=== PATIENT | male | born 1945 | race Caucasian/White ===

== ENCOUNTER 2016-02-19 12:33 | Inpatient (IN) | payer MEDICARE, OTHER ==
[~2016-02-19] VITALS: Ht 180.3 cm; Wt 117.1 kg
--- OUTSIDE RECORDS SUMMARY | 2016-02-19 12:38 | XMS REPORT | Continuity of Care Document ---
Author Author [facility] Organization [facility] Address Unknown Phone Unavailable Care Team Providers Care Front Line Supervisor Name Role Phone Unknown, Unknown PCP Unavailable Source Comments Some departments are not documenting in the electronic medical record. If you do not see the information that you expected, contact Release of Information in the Health Information Management department at [phone] for further assistance in locating additional records.[facility] Active Allergies and Adverse Reactions Allergen Noted Date Severity Reactions Comments Sms Unclassified Drug 10/18/2004 Allergy recorded in SMS: ADVIL DECONGEST~Reactions: PASSED OUT Current Medications Prescription Sig. Disp. Refills Start End Date Status Date losartan-hydrochlorothiaz Take 1 Tab by mouth Active torri (HYZAAR) 100-25 mg PO daily. per tablet omeprazole (PRILOSEC OTC) Take 20 mg by mouth Active 20 mg PO tablet daily. simvastatin (ZOCOR) 20 mg Take 20 mg by mouth Active PO tablet daily. aspirin EC (ASPIR-81) 81 Take 81 mg by mouth Active mg PO tablet daily. will hold for sx fexofenadine(+) (FRITZ) Take 180 mg by mouth Active 180 mg PO tablet daily. montelukast (SINGULAIR) Take 10 mg by mouth Active 10 mg PO tablet daily. meclizine (ANTIVERT) 25 Take 25 mg by mouth Active mg PO tablet daily. DOCOSAHEXANOIC ACID/EPA Take 1,000 mg by mouth Active (FISH OIL PO) daily. fluticasone (FLONASE) 50 Insert 2 Sprays into nose 2 Inhaler 5 Active mcg/actuation nasal spray as directed twice daily. 12 Cholecalciferol (Vitamin Take 1 Cap by mouth Active D3) (VITAMIN D-3) 2,000 daily. unit cap GLUC SIMON DIPO CH/JAMI Take by mouth daily. Active SIMON/C/LATONYA (GLUCOSAM SIMON OXV-[id number]-K-MN PO) MULTIVITAMIN PO Take by mouth daily. Active acetaminophen (TYLENOL) Take 1,000 mg by mouth as Active 500 mg tablet Needed. guaiFENesin LA (MUCINEX) Take 600 mg by mouth as Active 600 mg tablet Needed. metFORMIN (GLUCOPHAGE) Take 500 mg by mouth Active 500 mg tablet twice daily with meals. naproxen (NAPROSYN) 500 Take 500 mg by mouth Active mg tablet twice daily with meals. diltiazem SA (+) (TIAZAC) Take 240 mg by mouth Active 240 mg capsule daily. cycloSPORINE (RESTASIS) Place 1 Drop into or Active 0.05 % ophthalmic around eye(s) twice emulsion daily. clindamycin (CLEOCIN T; Apply to affected area 60 mL 3 10/20/19 Active CLINDA-DERM) 1 % topical twice daily. to scalp 15 solution bumps twice daily fluoruracil (CARAC) 0.5 % Apply to affected area 30 g 3 10/20/19 Active topical cream daily. to face, ears, 15 forehead, cheeks x 30 days acetic acid 2 drops both ears twice a 1 Bottle 3 03/08/19 Active 2%/Hydrocortisone 1% day for itching times 7 16 (ACETASOL HC) 2-1 % otic days. solution dexamethasone (DECADRON) Place 2 drops in the 10 mL 3 09/13/19 Active 0.1 % ophthalmic solution right nostril 3 times a 16 day and take 1 week off every month Active Problems Problem Noted Date Epiphora 03/22/2011 Overview: Chronically watery eyes. No specific trigger or seasonal component. Has tried OTC antihistamines drops without control. Minimal change since last visit despite interval blepharoplasty. L ast Assessment & Plan: Allergic conjunctivitis vs dry eyes. Recommend follow up with ophthalmology for dry eye test. Continue allergy medical management. 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 Currently mostly asymptomatic. Overall still feels fairly well controlled from an allergy standpoint. Has frequent watery eyes, but otherwise minimal sinonasal allergy symptoms. Seeing Dr. Abreu later today. L ast Assessment & Plan: Continue current medical management. Again briefly reviewed immunotherapy as an option, but Mr. Valencia is not interested at this time. Unspecified essential hypertension Overview: OV-01/03/2010 Social History Tobacco Use Types Packs/Day Years Used Date Never Smoker Smokeless Tobacco: Never Used Alcohol Use Drinks/Week oz/Week Comments No Last Filed Vital Signs Vital Sign Reading Time Taken Blood Pressure 124/83 09/13/2015 11:40 AM CDT Pulse 76 09/13/2015 11:40 AM CDT Temperature - - Respiratory Rate - - Height 1.803 m (5' 11") 09/13/2015 11:40 AM CDT Weight 117.482 kg (259 lb) 09/13/2015 11:40 AM CDT Body Mass Index 36.14 09/13/2015 11:40 AM CDT Oxygen Saturation - - Plan of Care Date Type Specialty Providers Description 03/07/2016 Appointment Dermatology Srinivasa Sorto MD [id number] [facility] [address] [place] [address] [phone] (Fax) Health Maintenance Due Date Last Done Comments Hepatitis C Screening 1945 Physical (Comprehensive) 1952 Exam Pertussis Vaccine 1956 Tetanus Vaccine 1962 Colorectal Cancer 06/04/1995 Screening Shingles Vaccine 2005 Prevnar/Pneumovax (#1) 2010 Influenza Vaccine 10/13/2015 Results from Last 3 Months Not on file
[2016-02-19] MEDS ORDERED: METF500T4 PO (13:14)
[2016-02-19] MEDS ORDERED: OMEP20CA12 PO (13:14)
[2016-02-19] MEDS ORDERED: DILT240C87 PO (13:14)
[2016-02-19] MEDS ORDERED: NAPR500T PO (13:14)
[2016-02-19] MEDS ORDERED: MONT10TA24 PO (13:14)
[2016-02-19] MEDS ORDERED: LOSA1TAB70 PO (13:14)
[2016-02-19] MEDS ORDERED: MELO15TA39 PO (13:14)
[2016-02-19] MEDS ORDERED: TOLT2TAB5 PO (13:14)
[2016-02-19] MEDS ORDERED: SIMV20TA3 PO (13:14)
[2016-02-19] MEDS ORDERED: MECL-106 PO (13:14)
[2016-02-19] MEDS ORDERED: NS IV 1000 ML 1,000 ML IV SCH (14:15)
[2016-02-19] MEDS ORDERED: ONDANSETRON 4 MG/2 ML (SDV) Z0FRAN IVP ONE (14:15)
[2016-02-19 14:27] LABS: BILIRUBIN,URINE NEGATIVE (NEGATIVE); KETONES,URINE NEGATIVE (NEGATIVE); LEUKOCYTE ESTERASE ,URINE NEGATIVE (NEGATIVE); NITRITE,URINE NEGATIVE (NEGATIVE); PH,URINE 7 (5-9); PROTEIN,URINE NEGATIVE (NEGATIVE); UROBILINOGEN,URINE NORMAL (NORMAL)
[2016-02-19 14:33] LABS: SQUAMOUS EPITHELIAL CELL,UR RARE /HPF
[2016-02-19 14:41] LABS: BASOPHILS % (AUTO) 0 % (0-10); EOSINOPHILS % (AUTO) 0 % (0-10); LYMPHOCYTES # (AUTO) 2.1 X 10^3 (1.0-4.0); LYMPHOCYTES % (AUTO) 12 % (12-44); MEAN CORPUSCULAR HEMOGLOBIN 30 PG (25-34); MEAN CORPUSCULAR HGB CONC 34 G/DL (32-36); MEAN CORPUSCULAR VOLUME 88 FL (80-99); MEAN PLATELET VOLUME 10.2 FL (7.4-10.4); MONOCYTES # (AUTO) 0.8 X 10^3 (0.0-1.0); MONOCYTES % (AUTO) 5 % (0-12); NEUTROPHILS # (AUTO) 14.5 X 10^3 (1.8-7.8); NEUTROPHILS % (AUTO) 83 % (42-75); PLATELET COUNT 254 10^3/uL (130-400); RED BLOOD COUNT 5.44 10^6/uL (4.35-5.85); RED CELL DISTRIBUTION WIDTH 13.8 % (10.0-14.5); WHITE BLOOD COUNT 17.5 10^3/uL (4.3-11.0)
--- NOTE | 2016-02-19 14:58 | Diagnostic Imaging Report ---
PROCEDURE: CT abdomen and pelvis without contrast. TECHNIQUE: Multiple contiguous axial images were obtained through the abdomen and pelvis without the use of intravenous contrast. INDICATION: Abdominal pain, nausea, vomiting COMPARISON: March 16, 2011 FINDINGS: Calcified granuloma are identified within the right lung base. Mild bibasilar scarring and/or atelectasis. Calcified mediastinal and hilar lymph nodes are partially visualized. No significant pericardial effusion. No significant basilar pleural effusion. Small hiatal hernia. The unenhanced liver is unremarkable. Calcified splenic granuloma. Otherwise, the spleen is unremarkable. The adrenal glands are unremarkable. The gallbladder is unremarkable. A 4 mm calculus is identified within the proximal right ureter. This is resulting in mild right hydroureteronephrosis. Several additional renal calculi are identified within the right kidney, largest measuring up to 5 mm. Several nonobstructing left renal calculi are again identified. 1.6 cm hypodensity arising from the lateral aspect of the inferior pole of the left kidney has not significantly changed since 2011, suggesting a benign etiology. Significant fat stranding is identified within the right upper quadrant of the abdomen, particularly about the duodenum and head of the pancreas with inflammatory stranding extending towards the right renal hilum. Additional fat stranding and fluid is seen involving the anterior right pararenal fascia. The pancreatic parenchyma appears grossly unremarkable. Mild vascular calcifications within abdominal aorta and its branch vessels without aneurysmal dilatation of abdominal aorta. Small fat-containing umbilical hernia. The urinary bladder is unremarkable. Minimal colonic diverticulosis. No bowel obstruction or pneumatosis. Prasanth hepatic lymph node is borderline enlarged measuring 1.6 cm in short dimension, slightly more prominent than the prior examination. No free air. No acute osseous abnormality with scattered osseous degenerative changes. IMPRESSION: 1. 4 mm calculus within the proximal right ureter resulting in mild right hydroureteronephrosis. 2. Additional bilateral renal calculi, nonobstructing on the left. 3. Significant fat stranding within the right upper quadrant adjacent to the duodenum and pancreatic head extending to the right renal pelvis. These findings are nonspecific. Findings may simply relate to underlying pyelonephritis. However, duodenitis or pancreatitis could appear similar. Recommend clinical correlation with laboratory values for pancreatitis. No focal fluid collection is seen. 4. Borderline prominent prasanth hepatic lymph nodes, likely reactive. 5. Evidence of chronic granulomatous disease. 6. Small hiatal hernia. 7. Additional findings as above. Dictated by: Dictated on workstation # [id number]
[2016-02-19 15:00] LABS: ALANINE AMINOTRANSFERASE 44 U/L (0-55); ALBUMIN 4.4 G/DL (3.2-4.5); ANION GAP 11 MMOL/L (5-14); ASPARTATE AMINO TRANSFERASE 23 U/L (5-34); BILIRUBIN,TOTAL 0.6 MG/DL (0.1-1.0); BLOOD UREA NITROGEN 21 MG/DL (7-18); BUN/CREATININE RATIO 22; CALCIUM 9.5 MG/DL (8.5-10.1); CARBON DIOXIDE 25 MMOL/L (21-32); CHLORIDE 102 MMOL/L (98-107); CREATININE SERUM 0.97 MG/DL (0.60-1.30); GFR ESTIMATED > 60; GLUCOSE 126 MG/DL (70-105); LIPASE 15 U/L (8-78); POTASSIUM 3.8 MMOL/L (3.6-5.0); SODIUM 138 MMOL/L (135-145); TOTAL PROTEIN 7.3 G/DL (6.4-8.2)
[2016-02-19 15:22] LABS: BAND NEUTROPHILS 0 %; BASOPHILS % (MANUAL) 1 %; EOSINOPHILS % (MANUAL) 0 %; LYMPHOCYTES % (MANUAL) 4 %; NEUTROPHILS % (MANUAL) 82 %; REACTIVE LYMPHOCYTES 12 %
[2016-02-19] MEDS ORDERED: cefTRIAXone 1 GM (ROCEPHIN) VIAL ONE ×2 (15:34→15:43)
[2016-02-19] MEDS ORDERED: NORMAL SALINE (BAXTER MINI) 50 ML IV ONE (15:34)
--- NOTE | 2016-02-19 15:43 | ED Abdominal Pain ---
General Chief Complaint: Abdominal/GI Problems Stated Complaint: BACK PAIN/VOMITING Nursing Triage Note: Ambulatory to ED 10 with complaints of right flank pain and vomiting. Sepsis Screen: No Definite Risk Source of Information: Patient, Family Exam Limitations: No Limitations History of Present Illness Time Seen By Provider: 15:37 Initial Comments This 70-year-old male presents with a history of right flank and right upper abdominal pain that began last night and progressed today. The patient had associated nausea and vomiting. The patient stated the back and abdominal pain became severe. It was nonradiating. The patient had no associated cough, shortness of breath, palpitations, pressure type chest pain, headache or stiff neck, recent change in medication, or diarrhea. The patient has had had some constipation but has been able have 2 small bowel movements after employing a stool softener. Patient's past medical history includes hypertension. Allergies and Home Medications Allergies Coded Allergies: Fluticasone (Verified Allergy, Unknown, 06/17/08) Salmeterol (Verified Allergy, Unknown, 06/17/08) Home Medications Diltiazem HCl 240 Mg Capsule.er 240 MG PO DAILY (Reported) Losartan/Hydrochlorothiazide 1 Each Tablet 1 EACH PO DAILY (Reported) Meclizine HCl 25 Mg Tablet 25 MG PO TID (Reported) Meloxicam 15 Mg Tablet 15 MG PO DAILY (Reported) Metformin HCl 500 Mg Tablet 500 MG PO BID WITH MEALS (Reported) Montelukast Sodium 10 Mg Tablet 10 MG PO DAILY (Reported) Naproxen 500 Mg Tablet 500 MG PO DAILY (Reported) Omeprazole 20 Mg Capsule.dr 20 MG PO DAILY (Reported) Simvastatin 20 Mg Tablet 20 MG PO DAILY (Reported) Tolterodine Tartrate 2 Mg Tablet 2 MG PO BID (Reported) Review of Systems Constitutional: No chills, No fever EENTM: No Blurred Vision Respiratory: Denies Cough Cardiovascular: Denies Chest Pain Gastrointestinal: Abdominal Pain ConstipatedDenies Diarrhea, Denies Rectal Bleeding, Vomiting Genitourinary: Denies Burning, Denies Frequency, Flank Pain (right-sided) Musculoskeletal: back painNo joint pain Skin: No rash Psychiatric/Neurological: No Symptoms Reported Endocrine: No Symptoms Reported Hematologic/Lymphatic: No Symptoms Reported Past Boeghlw-Agtqwe-Bzibvi Hx Patient Social History Alcohol Use: Denies Use Recreational Drug Use: No Smoking Status: Never a Smoker Recent Foreign Travel: No Contact w/Someone Who Travel: No Recent Infectious Disease Expo: No Recent Hopitalizations: No Physical Abuse Screen: No Sexual Abuse: No Immunizations Up To Date Tetanus Booster (TDap): Less than 5yrs PED Vaccines UTD: Yes Seasonal Allergies Seasonal Allergies: No Respiratory Hx Respiratory Disorders: No Cardiovascular Hx Cardiac Disorders: Yes Cardiac Disorders: High Cholesterol, Hypertension Neurological Hx Neurological Disorders: No Reproductive System Hx Reproductive Disorders: No Sexually Transmitted Disease: No Genitourinary Hx Genitourinary Disorders: No Gastrointestinal Hx Gastrointestinal Disorders: Yes (hiatal hernia) Gastrointestinal Disorders: Gastroesophageal Reflux Musculoskeletal Hx Musculoskeletal Disorders: Yes (arthritis) Endocrine Hx Endocrine Disorders: No HEENT HX ENT Disorders: Yes (cochlear implant) Cancer Hx Cancer: No Psychosocial Hx Psychiatric Problems: No Blood Transfusions Hx Blood Disorders: No Reviewed Nursing Assessment Reviewed/Agree w Nursing PMH: Yes Physical Exam Vital Signs VS - Last 72 Hours, by Label 02/19/16 13:05 Temp 97.9 Pulse 66 Resp 18 B/P 139/90 Pulse Ox 94 O2 Delivery Room Air Capillary Refill : Less Than 3 Seconds General Appearance: WD/WN mild distress HEENT: normal ENT inspection Neck: normal inspection Respiratory: lungs clear normal breath sounds no respiratory distress no accessory muscle use Cardiovascular: normal peripheral pulses regular rate, rhythm no murmur Gastrointestinal: normal bowel sounds non tender soft no organomegaly Extremities: normal range of motion non-tender normal inspection no pedal edema Back: normal inspection Neurologic/Psychiatric: no motor/sensory deficits alert normal mood/affect Skin: normal color warm/dry Progress/Results/Core Measures Results/Orders Lab Results Laboratory Tests Test 02/19/16 14:20 02/19/16 14:30 Range/Units Urine Bacteria NEGATIVE /HPF Urine Bilirubin NEGATIVE NEGATIVE Urine Casts NONE /LPF Urine Clarity CLEAR Urine Color YELLOW Urine Crystals NONE /LPF Urine Culture Indicated NO Urine Glucose (UA) NEGATIVE NEGATIVE Urine Ketones NEGATIVE NEGATIVE Urine Leukocyte Esterase NEGATIVE NEGATIVE Urine Mucus NEGATIVE /LPF Urine Nitrite NEGATIVE NEGATIVE Urine Protein NEGATIVE NEGATIVE Urine RBC TNTC H /HPF Urine RBC (Auto) 5+ H NEGATIVE Urine Specific [place] 1.010 L 1.016-1.022 Urine Squamous Epithelial Cells RARE /HPF Urine Urobilinogen NORMAL NORMAL MG/DL Urine WBC NONE /HPF Urine pH 7 5-9 Alanine Aminotransferase (ALT/SGPT) 44 0-55 U/L Albumin 4.4 3.2-4.5 G/DL Alkaline Phosphatase 74 40-136 U/L Anion Gap 11 5-14 MMOL/L Aspartate Amino Transf (AST/SGOT) 23 5-34 U/L BUN/Creatinine Ratio 22 Band Neutrophils 0 % Basophils # (Auto) 0.0 0.0-0.1 10^3/uL Basophils % (Manual) 1 % Basophils (%) (Auto) 0 0-10 % Blood Morphology Comment NORMAL Blood Urea Nitrogen 21 H 7-18 MG/DL Calcium Level 9.5 8.5-10.1 MG/DL Carbon Dioxide Level 25 21-32 MMOL/L Chloride Level 102 98-107 MMOL/L Creatinine 0.97 0.60-1.30 MG/DL Eosinophils # (Auto) 0.0 0.0-0.3 10^3/uL Eosinophils % (Manual) 0 % Eosinophils (%) (Auto) 0 0-10 % Estimat Glomerular Filtration Rate > 60 Glucose Level 126 H 70-105 MG/DL Hematocrit 48 40-54 % Hemoglobin 16.3 13.3-17.7 G/DL Lipase 15 8-78 U/L Lymphocytes # (Auto) 2.1 1.0-4.0 X 10^3 Lymphocytes % (Manual) 4 % Lymphocytes (%) (Auto) 12 12-44 % Mean Corpuscular Hemoglobin 30 25-34 PG Mean Corpuscular Hemoglobin Concent 34 32-36 G/DL Mean Corpuscular Volume 88 80-99 FL Mean Platelet Volume 10.2 7.4-10.4 FL Monocytes # (Auto) 0.8 0.0-1.0 X 10^3 Monocytes % (Manual) 1 % Monocytes (%) (Auto) 5 0-12 % Neutrophils # (Auto) 14.5 H 1.8-7.8 X 10^3 Neutrophils % (Manual) 82 % Neutrophils (%) (Auto) 83 H 42-75 % Platelet Count 254 130-400 10^3/uL Potassium Level 3.8 3.6-5.0 MMOL/L Reactive Lymphocytes 12 % Red Blood Count 5.44 4.35-5.85 10^6/uL Red Cell Distribution Width 13.8 10.0-14.5 % Sodium Level 138 135-145 MMOL/L Total Bilirubin 0.6 0.1-1.0 MG/DL Total Protein 7.3 6.4-8.2 G/DL White Blood Count 17.5 H 4.3-11.0 10^3/uL My Orders Orders-KIKA RODRIGUEZ MD Cbc With Automated Diff (02/19/16 14:12) Comprehensive Metabolic Panel (02/19/16 14:12) Ua Culture If Indicated (02/19/16 14:12) Lipase (02/19/16 14:12) Ct Abdomen/Pelvis Wo (02/19/16 14:12) Ns Iv 1000 Ml (Sodium Chloride 0.9%) (02/19/16 14:15) Ondansetron Injection (Zofran Injectio (02/19/16 14:15) Manual Differential (02/19/16 14:30) Rocephin 2 Gm Iv (1x Dose) (02/19/16 15:45) Fentanyl Injection (Sublimaze Injection (02/19/16 15:45) Medications Given in ED Current Medications Medications Dose Ordered Sig/Chip Route Start Time Stop Time Status Last Admin Dose Admin Ondansetron HCl 4 mg ONCE ONCE IVP 02/19/16 14:15 02/19/16 14:16 DC 02/19/16 14:32 4 MG Vital Signs/I&O Vital Sign - Last 12Hours 02/19/16 13:05 Temp 97.9 Pulse 66 Resp 18 B/P 139/90 Pulse Ox 94 O2 Delivery Room Air Blood Pressure Mean: 106 Progress Note : Time: 15:42 Progress Note The patient's CT abdomen and pelvis demonstrated a 4 mm proximal right ureteral stone. There was some evidence of inflammation about the duodenum and pancreatic head. The patient's nausea was abated with IV ondansetron. The patient's pain was treated with 50 g of fentanyl and the patient's probable pyelonephritis from an obstructing ureteral calculi was treated with 2 g of Rocephin. Departure Communication Time/Spoke to Admitting Phy: 15:[address] Rubin Impression Impression: Primary Impression: Right ureteral calculus Additional Impressions: Right ureteral stone Pyelonephritis Disposition: ADMITTED INPATIENT Condition: Improved Decision to Admit Reason: Admit from ER (General) Decision to Admit/Date: Feb 19, 2016 Time/Decision to Admit Time: 15:45 Departure-Patient Inst. Referrals: EMILE DAVID DO (PCP/Family) Primary Care Physician KIKA RODRIGUEZ MD Feb 19, 2016 15:43
[2016-02-19] MEDS ORDERED: CEFTRIAXONE IV ONE (15:45)
[2016-02-19] MEDS ORDERED: NORMAL SALINE IV ONE (15:45)
[2016-02-19] MEDS ORDERED: fentaNYL INJECTION 100 MCG/2 ML AMP IVP PRN (15:45)
[2016-02-19 16:15] VITALS: BP 153/82
[2016-02-19] MEDS ORDERED: ONDANSETRON 4 MG/2 ML (SDV) Z0FRAN IV PRN (16:45)
[2016-02-19] MEDS ORDERED: fentaNYL INJECTION 100 MCG/2 ML AMP IV PRN (16:45)
[2016-02-19] MEDS: NS IV 1000 ML 1,000 ML IV SCH (16:45)
[2016-02-19 20:18] VITALS: BP 140/82
[2016-02-19] MEDS: ACETAMINOPHEN 500 MG TAB (TYLENOL) PO PRN (21:37)
[2016-02-20] VITALS: BP 127/78
[2016-02-20] MEDS: NS IV 1000 ML 1,000 ML IV SCH (03:13)
[2016-02-20 04:00] VITALS: BP 136/79
[2016-02-20 06:04] LABS: BASOPHILS % (AUTO) 0 % (0-10); EOSINOPHILS # (AUTO) 0.1 10^3/uL (0.0-0.3); EOSINOPHILS % (AUTO) 1 % (0-10); LYMPHOCYTES % (AUTO) 20 % (12-44); MEAN CORPUSCULAR HEMOGLOBIN 30 PG (25-34); MEAN CORPUSCULAR HGB CONC 34 G/DL (32-36); MEAN CORPUSCULAR VOLUME 89 FL (80-99); MEAN PLATELET VOLUME 10.7 FL (7.4-10.4); MONOCYTES # (AUTO) 1.2 X 10^3 (0.0-1.0); MONOCYTES % (AUTO) 8 % (0-12); NEUTROPHILS # (AUTO) 10.7 X 10^3 (1.8-7.8); NEUTROPHILS % (AUTO) 71 % (42-75); PLATELET COUNT 240 10^3/uL (130-400); RED BLOOD COUNT 5.03 10^6/uL (4.35-5.85); RED CELL DISTRIBUTION WIDTH 13.9 % (10.0-14.5)
[2016-02-20 06:29] LABS: ALANINE AMINOTRANSFERASE 34 U/L (0-55); ALBUMIN 3.8 G/DL (3.2-4.5); ANION GAP 11 MMOL/L (5-14); ASPARTATE AMINO TRANSFERASE 20 U/L (5-34); BILIRUBIN,TOTAL 0.7 MG/DL (0.1-1.0); BLOOD UREA NITROGEN 16 MG/DL (7-18); BUN/CREATININE RATIO 20; CALCIUM 8.6 MG/DL (8.5-10.1); CARBON DIOXIDE 22 MMOL/L (21-32); CHLORIDE 103 MMOL/L (98-107); CREATININE SERUM 0.79 MG/DL (0.60-1.30); GFR ESTIMATED > 60; GLUCOSE 118 MG/DL (70-105); POTASSIUM 3.4 MMOL/L (3.6-5.0); SODIUM 136 MMOL/L (135-145); TOTAL PROTEIN 6.4 G/DL (6.4-8.2)
[2016-02-20] MEDS ORDERED: FLU TRIvalent (5 YOA+) 2016-17 (AFLURIA) 0.5 ML IM ONE (07:15)
[2016-02-20 08:13] VITALS: BP 127/83
[2016-02-20] MEDS ORDERED: CATHETER FLUSH 10 ML SYR IV PRN (08:45)
[2016-02-20] MEDS ORDERED: FLUT16SP22 NS (08:55)
[2016-02-20] MEDS ORDERED: DILT240C47 PO (08:55)
--- NOTE | 2016-02-20 08:55 | Diagnostic Imaging Report ---
INDICATION: Right ureteral stone. COMPARISON STUDY: CT scan from February 18. FINDINGS: A supine view of the abdomen demonstrates tiny calcifications overlying the right kidney which were seen on the CT scan. The calcification overlying the right ureter near the L5-S1 level is not visualized. This overlies some osteophytes in this area and could be missed. IMPRESSION: Right renal calculi are present. The calculus in the right ureter is not identified. This could be obscured by overlying degenerative changes of the lumbar spine. Dictated by: Dictated on workstation # [id number]
[2016-02-20] MEDS ORDERED: SODI1PAC NS (09:08)
[2016-02-20] MEDS ORDERED: ASPI-983 PO (09:08)
[2016-02-20] MEDS ORDERED: OMG1KC PO (09:08)
[2016-02-20] MEDS ORDERED: SODI14.12 TP (09:08)
[2016-02-20] MEDS ORDERED: CYAN500T2 PO (09:08)
[2016-02-20] MEDS ORDERED: CHOL20003 PO (09:08)
[2016-02-20] MEDS ORDERED: DICL100G18 TOP (09:08)
[2016-02-20] MEDS ORDERED: PROP1DRO4 OU (09:08)
[2016-02-20] MEDS ORDERED: LACTULOSE SYRUP 10GM/15ML (ENULOSE) 30ML UDC PO SCH (10:00)
[2016-02-20] MEDS ORDERED: DICLOFENAC 1% GEL 100 GM (VOLTAREN) TUBE TOP PRN (10:15)
--- NOTE | 2016-02-20 10:25 | Short Stay Summary-Hospitalist ---
HPI History of Present Illness: HPI/Chief Complaint CC: Right flank pain and constipation HPI: This is a 70yoWM pt of Dr. Sawyer's with no hx of kidney stones presented with right flank pain and severe constipation. He was found to have kidney stone in renal colic. Pt now has no pain. Dr. Bella has arranged for appt. Pt still having constipation which I will manage. Patient Interview: Pt states that he uses [facility]. Pt states that he has a follow-up with Dr. Bella on , and will see Dr. Sawyer soon. Dr. Hernandez informs pt that he will have an x-ray. Pt states that he has pain, but suspects that some of it is due to sitting in bed. His worst pain has gone. Pt states that he has been ambulating. Pt's asks about possible bowel complications. Dr. Hernandez explains that this is likely a side-effect of kidney stones, but will be monitored closely. Pt denies smoking and drinking ETOH. Pt states that he had a reaction to Advil, and was told that he had multiple drug allergies due to asthma, but is confused because he does not have asthma. Dr. Hernandez informs pt that pharmacy will consult to clear this issue. Pt denies having BM, and took a stool softener Saturday morning. Scribed by Carmelo Gregory under the direct supervision of Dr. Hernandez. Source: patient Exam Limitations: no limitations Date Seen 02/20/16 Attending Physician Justin Rubin MD PCP Urbano Sawyer DO Referring Physician Date of Admission Feb 19, 2016 at 15:45 Home Medications & Allergies Home Medications Reviewed patient Home Medication Reconciliation Form Allergies Coded Allergies: ibuprofen (Verified Adverse Reaction, Mild, passed out, 02/20/16) Patient states the only thing he has had a reaction to is the advil cold and sinus he received at a conference once and it made him pass out, he wishes to not receive this medication pseudoephedrine (Verified Adverse Reaction, Mild, passed out, 02/20/16) Patient states the only thing he has had a reaction to is the advil cold and sinus he received at a conference once and it made him pass out, he wishes to not receive this medication Past Guqyhfz-Qttjwm-Jrvnlg Hx Patient Social History Marrital Status: Employed/Student: retired (soccer coach football) Alcohol Use: Denies Use Recreational Drug Use: No Smoking Status: Never a Smoker Physical Abuse Screen: No Sexual Abuse: No Recent Foreign Travel: No Contact w/other who traveled: No Recent Hopitalizations: No Recent Infectious Disease Expo: No Immunizations Up To Date Tetanus Booster (TDap): Less than 5yrs Date of Pneumonia Vaccine: Feb 10, 2016 Seasonal Allergies Seasonal Allergies: No Surgeries HX Surgeries: No Respiratory Hx Respiratory Disorders: No Cardiovascular Hx Cardiovascular Disorders: Yes Cardiac Disorders: High Cholesterol, Hypertension Neurological Hx Neurological Disorders: No Reproductive System Hx Reproductive Disorders: No Sexually Transmitted Disease: No HIV/AIDS: No Genitourinary Hx Genitourinary Disorders: No Genitourinary Disorders: Kidney Stones Gastrointestinal Hx Gastrointestinal Disorders: Yes (hiatal hernia) Gastrointestinal Disorders: Gastroesophageal Reflux, Hiatal Hernia Musculoskeletal Hx Musculoskeletal Disorders: Yes (arthritis) Musculoskeletal Disorders: Arthritis Endocrine Hx Endocrine Disorders: No HEENT HX ENT Disorders: Yes (cochlear implant) Hearing Impairment: Hard of Hearing Cancer Hx Cancer: No Psychosocial Hx Psychiatric Problems: No Blood Transfusions Hx Blood Disorders: No Reviewed Nursing Assessment Reviewed/Agree w Nursing PMH: Yes Family Medical History Family Hx: DENIES Review of Systems Constitutional: see HPI EENTM: no symptoms reported Respiratory: no symptoms reported Cardiovascular: no symptoms reported Gastrointestinal: abdominal pain (LUQ) loss of appetite nausea Genitourinary: hematuria hesitancy Musculoskeletal: back pain Skin: no symptoms reported Psychiatric/Neurological: No Symptoms Reported All Other Systems Reviewed Negative Unless Noted: Yes Physical Exam Physical Exam Vital Signs Vital Sign - Last 12Hours 02/19/16 13:05 Temp 97.9 Pulse 66 Resp 18 B/P 139/90 Pulse Ox 94 O2 Delivery Room Air Capillary Refill : Less Than 3 SecondsLess Than 3 Seconds General Appearance: No Apparent Distress WD/WN Obese Eyes: Bilateral Eye Normal Inspection, Bilateral Eye PERRL HEENT: PERRL/EOMI Normal ENT Inspection Pharynx Normal Neck: Full Range of Motion Normal Inspection Non Tender Supple Carotid Bruit Respiratory: Chest Non Tender Lungs Clear Normal Breath Sounds No Accessory Muscle Use No Respiratory Distress Cardiovascular: Regular Rate, Rhythm No Edema No Gallop No JVD No Murmur Normal Peripheral Pulses Gastrointestinal: Normal Bowel Sounds No Organomegaly No Pulsatile Mass Non Tender Soft Back: Normal Inspection No CVA Tenderness No Vertebral Tenderness Extremity: Normal Capillary Refill Normal Inspection Normal Range of Motion Non Tender No Calf Tenderness No Pedal Edema Neurologic/Psychiatric: Alert Oriented x3 No Motor/Sensory Deficits Normal Mood/Affect Skin: Normal Color Warm/Dry Lymphatic: No Adenopathy Results Results/Procedures Lab Laboratory Tests 02/19/16 14:30 02/20/16 05:25 Short Stay Diagnosis Discharge Diagnosis-Short Stay Admission Diagnosis Assessment: Renal colic due to kidney stone New onset severe constipation Hyperlipidemia GERD HTN Allergies OA DM Overactive bladder Final Discharge Diagnosis Assessment: Renal colic due to kidney stone New onset severe constipation Hyperlipidemia GERD HTN Allergies OA DM Overactive bladder Conclusion Plan Plan: Pharmacy consult regarding drug allergies listed that he is allergic to? Follow-up with Drs. Bella and Silverio. Lactulose DC home today KUB on am Clinical Quality Measures DVT/VTE Risk/Contraindication: Risk Factor Score Per Nursin RFS Level Per Nursing on Admit: 4+=Very High GEOVANNY HERNANDEZ DO Feb 20, 2016 10:25
[2016-02-20] MEDS: ACETAMINOPHEN 500 MG TAB (TYLENOL) PO PRN (11:21)
[2016-02-20] MEDS ORDERED: HYDR-3812 PO (11:49)
[2016-02-20] MEDS ORDERED: LACT20SO2 PO (11:49)
[2016-02-20] MEDS ORDERED: AMOX-355 PO (11:49)
[2016-02-20] MEDS ORDERED: TAMS0.4C98 PO (11:49)
--- NOTE | 2016-02-20 11:50 | Discharge Instructions ---
Discharge Instructions Discharge Medications New, Converted or Re-Newed RX: Transmitted to Pharmacy New Medications: Amoxicillin/Potassium Clav (Augmentin 500-125 Tablet) 1 Each Tablet 1 EACH PO BID PRN #8 TAB Hydrocodone/Acetaminophen (Hydrocodon -Acetaminophen 5-325) 1 Each Tablet 1 EACH PO Q4H PRN PAIN #30 TAB Tamsulosin HCl (Flomax) 0.4 Mg Cap 0.4 MG PO HS #30 CAP Lactulose (Lactulose) 20 Gm/30 Ml Solution 10 GM PO BID #8 OZ Continued Medications: Aspirin (Aspirin EC) 81 Mg Tablet.dr 81 MG PO DAILY TAB Cholecalciferol (Vitamin D3) (Vitamin D3) 2,000 Unit Capsule 2000 UNIT PO DAILY CAP Cyanocobalamin (Vitamin B-12) (Vitamin B-12) 500 Mcg Tablet 500 MCG PO DAILY TAB Diclofenac Sodium (Voltaren) 100 Gm Gel..gram. TOP BID PRN PAIN EA Diltiazem HCl (Dilt-Xr) 240 Mg Cap.er.deg 240 MG PO DAILY CAP Fluticasone Propionate (Fluticasone Propionate) 16 Gm [place].susp 2 SPRAY NS BID EA Losartan/Hydrochlorothiazide (Losartan-Hctz 100-25 mg Tab) 1 Each Tablet 1 TAB PO DAILY TAB Meclizine HCl (Meclizine HCl) 25 Mg Tablet 25 MG PO BID TAB Meloxicam (Meloxicam) 15 Mg Tablet 15 MG PO HS TAB Metformin HCl (Metformin HCl) 500 Mg Tablet 500 MG PO BID WITH MEALS TAB Montelukast Sodium (Montelukast Sodium) 10 Mg Tablet 10 MG PO DAILY TAB [place] 3 Polyunsat Fatty Acids (Fish Oil 1,000 mg Capsule) 1,000 Mg Cap 1000 MG PO DAILY CAP Omeprazole (Omeprazole) 20 Mg Capsule.dr 20 MG PO DAILY CAP Propylene Glycol/Peg 400/Pf (Systane Ultra 0.4-0.3% Eye Drp) 1 Each Droperette 1 DROP OU BID DROP Simvastatin (Simvastatin) 20 Mg Tablet 20 MG PO DAILY TAB Sodium Chloride/Aloe Vera ([place] Saline Nasal Gel) 14.1 Gm Gel..gram. TP BID TUBE Sodium Chloride/Sodium Bicarb (Sinus Rinse Refill Packets) 1 Each Packet 1 PACKET NS DAILY PACKET Tolterodine Tartrate (Tolterodine Tartrate) 2 Mg Tablet 2 MG PO DAILY TAB Patient Instructions Goal/Follow Up Appt: Dr Bella on as scheduled Dr Sawyer in 1 week Activity & Diet Discharge Diet: No Restrictions Activity as Tolerated: Yes GEOVANNY HERNANDEZ DO Feb 20, 2016 11:50
[2016-02-20] MEDS ORDERED: cefTRIAXone 1 GM/NS 50 ML IVPB IV SCH ×2 (15:00)
[2016-02-20] MEDS ORDERED: metFORMIN 500 MG (GLUCOPHAGE) TAB PO SCH (17:00)
[2016-02-20] MEDS ORDERED: ALFUZOSIN HCL 10 MG TAB (UROXATRAL) PO SCH (18:00)
[2016-02-20] MEDS ORDERED: SIMvastatin 20 MG (ZOCOR) TAB PO SCH (21:00)
[2016-02-20] MEDS ORDERED: SOD CHL GEL 0.5 OZ (AYR SALINE NASAL GEL) TUBE TOP SCH (21:00)
[2016-02-20] MEDS ORDERED: ATORVASTATIN 10 MG (LIPITOR) TABLET PO SCH (21:00)
[2016-02-20] MEDS ORDERED: ARTIFICAL TEARS 0.4 ML UNIT DOSE (REFRESH PLUS) OU SCH (21:00)
[2016-02-20] MEDS ORDERED: FLUTICASONE NASAL SPRAY (FLONASE) 16 GM BTL NS SCH (21:00)
[2016-02-20] MEDS ORDERED: MECLIZINE 25 MG (ANTIVERT) TAB PO SCH (21:00)
[2016-02-20] MEDS ORDERED: NON-FORMULARY MEDICATION 1 EA EA (Meloxicam 15 MG) PO SCH (21:00)
[2016-02-20] MEDS ORDERED: MELOXICAM 7.5 MG (MOBIC) TABLET PO SCH (21:00)
[2016-02-21] MEDS ORDERED: PANTOPRAZOLE 20 MG TABLET (PROTONIX) PO SCH (07:00)
--- NOTE | 2016-02-21 07:44 | CONSULTATION REPORT ---
DATE OF CONSULTATION: 02/20/2016 ATTENDING PHYSICIAN: Dr. Rubin. SUMMARY: After reviewing the patient's record in the hospital and in the office, interviewing him and examining him; this is a 70-year-old white man admitted through the emergency room with a right proximal 4 mm ureteral stone with pain and hematuria. He has been free of pain today. He has not the analgesics. I saw him in the past, last time in 2011 for combination of BPH and erectile dysfunction and 2 small stones in the right kidney that were asymptomatic. He never came back for follow-up after. ALLERGIES: The patient allergic to: 1. Fluconazole 2. (s/l wa-tcv-iy-ol) 3. Advil SURGERY DALY: 1. Cervical neck plate. 2. Surgery for umbilical hernia. 3. Sinus surgeries. 4. Tonsillectomy. 5. Adenoidectomy. 6. Hernia repair. PAST SURGICAL HISTORY: 1. History of skin cancer. 2. Hypertension. 3. Hyperlipidemia. 4. Gastroesophageal reflux disease. 5. Dizziness. 6. Sinusitis. 7. Allergies. 8. Mas-xvdawpl-sijuxhucr diabetes mellitus. 9. He takes medication for all of that, all per chart, reviewed and confirmed. 10. He denies any aspirin or blood thinner. IMPRESSION: Right proximal ureteral stone. MEDICAL ILLNESSES: Per history. PLAN: We will obtain a KUB today to see what the stone is. I gave him an option for him and his , either to proceed tomorrow unless he passes the stone with ureteroscopy, stone basket, lithotripsy, double-J stent or lithotomy; or observe as an outpatient to give him a chance for spontaneous passage and manage accordingly. He elected to go that route which is reasonable. I will see him back in my office on if he has not passed the stone and confirmed by KUB, we will proceed with surgical intervention. If he has any problems before then he will contact us or come to the emergency room. Job ID: [id number] Dictated Date: 02/20/2016 15:03:11 Bedspread Folder Date: 02/21/2016 07:29:54/page
[2016-02-21] MEDS ORDERED: OMEGA 3 (FISH OIL) 1000 MG CAP PO SCH (09:00)
[2016-02-21] MEDS ORDERED: NON-FORMULARY MEDICATION 1 EA EA (Tolterodine Tartrate 2 MG) PO SCH (09:00)
[2016-02-21] MEDS ORDERED: TOLTERODINE LA 2 MG (DETROL LA) CAP PO SCH (09:00)
[2016-02-21] MEDS ORDERED: ASPIRIN E.C. 81 MG (ECOTRIN) TAB PO SCH (09:00)
[2016-02-21] MEDS ORDERED: [UNRECOGNIZED DRUG - OTHER] NS SCH (09:00)
[2016-02-21] MEDS ORDERED: MONTELUKAST 10 MG (SINGULAIR) TAB PO SCH (09:00)
[2016-02-21] MEDS ORDERED: SALINE NASAL SPRAY (OCEAN) 45 ML BTL SCH (09:00)
[2016-02-21] MEDS ORDERED: NON-FORMULARY MEDICATION 1 EA EA (Diltiazem HCl (Dilt-Xr) 240 MG) PO SCH (09:00)
[2016-02-21] MEDS ORDERED: DILTIAZEM 240 MG (CARDIZEM CD) CAP PO SCH (09:00)
[2016-02-21] MEDS ORDERED: SODIUM CHLORIDE NS SCH (09:00)
[2016-02-21] MEDS ORDERED: NON-FORMULARY MEDICATION 1 EA EA (Cholecalciferol (Vitamin D3) (Vitamin D3) 2,000 UNIT) PO SCH (09:00)
[2016-02-21] MEDS ORDERED: CYANOCOBALAMIN 500 MCG TAB (VITAMIN B-12) PO SCH (09:00)
[2016-02-21] MEDS ORDERED: HYDROCHLOROTHIAZIDE 25 MG (HCTZ) TAB PO SCH (09:00)
[2016-02-21] MEDS ORDERED: VITAMIN D3 1,000 UNITS (CHOLECALCIFEROL) TABLET PO SCH (09:00)
[2016-02-21] MEDS ORDERED: SODIUM BICARB NS SCH (09:00)
[2016-02-21] MEDS ORDERED: LOSARTAN 50 MG (COZAAR) TAB PO SCH (09:00)
[2016-02-21] MEDS ORDERED: OMEPRAZOLE 20 MG (PriLOSEC) CAP NON-FORMULARY PO SCH (09:00)
--- NOTE | 2016-02-21 13:29 | Physician Query-General Query ---
Physician Query-General Query to Physician: ED RECORD STATES PYELONEPHRITIS. DO YOU AGREE OR DISAGREE WITH THIS DIAGNOSIS? PHYSICIAN RESPONSE: Based on the clinical findings in the record, please respond to the query above on this document as an addendum. Possible, probable, or questionable diagnosis can be coded for INPATIENTS ONLY. Physician Response: Physician Response Pyelonephritis If you have questions please contact: Blood Donor Recruiter Supervisor: Ext: Thank you for your time and cooperation. Clinical Reprographics Associate/Blood Donor Recruiter Supervisor This is a permanent part of the medical record JOAN CALVERT Feb 21, 2016 13:29 GEOVANNY HERNANDEZ DO Feb 22, 2016 13:11
[2016-02-28] MEDS ORDERED: fentaNYL INJECTION 100 MCG/2 ML AMP IVP ONE (08:00)
== END 2016-02-20 12:27 | disposition home or self-care (01) | DRG 694 ==
LOC: EDUNIT# 12:33 → ER 12:35 → 4TH 15:45
PROVIDERS: ADMIT Internal Medicine; ATTEND Internal Medicine
DX: N20.0 Calculus of kidney (principal); N20.1 Calculus of ureter; N12 Tubulo-interstitial nephritis, not specified as acute or chronic; N23 Unspecified renal colic; K59.00 Constipation, unspecified; E78.5 Hyperlipidemia, unspecified; K21.9 Gastro-esophageal reflux disease without esophagitis; I10 Essential (primary) hypertension; M19.90 Unspecified osteoarthritis, unspecified site; E11.9 Type 2 diabetes mellitus without complications; Z88.8 Allergy status to other drugs, medicaments and biological substances
CPT/HCPCS: 36415; 74000; 74176; 80053; 81000; 83690; 85007; 85025; 85027; 96361; 96365; 96375

== ENCOUNTER → 2016-02-23 | Outpatient (CLI) | payer MEDICARE, OTHER ==
[~2016-02-23] MED LIST: AMOX-355 PO; ASPI-983 PO; CHOL20003 PO; CIPR-225 PO; CYAN500T2 PO; DICL100G18 TOP; DILT240C47 PO; DILT240C87 PO; FLUT16SP22 NS; HYDR-3812 PO; HYDR-3876 PO; LACT20SO2 PO; LOSA1TAB70 PO; MECL-106 PO; MELO15TA39 PO; METF500T4 PO; MONT10TA24 PO; NAPR500T PO; NITR-68 PO; OMEP20CA12 PO; OMG1KC PO; PHEN-640 PO; PROP1DRO4 OU; SIMV20TA3 PO; SODI14.12 TP; SODI1PAC NS; TAMS0.4C98 PO; TOLT2TAB5 PO
--- OUTSIDE RECORDS SUMMARY | 2016-02-23 09:56 | XMS REPORT | Continuity of Care Document ---
Author Author [facility] Organization [facility] Address Unknown Phone Unavailable Care Team Providers Care Plastic Die Maker Apprentice Name Role Phone Unknown, Unknown PCP Unavailable Source Comments Some departments are not documenting in the electronic medical record. If you do not see the information that you expected, contact Release of Information in the Health Information Management department at [phone] for further assistance in locating additional records.[facility] Active Allergies and Adverse Reactions Allergen [...] by mouth daily. Active SIMON/C/LATONYA (GLUCOSAM SIMON QJO-[id number]-Z-MN PO) MULTIVITAMIN PO Take by mouth daily. 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
--- NOTE | 2016-02-23 13:09 | Diagnostic Imaging Report ---
KUB. INDICATION: Follow-up right kidney stone. COMPARISON: 02/20/2016. FINDINGS: There is a 4 mm right flank calcification and calcification in the left flank measuring also 4 mm suggestive of bilateral kidney stones which appear to correlate with CT findings from 02/20/2016. Pelvic calcifications are likely related to phleboliths. IMPRESSION: Bilateral 4 mm flank calcifications suggestive of kidney stones. Dictated by: Dictated on workstation # [id number]
== END ==
LOC: RAD 09:52
PROVIDERS: ATTEND Internal Medicine
DX: N20.1 Calculus of ureter (principal)
CPT/HCPCS: 74000

== ENCOUNTER 2016-02-24 05:39 | Outpatient (CLI) | payer MEDICARE, OTHER ==
[~2016-02-24] VITALS: Ht 180.3 cm; Wt 117.1 kg
[~2016-02-24 05:39] MED LIST changes: -CIPR-225 PO; -HYDR-3876 PO; -NITR-68 PO; -PHEN-640 PO
--- OUTSIDE RECORDS SUMMARY | 2016-02-24 05:43 | XMS REPORT | Continuity of Care Document ---
Author Author [facility] Organization [facility] Address Unknown Phone Unavailable Care Team Providers Care Decorating Machine Operator Name Role Phone Unknown, Unknown PCP Unavailable Source Comments Some departments are not documenting in the electronic medical record. If you do not see the information that you expected, contact Release of Information in the Health Information Management department at [phone] for further assistance in locating additional records.[facility] Active Allergies and Adverse Reactions Allergen [...] by mouth daily. Active SIMON/C/LATONYA (GLUCOSAM SIMON JOG-[id number]-B-MN PO) MULTIVITAMIN PO Take by mouth daily. 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
== END 2016-02-24 12:02 ==
LOC: PREOP 05:39
PROVIDERS: ATTEND Urology
DX: Z01.818 Encounter for other preprocedural examination (principal); N20.1 Calculus of ureter; N20.0 Calculus of kidney; Z79.82 Long term (current) use of aspirin

== ENCOUNTER 2016-02-28 06:58 | Day surgery (SDC) | payer MEDICARE, OTHER ==
[~2016-02-28] VITALS: Ht 180.3 cm; Wt 117.1 kg
--- OUTSIDE RECORDS SUMMARY | 2016-02-28 07:01 | XMS REPORT | Continuity of Care Document ---
Author Author [facility] Organization [facility] Address Unknown Phone Unavailable Care Team Providers Care Carpet Cutter Name Role Phone Unknown, Unknown PCP Unavailable Source Comments Some departments are not documenting in the electronic medical record. If you do not see the information that you expected, contact Release of Information in the Health Information Management department at [phone] for further assistance in locating additional records.[facility] Active Allergies and Adverse Reactions Allergen [...] by mouth daily. Active SIMON/C/LATONYA (GLUCOSAM SIMON QIJ-MHBJWYHWF-Q-MN PO) MULTIVITAMIN PO Take by mouth daily. 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
--- OUTSIDE RECORDS SUMMARY | 2016-02-28 07:02 | XMS REPORT | Continuity of Care Document ---
Author Author [facility] Organization [facility] Address Unknown Phone Unavailable Care Team Providers Care Brown Sourer Name Role Phone Unknown, Unknown PCP Unavailable Source Comments Some departments are not documenting in the electronic medical record. If you do not see the information that you expected, contact Release of Information in the Health Information Management department at [phone] for further assistance in locating additional records.[facility] Active Allergies and Adverse Reactions Allergen Noted [...] by mouth daily. Active SIMON/C/LATONYA (GLUCOSAM SIMON JTV-QCAPAQBOI-A-MN PO) MULTIVITAMIN PO Take by mouth daily. 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
[2016-02-28 07:03] VITALS: BP 147/98
--- NOTE | 2016-02-28 07:20 | Progress Note-Pre Operative ---
Pre-Operative Progress Note H&P Reviewed The H&P was reviewed, patient examined and no changes noted. Date H&P Reviewed: Feb 28, 2016 Time H&P Reviewed: 07:19 Pre-Operative Diagnosis: Rt ureteral and bilateral renal stones CESAR ROSENBAUM MD Feb 28, 2016 7:20 am
[2016-02-28] MEDS ORDERED: cefTRIAXone 1 GM/NS 50 ML IVPB IV ONE ×2 (07:45)
[2016-02-28] MEDS ORDERED: CATHETER FLUSH 10 ML SYR IV PRN (07:45)
[2016-02-28] MEDS ORDERED: ONDANSETRON 4 MG/2 ML (SDV) Z0FRAN IV ONE (08:00)
[2016-02-28] MEDS ORDERED: FAMOTIDINE 20MG/2ML IV (PEPCID) IV ONE (08:00)
[2016-02-28] MEDS: LACTATED RINGERS 1,000 ML IV PRN ×2 (08:12→09:41)
[2016-02-28] MEDS ORDERED: fentaNYL INJECTION 100 MCG/2 ML AMP IV ONE (08:15)
--- NOTE | 2016-02-28 08:36 | Progress Note-Post Operative ---
Post-Operative Progess Note Pre-Operative Diagnosis Rt ureteral and bilateral renal stones Post-Operative Diagnosis same urethral stricture Post-Op Procedure Note Date of Procedure: Feb 28, 2016 Name of Procedure: cysto, Rt ureteroscopy, with stone lithotripsy, and Rt ESWL Anesthesia Type general CESAR ROSENBAUM MD Feb 28, 2016 8:36 am
[2016-02-28] MEDS ORDERED: proPOfol 200 MG/20 ML (DIPRIVAN) VIAL IV ONE (08:42)
[2016-02-28] MEDS ORDERED: MIDAZOLAM 2 MG/2 ML (VERSED) VIAL ONE (08:42)
[2016-02-28] MEDS ORDERED: fentaNYL INJECTION 100 MCG/2 ML AMP ONE (08:42)
[2016-02-28] MEDS ORDERED: SEVOFLURANE (ULTANE) 15 ML INHAL SOLN ONE (08:51)
[2016-02-28] MEDS ORDERED: LACTATED RINGERS 1,000 ML IV ONE (08:51)
[2016-02-28] MEDS ORDERED: ROCURONIUM 50 MG/5 ML (ZEMURON) VIAL IV ONE (08:51)
[2016-02-28] MEDS ORDERED: KETOROLAC 30 MG/ML VIAL ONE (08:53)
[2016-02-28] MEDS ORDERED: FUROSEMIDE 40 MG/4 ML INJ (LASIX) ONE (08:53)
[2016-02-28] MEDS ORDERED: LIDOCAINE PF 2% 10 ML (XYLOCAINE) AMP ONE (08:53)
[2016-02-28] MEDS ORDERED: ONDANSETRON 4 MG/2 ML (SDV) Z0FRAN ONE (08:53)
[2016-02-28] MEDS ORDERED: DEXAMETHASONE PF 10 MG/ML (DECADRON) VIAL ONE (08:53)
--- NOTE | 2016-02-28 08:57 | Diagnostic Imaging Report ---
KUB. INDICATION: Bilateral stones. COMPARISON: 02/23/2016. FINDINGS: Again seen bilateral flank calcifications measuring 5 mm on the right and 4 mm on the left, probably related to kidney stones. There is a few-millimeter calcification, left side of the pelvis, probably phlebolith. Unremarkable bowel gas pattern is seen with small amounts of fecal material in the colon noted. IMPRESSION: Bilateral flank calcifications may relate to kidney stones. Dictated by: Dictated on workstation # [id number]
--- NOTE | 2016-02-28 09:34 | Discharge Inst-Urology ---
Discharge Inst-Urology Discharge Medications New, Converted, or Re-newed RX: RX on Chart Patient Instructions/Follow Up Plan Please make appointment to been seen in office Thursday 03/02, KUB prior to it KUB on way home Post ESWL instructions Increase oral fluids for 48 hours and then as needed. Diet and Activity as tolerated. If questions or concerns contact your physician Or seek help at emergency department. Other Inst to Patient stay off ASA CESAR ROSENBAUM MD Feb 28, 2016 9:34 am
[2016-02-28] MEDS ORDERED: morphine INJ 10 MG/ML 1ML (SYR OR VIAL) ONE (10:07)
[2016-02-28] MEDS ORDERED: PROMETHAZINE INJ 25 MG/ML (PHENERGAN) AMP IV PRN (10:15)
[2016-02-28] MEDS ORDERED: morphine INJ 10 MG/ML 1ML (SYR OR VIAL) IV PRN (10:15)
[2016-02-28] MEDS ORDERED: ONDANSETRON 4 MG/2 ML (SDV) Z0FRAN IV PRN (10:15)
[2016-02-28] MEDS ORDERED: LABETALOL HCL 20 MG/4 ML VIAL ONE (10:20)
[2016-02-28] MEDS ORDERED: LABETALOL HCL 20 MG/4 ML VIAL IV ONE (10:30)
--- NOTE | 2016-02-28 10:41 | OPERATIVE REPORT ---
PROCEDURE PHYSICIAN: CESAR ROSENBAUM DATE OF PROCEDURE: 02/28/2016 PREOPERATIVE DIAGNOSIS: 1. Left ureteral stone. 2. Bilateral renal stones. POSTOPERATIVE DIAGNOSIS: 1. Left ureteral stone. 2. Bilateral renal stones. 3. Urethral stricture. OPERATION: 1. Cystoscopy. 2. Right ureteroscopy with stone lithotripsy. 3. Right ESWL. SURGEON: Jena. ANESTHESIA: General. COMPLICATIONS: None. PROCEDURE: Under satisfactory general anesthesia, the patient in lithotomy position, the genitalia were prepped and draped in the usual sterile fashion. A 23-Mauritanian cystoscope was introduced under vision. There was a mild sub meatal stricture responding to the scope. Anterior urethra was normal. There was urethral stricture just distal to the sphincter. I was able to dilated it with the scope and bypass it. The prostate showed some enlargement of the lateral lobe meeting in the midline, causing bladder neck obstruction. Bladder revealed some trabeculations. Ureteric orifice is normal in shape, site and configuration with clear efflux, sluggish on the right side. Using the Foroblique lens, I dilated the right ureteral orifice, intramural portion to accommodate a 6.9-Mauritanian semirigid ureteroscope. I visualized the stone, broke it up with lithoclast. The fragments fell into the bladder. I went beyond that to the proximal ureteral stone up and down to make sure there were no more fragments or stones. I removed the ureteroscope, reinserted the cystoscope to empty the bladder, moved the patient to the ESWL table lying supine. The right renal stone was localized. Shocks were delivered KV of 5. A total of 2000 shocks completely fragmented the stone. The patient received 40 mg of Lasix. We did not give him any Toradol because of his allergy to ibuprofen. He tolerated the procedure and anesthesia well and was sent to recovery room in stable condition. PLAN: Left ESWL in 2 weeks. Job ID: [id number] Dictated Date: 02/28/2016 09:46:14 Demurrage Clerk Date: 02/28/2016 10:34:45 / asuncion
[2016-02-28 10:55] VITALS: BP 164/106
[2016-02-28] MEDS ORDERED: PHENAZOPYRIDINE 100 MG (PYRIDIUM) TABLET ONE (11:11)
[2016-02-28] MEDS ORDERED: PHENAZOPYRIDINE 100 MG (PYRIDIUM) TABLET PO ONE (11:15)
[2016-02-28 11:30] VITALS: BP 169/101
[2016-02-28 12:00] VITALS: BP 131/100
[2016-02-28] MEDS ORDERED: CIPR-225 PO (12:03)
[2016-02-28] MEDS ORDERED: PHEN-640 PO (12:03)
[2016-02-28] MEDS ORDERED: TAMS0.4C98 PO (12:45)
[2016-02-28] MEDS ORDERED: HYDR-3876 PO (12:46)
--- NOTE | 2016-02-28 13:08 | Diagnostic Imaging Report ---
KUB. INDICATION: Post lithotripsy. FINDINGS: The previously seen bilateral flank calcifications are not well visualized on this exam. IMPRESSION: No definitive stone identified. Dictated by: Dictated on workstation # [id number]
[2016-02-28 13:25] VITALS: BP 131/100
== END 2016-02-28 13:25 | disposition home or self-care (01) ==
LOC: SDC 06:58
PROVIDERS: ATTEND Urology
DX: N20.1 Calculus of ureter (principal); N20.0 Calculus of kidney; N35.9 Urethral stricture, unspecified; Z11.2 Encounter for screening for other bacterial diseases
CPT/HCPCS: 74000; 85002; 87081

== ENCOUNTER → 2016-03-12 | Outpatient (CLI) | payer MEDICARE, OTHER ==
[~2016-03-12] MED LIST changes: +CIPR-225 PO; +HYDR-3876 PO; +NITR-68 PO; +PHEN-640 PO
--- OUTSIDE RECORDS SUMMARY | 2016-03-12 13:24 | XMS REPORT | Continuity of Care Document ---
Author Author [facility] Organization [facility] Address Unknown Phone Unavailable Care Team Providers Care Aircraft Part Assembler Name Role Phone Unknown, Unknown PCP Unavailable Source Comments Some departments are not documenting in the electronic medical record. If you do not see the information that you expected, contact Release of Information in the Health Information Management department at [phone] for further assistance in locating additional records.[facility] Active Allergies and Adverse Reactions [...] by mouth daily. Active SIMON/C/LATONYA (GLUCOSAM SIMON TWQ-[id number]-K-MN PO) MULTIVITAMIN PO Take by mouth daily. Active acetaminophen (TYLENOL) Take 1,000 mg by mouth as Active 500 mg tablet Needed. guaiFENesin LA (MUCINEX) Take 600 mg by mouth as Active 600 mg tablet Needed. metFORMIN (GLUCOPHAGE) Take 500 mg by mouth Active 500 mg tablet twice daily with meals. diltiazem SA (+) (TIAZAC) Take 240 mg by mouth Active 240 mg capsule daily. cycloSPORINE (RESTASIS) Place 1 Drop into or Active 0.05 % ophthalmic around eye(s) twice emulsion daily. fluoruracil (CARAC) 0.5 % Apply to affected [...] and take 1 week off every month clindamycin (CLEOCIN T; Apply topically to 60 mL 3 03/07/19 Active CLINDA-DERM) 1 % topical affected area twice 17 solution daily. to scalp bumps twice daily ketoconazole (NIZORAL) 2 Apply topically to 120 mL 3 03/07/19 Active % topical shampoo affected area three times 17 weekly. naproxen (NAPROSYN) 500 Take 500 mg by mouth 03/07/19 Discontin mg tablet twice daily with meals. 17 ued clindamycin (CLEOCIN T; Apply to affected area 60 mL 3 10/20/19 Discontin CLINDA-DERM) 1 % topical twice daily. to scalp 15 17 ued solution bumps twice daily Active Problems Problem Noted Date Epiphora 03/22/2011 Overview: Chronically watery eyes. No specific trigger or seasonal component. Has tried OTC antihistamines drops without control. Minimal change since last visit despite interval blepharoplasty. L ast Assessment & Plan: Allergic conjunctivitis vs dry eyes. Recommend follow up with ophthalmology for dry eye test. Continue allergy medical management. 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 Unspecified essential hypertension Overview: 01/03/2010 Most Recent Encounters Date Type Specialty Providers Description 03/09/2016 Documentation Dermatology Mariely Pérez MD 03/07/2016 [facility] Mariely Pérez Neoplasm of uncertain Encounter behavior of skin 03/07/2016 Office Visit Dermatology Moreno Mcgowan MD History of basal cell carcinoma (Primary Dx); AK (actinic keratosis); Benign neoplasm of skin, unspecified location; Folliculitis; Seborrheic keratosis; Neoplasm of uncertain behavior of skin Social History Tobacco Use Types Packs/Day Years Used Date Never Smoker Smokeless Tobacco: Never Used Alcohol Use Drinks/Week oz/Week Comments No Last Filed Vital Signs Vital Sign Reading Time Taken Blood Pressure 124/83 09/13/2015 11:40 AM CDT Pulse 76 09/13/2015 11:40 AM CDT Temperature - - Respiratory Rate - - Height 1.803 m (5' 11") 03/07/2016 10:53 AM FACILITY PRACTICE SPECIALIST Weight 117.482 kg (259 lb) 03/07/2016 10:53 AM FACILITY PRACTICE SPECIALIST Body Mass Index 36.14 03/07/2016 10:53 AM FACILITY PRACTICE SPECIALIST Oxygen Saturation - - Plan of Care Date Type Specialty Providers Description 08/29/2016 Appointment Dermatology Mariely Pérez MD [address] [place] [address] [phone] (Fax) 08/29/2016 Appointment Otolaryngology Thad Abreu MD [address] [facility] [address] [place] [address] [phone] (Fax) Health Maintenance Due Date Last Done Comments Hepatitis C Screening 1945 Physical (Comprehensive) 1952 Exam Pertussis Vaccine 1956 Tetanus Vaccine 1962 Colorectal Cancer 06/04/1995 Screening Shingles Vaccine 2005 Prevnar/Pneumovax (#1) 2010 Influenza Vaccine 10/13/2015 Results from Last 3 Months SURGICAL PATHOLOGY (03/07/2016 11:48 AM) Component Value Range PATHOLOGY REPORT [facility] [email or web address] Kathrin Jean MD, PhD, Director of Anatomic Pathology Department of Pathology and Laboratory Medicine [address] [place] [address] Surgical Pathology Office: [phone] SURGICAL PATHOLOGY REPORT NAME: TATO VALENCIA SURG PATH #: [id number] MR #: [id number] SPECIMEN CLASS: SR BILLING #: [id number] ALT ID #: LOCATION: DERM DATE OF PROCEDURE: 03/07/2016 AGE: 70 SEX: M DATE RECEIVED: 03/07/2016 : 1945 TIME RECEIVED: 11:48 PHYSICIAN: MARIELY PÉREZ MD DATE OF REPORT: 03/08/2016 COPY TO: MORENO MCGOWAN DATE OF PRINTIN03/08/2016 ################################################## ###################### Final Diagnosis: A. Right upper back: -- Nodular basal cell carcinoma, transected Attestation: By this signature, I attest that I have personally formulated the final interpretation expressed in this report and that the above diagnosis is based upon my examination of the slides and/or other material indicated in this report. +++Electronically Signed Out By+++ gf/03/08/2016 Interpreted by: rBaxton Jean Baptiste MD, Attending Physician 03/08/2016 ################################################## ###################### Material Received: A: right upper back History: A. BCC >ISK Gross Description: A. Labeled "right upper back" is a 1.1 x 0.9 x 0.1 cm shave, trisected, all in A1. (jdn) jdn2/03/07/2016 SKIN LESION DESTRUCTION (03/07/2016 11:09 AM)SKIN BIOPSY/EXCISION OF SKIN LESION (03/07/2016 11:08 AM)
--- NOTE | 2016-03-12 14:20 | Diagnostic Imaging Report ---
INDICATION: Nephrolithiasis. EXAMINATION: KUB at 1:46 PM. FINDINGS: There is a punctate calcification projecting over the left renal pelvis. This measures about 2 mm in diameter. There is a medication tablet in the right side of the abdomen. IMPRESSION: Suspected tiny calculus in the left kidney. Dictated by: Dictated on workstation # [id number]
== END ==
LOC: RAD 13:19
PROVIDERS: ATTEND Urology
DX: N20.0 Calculus of kidney (principal); Z98.890 Other specified postprocedural states
CPT/HCPCS: 74000

== ENCOUNTER 2016-03-13 12:04 | Outpatient (CLI) | payer MEDICARE, OTHER ==
[~2016-03-13] VITALS: Ht 180.3 cm; Wt 117.1 kg
[~2016-03-13 12:04] MED LIST changes: -NITR-68 PO
--- OUTSIDE RECORDS SUMMARY | 2016-03-13 12:09 | XMS REPORT | Continuity of Care Document ---
Author Author [facility] Organization [facility] Address Unknown Phone Unavailable Care Team Providers Care Taxi Driver Name Role Phone Unknown, Unknown PCP Unavailable Source Comments Some departments are not documenting in the electronic medical record. If you do not see the information that you expected, contact Release of Information in the Health Information Management department at [phone] for further assistance in locating additional records.[facility] Active Allergies and Adverse Reactions [...] by mouth daily. Active SIMON/C/LATONYA (GLUCOSAM SIMON TOW-[id number]-J-MN PO) MULTIVITAMIN PO Take by mouth daily. 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 Currently mostly asymptomatic. Overall still feels fairly well controlled from an allergy standpoint. Has frequent watery eyes, but otherwise minimal sinonasal allergy symptoms. Seeing Dr. Abreu later today. L ast Assessment & Plan: Continue current medical management. Again briefly reviewed immunotherapy as an option, but Mr. aVlencia is not interested at this time. Unspecified essential hypertension Overview: 01/03/2010 Most Recent Encounters Date Type Specialty Providers Description 03/09/2016 Documentation Dermatology Mariely Pérez MD 03/07/2016 [facility] Mariely Pérez Neoplasm of uncertain [...] 1.803 m (5' 11") 03/07/2016 10:53 AM SAFETY SPECIALIST Weight 117.482 kg (259 lb) 03/07/2016 10:53 AM SAFETY SPECIALIST Body Mass Index 36.14 03/07/2016 10:53 AM SAFETY SPECIALIST Oxygen Saturation - - Plan of Care Date Type Specialty Providers Description 08/29/2016 Appointment Dermatology Mariely Pérez MD [address] [employer] [address] [place] [address] [phone] (Fax) 08/29/2016 Appointment Otolaryngology Thad Abreu MD [address] [facility] [address] [place] [address] [phone] (Fax) Health Maintenance Due Date Last Done Comments Hepatitis C Screening 1945 Physical (Comprehensive) 1952 Exam Pertussis Vaccine 1956 Tetanus Vaccine 1962 Colorectal Cancer 06/04/1995 Screening Shingles Vaccine 2005 Prevnar/Pneumovax (#1) 2010 Influenza Vaccine 10/13/2015 Results from Last 3 Months SURGICAL PATHOLOGY (03/07/2016 11:48 AM) Component Value Range PATHOLOGY REPORT [facility] [email or web address] Kathrin Jean MD, PhD, Director of Anatomic Pathology Department of Pathology and Laboratory Medicine [address] [place] [address] Surgical Pathology Office: [phone] SURGICAL PATHOLOGY REPORT NAME: TATO VALENCIA SURG PATH #: [id number] MR #: [id number] SPECIMEN CLASS: SR BILLING #: [id number] ALT ID #: LOCATION: DERM DATE OF [...] +++Electronically Signed Out By+++ gf/03/08/2016 Interpreted by: Braxton Jean Baptiste MD, Attending Physician 03/08/2016 ################################################## ###################### Material Received: A: right upper back History: A. BCC >ISK Gross Description: A. Labeled "right upper back" is a 1.1 x 0.9 x 0.1 cm shave, trisected, all in A1. (jdn) jdn2/03/07/2016 SKIN LESION DESTRUCTION (03/07/2016 11:09 AM)SKIN BIOPSY/EXCISION OF SKIN LESION (03/07/2016 11:08 AM)
[2016-03-14] MEDS ORDERED: NITR-68 PO (09:31)
== END 2016-03-13 12:24 ==
LOC: PREOP 12:04
PROVIDERS: ATTEND Urology
DX: Z01.818 Encounter for other preprocedural examination (principal); N20.0 Calculus of kidney

== ENCOUNTER 2016-03-14 05:52 | Day surgery (SDC) | payer MEDICARE, OTHER ==
[~2016-03-14] VITALS: Ht 180.3 cm; Wt 117.1 kg
--- OUTSIDE RECORDS SUMMARY | 2016-03-14 05:55 | XMS REPORT | Continuity of Care Document ---
Author Author [facility] Organization [facility] Address Unknown Phone Unavailable Care Team Providers Care Coal Mill Operator Name Role Phone Unknown, Unknown PCP Unavailable Source Comments Some departments are not documenting in the electronic medical record. If you do not see the information that you expected, contact Release of Information in the Health Information Management department at [phone] for further assistance in locating additional records.[facility] Active Allergies and Adverse Reactions Allergen Noted [...] by mouth daily. Active SIMON/C/LATONYA (GLUCOSAM SIMON BGJ-[id number]-O-MN PO) MULTIVITAMIN PO Take by mouth daily. 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 Other chronic sinusitis Overview: 01/03/2010 Allergic [...] 03/09/2016 Documentation Dermatology Mariely Pérez MD 03/07/2016 [facility] Mariely Pérez Neoplasm of uncertain Encounter behavior [...] 1.803 m (5' 11") 03/07/2016 10:53 AM PLACEMENT DIRECTOR Weight 117.482 kg (259 lb) 03/07/2016 10:53 AM PLACEMENT DIRECTOR Body Mass Index 36.14 03/07/2016 10:53 AM PLACEMENT DIRECTOR Oxygen Saturation - - Plan of Care Date Type Specialty Providers Description 08/29/2016 Appointment Dermatology Mariely Pérez MD [address] [employer] [address] [place] [address] [phone] (Fax) 08/29/2016 Appointment Otolaryngology Thad Abreu MD [address] [facility] [address] [place] [address] [phone] (Fax) Health Maintenance Due Date Last Done Comments Hepatitis C Screening 1945 Physical (Comprehensive) 1952 Exam Pertussis Vaccine 1956 Tetanus Vaccine 1962 Colorectal Cancer 06/04/1995 Screening Shingles Vaccine 2005 Prevnar/Pneumovax (#1) 2010 Influenza Vaccine 10/13/2015 Results from Last 3 Months SURGICAL PATHOLOGY (03/07/2016 11:48 AM) Component Value Range PATHOLOGY REPORT [facility] [email or web address] Kathrin Jean MD, PhD, Director of Anatomic Pathology Department of Pathology and Laboratory Medicine [address] [place] [address] Surgical Pathology Office: [phone] SURGICAL PATHOLOGY REPORT NAME: TATO VALENCIA SURG PATH #: [id number] MR #: [id number] SPECIMEN CLASS: SR BILLING #: [id number] ALT ID #: LOCATION: DERM DATE OF [...]
--- OUTSIDE RECORDS SUMMARY | 2016-03-14 05:55 | XMS REPORT | Continuity of Care Document ---
Author Author [facility] Organization [facility] Address Unknown Phone Unavailable Care Team Providers Care Habilitative Interventionist Name Role Phone Unknown, Unknown PCP Unavailable Source Comments Some departments are not documenting in the electronic medical record. If you do not see the information that you expected, contact Release of Information in the Health Information Management department at [phone] for further assistance in locating additional records.[facility] Active Allergies and Adverse Reactions Allergen [...] by mouth daily. Active SIMON/C/LATONYA (GLUCOSAM SIMON QWL-[id number]-S-MN PO) MULTIVITAMIN PO Take by mouth daily. 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 Other chronic sinusitis Overview: 01/03/2010 Allergic [...] 03/09/2016 Documentation Dermatology Mariely Pérez MD 03/07/2016 [facility] Mariely Pérez Neoplasm of uncertain Encounter behavior [...] 1.803 m (5' 11") 03/07/2016 10:53 AM ACCREDITATION COORDINATOR Weight 117.482 kg (259 lb) 03/07/2016 10:53 AM ACCREDITATION COORDINATOR Body Mass Index 36.14 03/07/2016 10:53 AM ACCREDITATION COORDINATOR Oxygen Saturation - - Plan of Care Date Type Specialty Providers Description 08/29/2016 Appointment Dermatology Mariely Pérez MD [address] [employer] [address] [place] [address] [phone] (Fax) 08/29/2016 Appointment Otolaryngology Thad Abreu MD [address] [facility] [address] [place] [address] [phone] (Fax) Health Maintenance Due Date Last Done Comments Hepatitis C Screening 1945 Physical (Comprehensive) 1952 Exam Pertussis Vaccine 1956 Tetanus Vaccine 1962 Colorectal Cancer 06/04/1995 Screening Shingles Vaccine 2005 Prevnar/Pneumovax (#1) 2010 Influenza Vaccine 10/13/2015 Results from Last 3 Months SURGICAL PATHOLOGY (03/07/2016 11:48 AM) Component Value Range PATHOLOGY REPORT [facility] [email or web address] Kathrin Jean MD, PhD, Director of Anatomic Pathology Department of Pathology and Laboratory Medicine [address] [place] [address] Surgical Pathology Office: [phone] SURGICAL PATHOLOGY REPORT NAME: TATO VALENCIA SURG PATH #: [id number] MR #: [id number] SPECIMEN CLASS: SR BILLING #: [id number] ALT ID #: LOCATION: DERM DATE OF [...]
[2016-03-14 06:25] VITALS: BP 144/95
[2016-03-14] MEDS ORDERED: cefTRIAXone 1 GM (ROCEPHIN) VIAL ONE (06:55)
[2016-03-14] MEDS ORDERED: MIDAZOLAM 2 MG/2 ML (VERSED) VIAL ONE (06:55)
[2016-03-14] MEDS ORDERED: proPOfol 200 MG/20 ML (DIPRIVAN) VIAL IV ONE (06:55)
[2016-03-14] MEDS ORDERED: LIDOCAINE PF 2% 10 ML (XYLOCAINE) AMP ONE (06:55)
[2016-03-14] MEDS ORDERED: NORMAL SALINE (BAXTER MINI) 50 ML IV ONE (06:55)
[2016-03-14] MEDS ORDERED: KETOROLAC 30 MG/ML VIAL ONE (06:58)
[2016-03-14] MEDS ORDERED: FUROSEMIDE 40 MG/4 ML INJ (LASIX) ONE (06:58)
[2016-03-14] MEDS ORDERED: fentaNYL INJECTION 100 MCG/2 ML AMP IV ONE (07:00)
[2016-03-14] MEDS ORDERED: ONDANSETRON 4 MG/2 ML (SDV) Z0FRAN IV ONE (07:00)
[2016-03-14] MEDS: LACTATED RINGERS 1,000 ML IV PRN ×2 (07:00→08:38)
[2016-03-14] MEDS ORDERED: FAMOTIDINE 20MG/2ML IV (PEPCID) IV ONE (07:00)
--- NOTE | 2016-03-14 07:03 | Progress Note-Pre Operative ---
Pre-Operative Progress Note H&P Reviewed The H&P was reviewed, patient examined and no changes noted. Date H&P Reviewed: Mar 14, 2016 Time H&P Reviewed: 07:03 Pre-Operative Diagnosis: Lt renal stone CESAR ROSENBAUM MD Mar 14, 2016 7:03 am
[2016-03-14] MEDS ORDERED: cefTRIAXone 1 GM/NS 50 ML IVPB IV ONE ×2 (07:30)
[2016-03-14] MEDS ORDERED: CATHETER FLUSH 10 ML SYR IV PRN (07:30)
--- NOTE | 2016-03-14 07:42 | Discharge Inst-Urology ---
Discharge Inst-Urology Discharge Medications New, Converted, or Re-newed RX: RX on Chart Patient Instructions/Follow Up Plan Please make appointment to been seen in office in 2 weeks. KUB prior to it KUB on way home Post ESWL instructions Increase oral fluids for 48 hours and then as needed. Diet and Activity as tolerated. If questions or concerns contact your physician Or seek help at emergency department. CESAR ROSENBAUM MD Mar 14, 2016 7:42 am
--- NOTE | 2016-03-14 07:42 | Progress Note-Post Operative ---
Post-Operative Progess Note Pre-Operative Diagnosis Lt renal stone Post-Operative Diagnosis same Post-Op Procedure Note Date of Procedure: Mar 14, 2016 Name of Procedure: LT ESWL Anesthesia Type general CESAR ROSENBAUM MD Mar 14, 2016 7:42 am
--- NOTE | 2016-03-14 08:12 | Diagnostic Imaging Report ---
EXAMINATION: KUB. INDICATION: Lithotripsy for left-sided stones. COMPARISON: 03/12/16. FINDINGS: No definitive stone is identified. There is a small amount of fecal material in the colon seen. IMPRESSION: No definitive stone seen. Dictated by: Dictated on workstation # [id number]
[2016-03-14] MEDS ORDERED: SEVOFLURANE (ULTANE) 15 ML INHAL SOLN ONE (08:18)
[2016-03-14] MEDS ORDERED: LACTATED RINGERS 1,000 ML IV ONE (08:18)
[2016-03-14] MEDS ORDERED: MEPERIDINE (DEMEROL) INJ 50 MG/ML IVP PRN (08:30)
[2016-03-14] MEDS ORDERED: morphine INJ 10 MG/ML 1ML (SYR OR VIAL) IVP PRN (08:30)
[2016-03-14 09:15] VITALS: BP 127/89
[2016-03-14] MEDS ORDERED: NITR-68 PO (09:31)
[2016-03-14 09:45] VITALS: BP 143/93
[2016-03-14 10:15] VITALS: BP 143/91
--- NOTE | 2016-03-14 11:22 | Diagnostic Imaging Report ---
INDICATION: Nephrolithiasis EXAMINATION: KUB at 10:43 AM Bowel gas pattern is normal. There are no pathologic masses or calcifications seen. IMPRESSION: Negative abdomen. Dictated by: Dictated on workstation # [id number]
--- NOTE | 2016-03-14 14:33 | OPERATIVE REPORT ---
PROCEDURE PHYSICIAN: CESAR ROSENBAUM DATE OF PROCEDURE: 03/14/2016 PREOPERATIVE DIAGNOSIS: Left renal stone. POSTOPERATIVE DIAGNOSIS: Left renal stone. OPERATION PERFORMED: Left ESWL. SURGEON: Jena. ANESTHESIA: General. COMPLICATIONS: None. PROCEDURE: Under satisfactory general anesthesia, the patient supine position, on the ESWL table, the left renal stone was localized with some difficulty because of the size of the stone and the size of the patient, however, it was obvious and we delivered total of 2500 shocks and could not see the stone anymore. The patient received 40 mg of Lasix and 15 mg of Toradol IV at the end of the procedure. He tolerated the procedure and anesthesia well and was sent to recovery room in stable condition. Job ID: [id number] Dictated Date: 03/14/2016 07:57:40 Electrical Tests Supervisor Date: 03/14/2016 14:30:25 / asuncion
== END 2016-03-14 10:37 | disposition home or self-care (01) ==
LOC: SDC 05:52
PROVIDERS: ATTEND Urology
DX: N20.0 Calculus of kidney (principal); Z11.2 Encounter for screening for other bacterial diseases; R73.03 Prediabetes
CPT/HCPCS: 74000; 82962; 87081

== ENCOUNTER → 2016-03-28 | Outpatient (CLI) | payer MEDICARE, OTHER ==
[~2016-03-28] MED LIST changes: +NITR-68 PO
--- OUTSIDE RECORDS SUMMARY | 2016-03-28 12:54 | XMS REPORT | Continuity of Care Document ---
Author Author [facility] Organization [facility] Address Unknown Phone Unavailable Care Team Providers Care Hand Crocheter Name Role Phone Unknown, Unknown PCP Unavailable Source Comments Some departments are not documenting in the electronic medical record. If you do not see the information that you expected, contact Release of Information in the Health Information Management department at [phone] for further assistance in locating additional records.[facility] Active Allergies and Adverse Reactions Allergen [...] by mouth daily. Active SIMON/C/LATONYA (GLUCOSAM SIMON [id number]-[id number]-T-MN PO) MULTIVITAMIN PO Take by mouth daily. 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 Other chronic sinusitis Overview: 01/03/2010 Allergic [...] Type Specialty Providers Description 03/09/2016 Documentation Dermatology aMriely Pérez MD 03/07/2016 [facility] Mariely Pérez Neoplasm of uncertain Encounter [...] 1.803 m (5' 11") 03/07/2016 10:53 AM INSTRUMENT CALIBRATOR Weight 117.482 kg (259 lb) 03/07/2016 10:53 AM INSTRUMENT CALIBRATOR Body Mass Index 36.14 03/07/2016 10:53 AM INSTRUMENT CALIBRATOR Oxygen Saturation - - Plan of Care Date Type Specialty Providers Description 08/29/2016 Appointment Dermatology Mariely Pérez MD [address] [employer] [address] [place] [address] [phone] (Fax) 08/29/2016 Appointment Otolaryngology Tahd Abreu MD [address] [facility] [address] [place] [address] [phone] (Fax) Health Maintenance Due Date Last Done Comments Hepatitis C Screening 1945 Physical (Comprehensive) 1952 Exam Pertussis Vaccine 1956 Tetanus Vaccine 1962 Colorectal Cancer 06/04/1995 Screening Shingles Vaccine 2005 Prevnar/Pneumovax (#1) 2010 Influenza Vaccine 10/13/2015 Results from Last 3 Months SURGICAL PATHOLOGY (03/07/2016 11:48 AM) Component Value Range PATHOLOGY REPORT [facility] [email or web address] Kathrin Jena MD, PhD, Director of Anatomic Pathology Department of Pathology and Laboratory Medicine [address] [place] [address] Surgical Pathology Office: [phone] SURGICAL PATHOLOGY REPORT NAME: TATO VALENCIA SURG PATH #: [id number] MR #: [id number] SPECIMEN CLASS: SR BILLING #: [id number] ALT ID #: LOCATION: DERM DATE OF [...]
--- NOTE | 2016-03-28 13:22 | Diagnostic Imaging Report ---
INDICATION: Nephrolithiasis. EXAMINATION: KUB at 1:30 PM. FINDINGS: The bowel gas pattern is normal. There are two small punctate calcifications projecting over the left kidney. These could be calculus fragments in the kidney versus material in the colon. IMPRESSION: Questionable left nephrolithiasis. Dictated by: Dictated on workstation # [id number]
== END ==
LOC: RAD 12:51
PROVIDERS: ATTEND Urology
DX: N20.0 Calculus of kidney (principal); Z98.890 Other specified postprocedural states
CPT/HCPCS: 74000

== ENCOUNTER 2016-04-18 09:29 | Outpatient (RCR) | payer MEDICARE, OTHER ==
--- OUTSIDE RECORDS SUMMARY | 2016-03-29 08:34 | XMS REPORT | Continuity of Care Document ---
Author Author [facility] Organization [facility] Address Unknown Phone Unavailable Care Team Providers Care Seasonal Greenery Bundler Name Role Phone Unknown, Unknown PCP Unavailable Source Comments Some departments are not documenting in the electronic medical record. If you do not see the information that you expected, contact Release of Information in the Health Information Management department at [phone] for further assistance in locating additional records.[facility] [...] by mouth daily. Active SIMON/C/LATONYA (GLUCOSAM SIMON VRN-[id number]-D-MN PO) MULTIVITAMIN PO Take by mouth daily. 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 Other chronic sinusitis Overview: 01/03/2010 Allergic [...] 03/09/2016 Documentation Dermatology Mariely Pérez MD 03/07/2016 [facility] Mariely Pérez Neoplasm of uncertain Encounter [...] 1.803 m (5' 11") 03/07/2016 10:53 AM MANAGER PEOPLE Weight 117.482 kg (259 lb) 03/07/2016 10:53 AM MANAGER PEOPLE Body Mass Index 36.14 03/07/2016 10:53 AM MANAGER PEOPLE Oxygen Saturation - - Plan of Care Date Type Specialty Providers Description 08/29/2016 Appointment Dermatology Mariely Pérez MD [address] [employer] [address] [place] [address] [phone] (Fax) 08/29/2016 Appointment Otolaryngology Thad Abreu MD [address] [facility] [address] [place] [address] [phone] (Fax) Health Maintenance Due Date Last Done Comments Hepatitis C Screening 1945 Physical (Comprehensive) 1952 Exam Pertussis Vaccine 1956 Tetanus Vaccine 1962 Colorectal Cancer 06/04/1995 Screening Shingles Vaccine 2005 Prevnar/Pneumovax (#1) 2010 Influenza Vaccine 10/13/2015 Results from Last 3 Months SURGICAL PATHOLOGY (03/07/2016 11:48 AM) Component Value Range PATHOLOGY REPORT [facility] [email or web address] Kathrin Jean MD, PhD, Director of Anatomic Pathology Department of Pathology and Laboratory Medicine [address] [place] [address] Surgical Pathology Office: [phone] SURGICAL PATHOLOGY REPORT NAME: TATO VALENCIA SURG PATH #: [id number] MR #: [id number] SPECIMEN CLASS: SR BILLING #: [id number] ALT ID #: LOCATION: DERM DATE OF [...]
[2016-03-29 09:15] LABS: ANION GAP 13 MMOL/L (5-14); BLOOD UREA NITROGEN 20 MG/DL (7-18); BUN/CREATININE RATIO 26; CALCIUM 8.3 MG/DL (8.5-10.1); CARBON DIOXIDE 22 MMOL/L (21-32); CHLORIDE 102 MMOL/L (98-107); CREATININE SERUM 0.78 MG/DL (0.60-1.30); GFR ESTIMATED > 60; GLUCOSE 108 MG/DL (70-105); PHOSPHORUS 2.7 MG/DL (2.3-4.7); POTASSIUM 3.4 MMOL/L (3.6-5.0); SODIUM 137 MMOL/L (135-145); URIC ACID 5.2 MG/DL (2.6-7.2)
--- OUTSIDE RECORDS SUMMARY | 2016-03-29 09:15 | XMS REPORT | Continuity of Care Document ---
Author Author [facility] Organization [facility] Address Unknown Phone Unavailable Care Team Providers Care Executive Director Name Role Phone Unknown, Unknown PCP Unavailable Source Comments Some departments are not documenting in the electronic medical record. If you do not see the information that you expected, contact Release of Information in the Health Information Management department at [phone] for further assistance in locating additional records.[facility] Active Allergies and Adverse Reactions Allergen [...] by mouth daily. Active SIMON/C/LATONYA (GLUCOSAM SIMON CRB-[id number]-M-MN PO) MULTIVITAMIN PO Take by mouth daily. 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 Other chronic sinusitis Overview: 01/03/2010 Allergic [...] 03/09/2016 Documentation Dermatology Mariely Pérez MD 03/07/2016 [facility] Mariely Pérez Neoplasm of uncertain Encounter [...] 1.803 m (5' 11") 03/07/2016 10:53 AM CLINCHING MACHINE OPERATOR Weight 117.482 kg (259 lb) 03/07/2016 10:53 AM CLINCHING MACHINE OPERATOR Body Mass Index 36.14 03/07/2016 10:53 AM CLINCHING MACHINE OPERATOR Oxygen Saturation - - Plan of Care Date Type Specialty Providers Description 08/29/2016 Appointment Dermatology Mariely Pérez MD [address] [employer] [address] [place] [address] [phone] (Fax) 08/29/2016 Appointment Otolaryngology Thad Abreu MD [address] [facility] [address] [place] [address] [phone] (Fax) Health Maintenance Due Date Last Done Comments Hepatitis C Screening 1945 Physical (Comprehensive) 1952 Exam Pertussis Vaccine 1956 Tetanus Vaccine 1962 Colorectal Cancer 06/04/1995 Screening Shingles Vaccine 2005 Prevnar/Pneumovax (#1) 2010 Influenza Vaccine 10/13/2015 Results from Last 3 Months SURGICAL PATHOLOGY (03/07/2016 11:48 AM) Component Value Range PATHOLOGY REPORT [facility] [email or web address] Kathrin Jean MD, PhD, Director of Anatomic Pathology Department of Pathology and Laboratory Medicine [address] [place] [address] Surgical Pathology Office: [phone] SURGICAL PATHOLOGY REPORT NAME: TATO VALENCIA SURG PATH #: [id number] MR #: [id number] SPECIMEN CLASS: SR BILLING #: [id number] ALT ID #: LOCATION: DERM DATE OF [...]
[2016-03-30 07:06] LABS: CALCIUM PARA THYROID HORMONE 8.6 mg/dL (8.5-10.5)
[2016-04-23 20:37] LABS: STONE RISK AMMONIUM 34 mEq/24hr (14-62); STONE RISK BRUSHITE 4.54 (< 2.00); STONE RISK CA OXALATE 4.62 (< 2.00); STONE RISK CALCIUM 284 mg/day (< 250); STONE RISK CITRATE 873 mg/day (> 320); STONE RISK CREATININE 1723 mg/day (800-2000); STONE RISK MAGNESIUM 134 mg/day (> 60); STONE RISK OXALATE 49 mg/day (< 45); STONE RISK PH 6.2 (5.5-7.0); STONE RISK PHOSPHOROUS 999 mg/day (< 1100); STONE RISK POTASSIUM 68 mEq/24hr (19-135); STONE RISK SODIUM 134 mEq/24hr (< 200); STONE RISK SODIUM URATES 5.44 (< 2.00); STONE RISK STRUVITE 3.56 (< 75.00); STONE RISK SULFITE 15 mmol/day (< 30); STONE RISK TOTAL VOLUME 1.14 L/day (> 2.00); STONE RISK URIC ACID 739 mg/day (< 700); STONE RISK URIC ACID SAT 1.78 (< 2.00)
== END 2016-06-27 | disposition home or self-care (01) ==
LOC: LAB 09:29
PROVIDERS: ATTEND Urology
DX: N20.9 Urinary calculus, unspecified (principal); E29.1 Testicular hypofunction
CPT/HCPCS: 36415; 80048; 82140; 82340; 82507; 82570; 83735; 83945; 83970; 83986; 84100; 84105; 84133; 84300; 84392; 84403; 84550; 84560

== ENCOUNTER 2018-10-19 06:19 | Inpatient (IN) | payer MEDICARE, OTHER ==
[~2018-10-19] VITALS: Ht 180.3 cm; Wt 110.2 kg
[2018-10-19] VITALS (7 sets, daily range): BP systolic 123–154; BP diastolic 76–118
[~2018-10-19 06:19] MED LIST changes: +ACHD5005 PO; -CYAN500T2 PO; +CYAN500T62 PO; -HYDR-3812 PO; +LOSA1TAB23 PO; -LOSA1TAB70 PO; +METF-397 PO; -METF500T4 PO; +NAPR-1071 PO; -NAPR500T PO; -OMEP20CA12 PO; +OMEP20CA13 PO
[2018-10-19] MEDS ORDERED: ASPIRIN 81 MG CHEW (CHILDREN'S ASA) ONE (06:37)
[2018-10-19] MEDS ORDERED: NITROGLYCERIN 0.4 MG SL TABS BTL 25'S SL ONE (06:40)
[2018-10-19] MEDS ORDERED: ASPIRIN 81 MG CHEW (CHILDREN'S ASA) PO ONE (07:00)
[2018-10-19] MEDS ORDERED: NITROGLYCERIN 0.4 MG SL TABS BTL 25'S SL PRN ×2 (07:00→09:30)
[2018-10-19] MEDS ORDERED: NS IV 1000 ML 1,000 ML IV SCH ×3 (07:00→12:56)
[2018-10-19 07:02] LABS: BASOPHILS % (AUTO) 0 % (0-10); EOSINOPHILS # (AUTO) 0.2 10^3/uL (0.0-0.3); EOSINOPHILS % (AUTO) 1 % (0-10); HEMATOCRIT 49 % (40-54); HEMOGLOBIN 16.2 G/DL (13.3-17.7); LYMPHOCYTES # (AUTO) 4.5 X 10^3 (1.0-4.0); LYMPHOCYTES % (AUTO) 32 % (12-44); MEAN CORPUSCULAR HEMOGLOBIN 30 PG (25-34); MEAN CORPUSCULAR HGB CONC 33 G/DL (32-36); MEAN CORPUSCULAR VOLUME 91 FL (80-99); MEAN PLATELET VOLUME 10.9 FL (7.4-10.4); MONOCYTES # (AUTO) 1.1 X 10^3 (0.0-1.0); MONOCYTES % (AUTO) 8 % (0-12); NEUTROPHILS # (AUTO) 8.1 X 10^3 (1.8-7.8); NEUTROPHILS % (AUTO) 58 % (42-75); PLATELET COUNT 265 10^3/uL (130-400); RED CELL DISTRIBUTION WIDTH 14.8 % (10.0-14.5); WHITE BLOOD COUNT 13.9 10^3/uL (4.3-11.0)
--- NOTE | 2018-10-19 07:02 | ED Chest Pain ---
General Chief Complaint: Chest Pain Stated Complaint: CHEST PAIN Source: patient, family Exam Limitations: no limitations History of Present Illness Date Seen by Provider: Oct 19, 2018 Time Seen by Provider: 06:56 Initial Comments This 73-year-old white male presents with chest pain that began at approximately 4:30 this morning and was acute enough precipitate his presentation to the emergency department. The patient actually had had left-sided chest pain that started yesterday but he did not tell his for feel that it was significant enough to warrant evaluation. Although the patient has a history of severe reflux for which she is on omeprazole he has not had left anterior chest pain until today. His reflux normally causes him to have epigastric pain. He's had no associated nausea or vomiting. There is been no diaphoresis. The patient has had a negative stress test with his primary care physician Dr. Sawyer in the past. Patient denies shortness of breath. He's had no associated fever or chills or productive cough. Patient's chest pain is judged to be medium in intensity and sharp in nature. Past medical history of significance includes hypertension and diabetes. Patient has severe hearing problems and employees rather complex hearing aids from [employer]. He is on meclizine for chronic dizziness as well. Allergies and Home Medications Allergies Coded Allergies: pseudoephedrine (Verified Adverse Reaction, Mild, passed out, 10/19/18) Patient states the only thing he has had a reaction to is the advil cold and sinus he received at a conference once and it made him pass out, he wishes to not receive this medication Home Medications Cholecalciferol (Vitamin D3) 2,000 Unit Capsule, 2,000 UNIT PO DAILY, (Reported) Cyanocobalamin (Vitamin B-12) 500 Mcg Tablet, 500 MCG PO DAILY, (Reported) Diclofenac Sodium 100 Gm Gel..gram., TOP BID PRN for PAIN, (Reported) Diltiazem HCl 240 Mg Cap.er.deg, 240 MG PO DAILY, (Reported) Fluticasone Propionate 16 Gm [place].susp, 2 SPRAY NS BID, (Reported) Hydrocodone/Acetaminophen 1 Each Tablet, 1-2 EACH PO Q4H MAY TAKE ONE OR TWO TABLETS BY MOUTH EVERY 4 HOURS NEEDED FOR PAIN. Prescribed by: KINGSTON BURCIAGA on 02/28/16 1246 Losartan/Hydrochlorothiazide 1 Each Tablet, 1 TAB PO DAILY, (Reported) Meclizine HCl 25 Mg Tablet, 25 MG PO BID, (Reported) Meloxicam 15 Mg Tablet, 15 MG PO HS, (Reported) Metformin HCl 500 Mg Tablet, 500 MG PO BID WITH MEALS, (Reported) Montelukast Sodium 10 Mg Tablet, 10 MG PO DAILY, (Reported) Nitrofurantoin Macrocrystal 100 Mg Capsule, 100 MG PO BID Prescribed by: REJI SMITH on 03/14/16 0931 [place] 3 Polyunsat Fatty Acids 1,000 Mg Cap, 1,000 MG PO DAILY, (Reported) Omeprazole 20 Mg Capsule.dr, 20 MG PO DAILY, (Reported) Phenazopyridine HCl 200 Mg Tablet, 1 TAB PO TID MAY TAKE ONE TABLET BY MOUTH UP TO THREE TIMES A DAY NEEDED FOR BLADDER SPASM/PAIN. LAST DOSE GIVEN AT 11:22 AM 02/28/16. Prescribed by: KINGSTON BURCIAGA on 02/28/16 1203 Propylene Glycol/Peg 400/Pf 1 Each Droperette, 1 DROP OU BID, (Reported) Simvastatin 20 Mg Tablet, 20 MG PO DAILY, (Reported) Sodium Chloride/Aloe Vera 14.1 Gm Gel..gram., TP BID, (Reported) Sodium Chloride/Sodium Bicarb 1 Each Packet, 1 PACKET NS DAILY, (Reported) Tamsulosin HCl 0.4 Mg Cap, 0.4 MG PO DAILY TAKE ONE CAPSULE BY MOUTH DAILY FOR 14 DAYS. Prescribed by: KINGSTON BURCIAGA on 02/28/16 1245 Tolterodine Tartrate 2 Mg Tablet, 2 MG PO DAILY, (Reported) Patient Home Medication List Home Medication List Reviewed: Yes Review of Systems Review of Systems Constitutional: No chills, No fever; malaise EENTM: No Blurred Vision Respiratory: Denies Cough, Denies Shortness of Air Cardiovascular: See HPI, Chest Pain (left anterior chest); Denies Palpitations Gastrointestinal: Denies See HPI; Abdominal Pain (epigastric) Genitourinary: No Symptoms Reported Musculoskeletal: joint pain (left shoulder posteriorly associated with the patient's left anterior chest pain.) Skin: no symptoms reported; No rash Psychiatric/Neurological: No Symptoms Reported Endocrine: No Symptoms Reported Hematologic/Lymphatic: No Symptoms Reported Past [id number] Hx Past Med/Social Hx: Reviewed Nursing Past Med/Soc Hx Patient Social History Recent Foreign Travel: No Contact w/Someone Who Travel: No Recent Hopitalizations: No Immunizations Up To Date Tetanus Booster (TDap): Less than 5yrs PED Vaccines UTD: Yes Date of Pneumonia Vaccine: Feb 10, 2016 Date of Influenza Vaccine: Nov 14, 2015 Seasonal Allergies Seasonal Allergies: No Past Medical History Respiratory: No Sleep Apnea Currently Using CPAP: Yes Cardiac: Yes High Cholesterol, Hypertension Neurological: No Reproductive Disorders: No Sexually Transmitted Disease: No HIV/AIDS: No Genitourinary: Yes Kidney Stones Gastrointestinal: Yes (hiatal hernia) Gastroesophageal Reflux, Hiatal Hernia Musculoskeletal: Yes Arthritis Endocrine: Yes Diabetes, Non-Insulin dep HEENT: Yes (COCHLEAR IMPLANT) Loss of Vision: Bilateral Hearing Impairment: Hard of Hearing Cancer: No Psychosocial: No Integumentary: No Blood Disorders: No Adverse Reaction/Blood Tranf: No Family Medical History DENIES Physical Exam Vital Signs Vital Signs - First Documented 10/19/18 10/19/18 06:19 06:45 Temp 97.5 Pulse 85 Resp 17 B/P (MAP) 148/97 (114) Pulse Ox 95 O2 Delivery Nasal Cannula O2 Flow Rate 2.00 Capillary Refill : Height, Weight, BMI Height: 5'11.00" Weight: 258lbs. 2.0oz. [id number]; 36.0 BMI Method:Stated General Appearance: No Apparent Distress, WD/WN HEENT: Normal ENT Inspection Neck: Normal Inspection Respiratory: Lungs Clear, Normal Breath Sounds, No Respiratory Distress, Other (some tenderness palpation over left anterior chest and shoulder.) Cardiovascular: Irregularly Irregular Gastrointestinal: Normal Bowel Sounds, Non Tender, Tenderness (in the epigastric area) Extremity: Normal Capillary Refill, Normal Inspection, Normal Range of Motion, Non Tender Skin: Normal Color, Warm/Dry Progress/Results/Core Measures Results/Orders Lab Results Laboratory Tests Test 10/19/18 06:25 10/19/18 06:32 Range/Units Prothrombin Time 13.1 12.2-14.7 SEC INR Comment 1.0 0.8-1.4 Activated Partial Thromboplast Time 33 24-35 SEC Sodium Level 138 135-145 MMOL/L Potassium Level 3.6 3.6-5.0 MMOL/L Chloride Level 99 98-107 MMOL/L Carbon Dioxide Level 28 21-32 MMOL/L Anion Gap 11 5-14 MMOL/L Blood Urea Nitrogen 15 7-18 MG/DL Creatinine 0.88 0.60-1.30 MG/DL Estimat Glomerular Filtration Rate > 60 BUN/Creatinine Ratio 17 Glucose Level 122 H 70-105 MG/DL Calcium Level 10.0 8.5-10.1 MG/DL Corrected Calcium 9.8 8.5-10.1 MG/DL Magnesium Level 1.7 1.6-2.4 MG/DL Total Bilirubin 0.7 0.1-1.0 MG/DL Aspartate Amino Transf (AST/SGOT) 25 5-34 U/L Alanine Aminotransferase (ALT/SGPT) 23 0-55 U/L Alkaline Phosphatase 92 40-136 U/L Myoglobin 62.2 10.0-92.0 NG/ML Troponin I 0.508 *H <0.028 NG/ML Total Protein 7.2 6.4-8.2 GM/DL Albumin 4.2 3.2-4.5 GM/DL White Blood Count 13.9 H 4.3-11.0 10^3/uL Red Blood Count 5.43 4.35-5.85 10^6/uL Hemoglobin 16.2 13.3-17.7 G/DL Hematocrit 49 40-54 % Mean Corpuscular Volume 91 80-99 FL Mean Corpuscular Hemoglobin 30 25-34 PG Mean Corpuscular Hemoglobin Concent 33 32-36 G/DL Red Cell Distribution Width 14.8 H 10.0-14.5 % Platelet Count 265 130-400 10^3/uL Mean Platelet Volume 10.9 H 7.4-10.4 FL Neutrophils (%) (Auto) 58 42-75 % Lymphocytes (%) (Auto) 32 12-44 % Monocytes (%) (Auto) 8 0-12 % Eosinophils (%) (Auto) 1 0-10 % Basophils (%) (Auto) 0 0-10 % Neutrophils # (Auto) 8.1 H 1.8-7.8 X 10^3 Lymphocytes # (Auto) 4.5 H 1.0-4.0 X 10^3 Monocytes # (Auto) 1.1 H 0.0-1.0 X 10^3 Eosinophils # (Auto) 0.2 0.0-0.3 10^3/uL Basophils # (Auto) 0.0 0.0-0.1 10^3/uL My Orders Orders - JENNIFER, KIKA Gaston MD Cbc With Automated Diff (10/19/18 06:53) Magnesium (10/19/18 06:53) Chest 1 View, Ap/Pa Only (10/19/18 06:53) Ekg Tracing (10/19/18 06:53) Cardiac Profile 1 (10/19/18 06:53) Comprehensive Metabolic Panel (10/19/18 06:53) Myoglobin Serum (10/19/18 06:53) Protime With Inr (10/19/18 06:53) Partial Thromboplastin Time (10/19/18 06:53) O2 (10/19/18 06:53) Monitor-Rhythm Ecg Trace Only (10/19/18 06:53) Lipid Panel (10/20/18 06:00) Ed Iv/Invasive Line Start (10/19/18 06:53) Nitroglycerin 0.4 Mg Btl 25's (Nitrostat (10/19/18 07:00) Aspirin Chewable Tablet (Baby Aspirin Ch (10/19/18 07:00) Ns Iv 1000 Ml (Sodium Chloride 0.9%) (10/19/18 07:00) Oxygen-Administer (10/19/18 06:54) Ticagrelor Tablet (Brilinta Tablet) (10/19/18 07:45) Lorazepam Injection (Ativan Injection) (10/19/18 07:43) Medications Given in ED Current Medications Medications Dose Ordered Sig/Chip Route Start Time Stop Time Status Last Admin Dose Admin Aspirin 81 mg STK-MED ONCE .ROUTE 10/19/18 06:37 10/19/18 06:46 DC 10/19/18 06:45 81 MG Nitroglycerin 0.4 mg STK-MED ONCE SL 10/19/18 06:40 10/19/18 06:48 DC 10/19/18 06:48 0.4 MG Nitroglycerin 0.4 mg UD PRN SL 10/19/18 07:00 10/19/18 06:57 0.4 MG Vital Signs/I&O 10/19/18 10/19/18 10/19/18 10/19/18 06:19 06:45 06:48 06:50 Temp 97.5 Pulse 85 131 Resp 17 B/P (MAP) 148/97 (114) 146/105 (119) 134/89 (104) Pulse Ox 95 95 O2 Delivery Nasal Cannula O2 Flow Rate 2.00 10/19/18 06:55 B/P (MAP) 154/118 (130) Blood Pressure Mean: 119 Progress Progress Note : Time: 07:03 Progress Note The patient's EKG demonstrated an apparent new onset atrial fibrillation with a ventricular response rate of approximately 100. There was no acute current of injury noted. The patient received 4 baby aspirin and 2 sublingual nitroglycerin. The patient's perception was that his chest pain was improved with the nitroglycerin. After 2 nitroglycerin the patient related that his chest pain was 0. The patient's troponin was elevated at 0.508. and Dr. Oneal were consulted and were kind enough to care for the patient. Brilinta 180 mg was ordered. Pt transferred to [facility] in stable condition. Departure Communication (Admissions) Time/Spoke to Admitting Phy: 07:46 Dr. Oneal Time/Spoke to Consulting Phy: 07:47 Dr. Sanders Impression Primary Impression: Acute myocardial infarction Qualified Codes: I21.4 - Non-ST elevation (NSTEMI) myocardial infarction Disposition: ADMITTED INPATIENT Condition: Improved Admissions Decision to Admit Reason: Admit from ER (General) Decision to Admit/Date: Oct 19, 2018 Time/Decision to Admit Time: 07:47 Departure-Patient Inst. Referrals: EMILE SAWYER DO (PCP/Family) Primary Care Physician KIKA RODRIGUEZ MD Oct 19, 2018 07:01
--- NOTE | 2018-10-19 07:05 | NUR ---
SEE LIST FOR CURRENT MEDS
--- NOTE | 2018-10-19 07:05 | NUR ---
REPORT FROM ANGEL
[2018-10-19 07:06] LABS: PROTHROMBIN TIME PATIENT 13.1 SEC (12.2-14.7)
[2018-10-19 07:13] LABS: ALANINE AMINOTRANSFERASE 23 U/L (0-55); ALKALINE PHOSPHATASE 92 U/L (40-136); BILIRUBIN,TOTAL 0.7 MG/DL (0.1-1.0); BUN/CREATININE RATIO 17; CARBON DIOXIDE 28 MMOL/L (21-32); CHLORIDE 99 MMOL/L (98-107); CREATININE SERUM 0.88 MG/DL (0.60-1.30); GFR ESTIMATED > 60; GLUCOSE 122 MG/DL (70-105); MAGNESIUM 1.7 MG/DL (1.6-2.4); POTASSIUM 3.6 MMOL/L (3.6-5.0); SODIUM 138 MMOL/L (135-145); TOTAL PROTEIN 7.2 GM/DL (6.4-8.2)
[2018-10-19 07:14] LABS: ALBUMIN 4.2 GM/DL (3.2-4.5)
--- NOTE | 2018-10-19 07:15 | NUR ---
PT DENIES PAIN STATES @THIS X
--- NOTE | 2018-10-19 07:31 | Diagnostic Imaging Report ---
Patient History: Chest pain. Technique: Single frontal view of the chest Comparison: None FINDINGS: The lung volumes are normal. Patchy alveolar opacities are seen in the left lung base. No large pleural effusion or pneumothorax is seen. The cardiomediastinal silhouette is normal in size and contour. There is calcified aortic atherosclerotic plaque. No acute osseous abnormality is seen. IMPRESSION: 1. Patchy opacities in the left lung base, which may represent atelectasis and/or infection. Dictated by: Dictated on workstation # [id number]
[2018-10-19] MEDS ORDERED: LORazepam INJ 2 MG/ML (ATIVAN) VIAL ONE (07:39)
[2018-10-19] MEDS ORDERED: LORazepam INJ 2 MG/ML (ATIVAN) VIAL IVP STA (07:43)
[2018-10-19] MEDS ORDERED: TICAGRELOR 90 MG TABLET (BRILINTA) PO ONE (07:45)
--- NOTE | 2018-10-19 08:25 | NUR ---
PT TAKEN TO ICU BY TELECOMMUNICATIONS NETWORK ENGINEER JOÃO Manzo MONITOR
--- NOTE | 2018-10-19 10:13 | Consultation-Cardiology ---
HPI-Cardiology Cardiology Consultation: Date of Consultation 10/19/18 Date of Admission Attending Physician Susie Oneal MD Admitting Physician Urbano Sawyer DO Consulting Physician Chris SANDERS MD HPI: Time Seen by a Provider: 10:12 Chief Complaint: Chest pain This is a 73-year-old gentleman who has history of diabetes, hypertension and hyperlipidemia. He presents to the ER at 4:30 in the morning with complaints of chest pain. He is been having left sided chest pain since yesterday. Moderate intensity. Radiation to the left arm. Improvement with 2 nitroglycerin. No as sociated other cardiac symptoms including shortness of breath, palpitation, syncope or near syncope. Remote history of a negative stress test. No past cardiac history. He has a history of hiatal hernia and reflux. He was also found to have atrial fibrillation with rapid ventricular rate in the ER. 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 He follows with Dr. Sawyer for internal medicine. Review of Systems-Cardiology Review of Systems Constitutional: As described under HPI; No As described under HPI, No no symptoms reported, No chills, No fever, No lightheadedness Eyes: No As described under HPI, No no symptoms reported, No blindness, No blurred vision, No contact lenses, No drainage, No decreased acuity, No foreign body sensation, No pain, No vision change Ears/Nose/Throat: No As described under HPI, No no symptoms reported, No chronic hearing loss, No ear discharge, No ear pain, No nasal drainage, No ulcerations Respiratory: No no symptoms reported; As described under HPI; No As described under HPI, No cough, No orthopnea, No shortness of breath, No SOB with excertion Cardiovascular: No no symptoms reported; As described under HPI; No As described under HPI; chest pain; No edema, No irregular heart rate, No lightheadedness, No palpitations Gastrointestinal: No no symptoms reported, No As described under HPI, No abdomen distended, No abdominal pain, No blood streaked bowels, No constipation, No diarrhea, No nausea, No vomiting, No stool coloration changes Genitourinary: No As described under HPI, No burning, No dysuria, No discharge, No frequency, No flank pain, No hematuria, No urgency Skin: No rash, No skin related problems, No ulcerations Psychiatric/Neurological: No anxiety, No depression, No seizure, No focal weakness, No syncope Hematologic: No bleeding abnormalities [id number] Hx Patient Social History Alcohol Use: Denies Use Recreational Drug Use: No Recent Foreign Travel: No Recent Infectious Disease Expo: No Hospitalization with Isolation: Denies Immunizations Up To Date Tetanus Booster (TDap): Less than 5yrs Date of Pneumonia Vaccine: Feb 10, 2016 Date of Influenza Vaccine: Nov 14, 2015 Past Medical History PMH As described under Assessment. Family Medical History Family History: DENIES Allergies and Home Medications Allergies Coded Allergies: pseudoephedrine (Verified Adverse Reaction, Mild, passed out, 10/19/18) Patient states the only thing he has had a reaction to is the advil cold and sinus he received at a conference once and it made him pass out, he wishes to not receive this medication Home Medications Cholecalciferol (Vitamin D3) 2,000 Unit Capsule, 2,000 UNIT PO DAILY, (Reported) Cyanocobalamin (Vitamin B-12) 500 Mcg Tablet, 500 MCG PO DAILY, (Reported) Diclofenac Sodium 100 Gm Gel..gram., TOP BID PRN for PAIN, (Reported) Diltiazem HCl 240 Mg Cap.er.deg, 240 MG PO DAILY, (Reported) Fluticasone Propionate 16 Gm [place].susp, 2 SPRAY NS BID, (Reported) Hydrocodone/Acetaminophen 1 Each Tablet, 1-2 EACH PO Q4H MAY TAKE ONE OR TWO TABLETS BY MOUTH EVERY 4 HOURS NEEDED FOR PAIN. Prescribed by: KINGSTON BURCIAGA on 02/28/16 1246 Losartan/Hydrochlorothiazide 1 Each Tablet, 1 TAB PO DAILY, (Reported) Meclizine HCl 25 Mg Tablet, 25 MG PO BID, (Reported) Meloxicam 15 Mg Tablet, 15 MG PO HS, (Reported) Metformin HCl 500 Mg Tablet, 500 MG PO BID WITH MEALS, (Reported) Montelukast Sodium 10 Mg Tablet, 10 MG PO DAILY, (Reported) Nitrofurantoin Macrocrystal 100 Mg Capsule, 100 MG PO BID Prescribed by: REJI SMITH on 03/14/16 0931 [place] 3 Polyunsat Fatty Acids 1,000 Mg Cap, 1,000 MG PO DAILY, (Reported) Omeprazole 20 Mg Capsule.dr, 20 MG PO DAILY, (Reported) Phenazopyridine HCl 200 Mg Tablet, 1 TAB PO TID MAY TAKE ONE TABLET BY MOUTH UP TO THREE TIMES A DAY NEEDED FOR BLADDER SPASM/PAIN. LAST DOSE GIVEN AT 11:22 AM 02/28/16. Prescribed by: KINGSTON BURCIAGA on 02/28/16 1203 Propylene Glycol/Peg 400/Pf 1 Each [place], 1 DROP OU BID, (Reported) Simvastatin 20 Mg Tablet, 20 MG PO DAILY, (Reported) Sodium Chloride/Aloe Vera 14.1 Gm Gel..gram., TP BID, (Reported) Sodium Chloride/Sodium Bicarb 1 Each Packet, 1 PACKET NS DAILY, (Reported) Tamsulosin HCl 0.4 Mg Cap, 0.4 MG PO DAILY TAKE ONE CAPSULE BY MOUTH DAILY FOR 14 DAYS. Prescribed by: KINGSTON BURCIAGA on 02/28/16 1245 Tolterodine Tartrate 2 Mg Tablet, 2 MG PO DAILY, (Reported) Patient Home Medication List Home Medication List Reviewed: Yes Physical Exam-Cardiology Physical Exam Vital Signs/I&O 10/19/18 10/19/18 10/19/18 10/19/18 06:19 06:45 06:48 06:50 Temp 97.5 Pulse 85 131 Resp 17 B/P (MAP) 148/97 (114) 146/105 (119) 134/89 (104) Pulse Ox 95 95 O2 Delivery Nasal Cannula O2 Flow Rate 2.00 10/19/18 10/19/18 10/19/18 10/19/18 06:55 08:02 08:54 09:04 Temp 99.1 Pulse 97 Resp 18 B/P (MAP) 154/118 (130) 109/90 (96) Pulse Ox 98 94 O2 Delivery Room Air Room Air Room Air 10/19/18 09:24 Pulse 107 Capillary Refill : Less Than 3 Seconds Constitutional: AAO x 3, well-developed, well-nourished HEENT: PERRL, hard of hearing Neck: non-tender, full range of motion; No supple; normal inspection; No carotid bruit, No limited range of motion, No lymphadenopathy (R), No lymphadenopathy (L), No tender lateral, No tender midline, No thyromegaly, No other; carotid pulses are 2 + bilaterally, with good upstrokes Respiratory: chest is bilaterally symmetric, lungs clear to auscultation Cardiovascular: irregularly irregular, tachycardia, S1 and S2, systolic murmur Gastrointestinal: soft, round, audible bowel sounds Rectal: deferred Extremities: normal range of motion, non-tender, normal inspection, no lower extremity edema bilateral Neurologic/Psychiatric: no motor/sensory deficits, alert, normal mood/affect, o riented x 3 Skin: normal color; No warm/dry, No cyanosis, No cool, No diaphoresis, No damp, No ecchymosis, No jaundice, No mottled, No pallor, No rash, No tattoos/piercings, No ulcerations, No rash on exposed areas, No ulcerations on exposed areas, No other Data Review Labs Laboratory Tests 10/19/18 06:25: Prothrombin Time 13.1, INR Comment 1.0, Activated Partial Thromboplast Time 33, Sodium Level 138, Potassium Level 3.6, Chloride Level 99, Carbon Dioxide Level 28, Anion Gap 11, Blood Urea Nitrogen 15, Creatinine 0.88, Estimat Glomerular Filtration Rate > 60, BUN/Creatinine Ratio 17, Glucose Level 122H, Calcium Level 10.0, Corrected Calcium 9.8, Magnesium Level 1.7, Total Bilirubin 0.7, Aspartate Amino Transf (AST/SGOT) 25, Alanine Aminotransferase (ALT/SGPT) 23, Alkaline Phosphatase 92, Myoglobin 62.2, Troponin I 0.508*H, Total Protein 7.2, Albumin 4.2 10/19/18 06:32: White Blood Count 13.9H, Red Blood Count 5.43, Hemoglobin 16.2, Hematocrit 49, Mean Corpuscular Volume 91, Mean Corpuscular Hemoglobin 30, Mean Corpuscular Hemoglobin Concent 33, Red Cell Distribution Width 14.8H, Platelet Count 265, Mean Platelet Volume 10.9H, Neutrophils (%) (Auto) 58, Lymphocytes (%) (Auto) 32, Monocytes (%) (Auto) 8, Eosinophils (%) (Auto) 1, Basophils (%) (Auto) 0, Neutrophils # (Auto) 8.1H, Lymphocytes # (Auto) 4.5H, Monocytes # (Auto) 1.1H, Eosinophils # (Auto) 0.2, Basophils # (Auto) 0.0 ECG Impression ECG Initial ECG Rhythm: A Fib/Flutter Comment Half a millimeter ST elevation in the inferior leads. ST depressions in the anterior precordial leads as well as 1 and aVL. A/P-Cardiology Assessment/Admission Diagnosis Non-STEMI, Atrial fibrillation with rapid ventricular rate, Systolic murmur, Diabetes, Hypertension, Hyperlipidemia. Plan Non-STEMI, still mild chest discomfort. Abnormal EKG and first set of cardiac enzymes. Coronary angiography is recommended. Informed consent was taken. All complications were explained in detail. Patient received aspirin and Brilinta in the ER. Recommended echocardiogram. Atrial fibrillation with rapid ventricular rate, will start oral anticoagulation after coronary angiography. Will likely require amiodarone and beta blockers overnight. If the patient does not convert by tomorrow, we will schedule transesophageal echocardiogram assisted cardioversion. Informed consent was taken. Systolic murmur, echocardiogram. Diabetes, hold metformin for now. Hypertension, stable blood pressure. Hyperlipidemia. Will require high-dose statin therapy. Thank you for your consultation. Please call me if you have any questions. Jesu Sanders MD, FACP, FACC, FSCAI, FHRS, CCDS Interventional Cardiology Cardiac Electrophysiology Vascular Medicine and Endovascular Interventions Clinical Quality Measures AMI/AHF: ASA po Prior to arrival: No DVT/VTE Risk/Contraindication: Risk Factor Score Per Nursin RFS Level Per Nursing on Admit: 4+=Very High Chris SANDERS MD Oct 19, 2018 10:13
[2018-10-19] MEDS ORDERED: LIDOCAINE 1% INJ 20 ML 20 ML VIAL ONE (10:28)
[2018-10-19] MEDS ORDERED: HEParin (CATH LAB) 2,000 ML IV ONE (10:28)
[2018-10-19] MEDS ORDERED: MIDAZOLAM 5 MG/5 ML (VERSED) VIAL ONE (10:47)
[2018-10-19] MEDS ORDERED: fentaNYL INJECTION 100 MCG/2 ML AMP ONE (10:47)
--- NOTE | 2018-10-19 11:00 | NUR ---
PATIENT OFF FLOOR AT THIS TIME WITH MORTGAGE LOAN COORDINATOR TEAM.
[2018-10-19] MEDS ORDERED: NITRO DRIP 25000 MCG/D5W 0 ML IV ONE (11:29)
[2018-10-19] MEDS ORDERED: HEParin 1000 UNIT/ML (10ML VIAL) FOR BOLUS ONE (11:29)
[2018-10-19] MEDS ORDERED: NS IV 1000 ML 1,000 ML ONE (11:29)
--- NOTE | 2018-10-19 11:33 | History & Physical-Hospitalist ---
History of Present Illness HPI/Chief Complaint Flo Valencia is a 73-year-old male with past medical history of hypertension, hyperlipidemia, BPH, who presented with chest pain. He says that the pain started this morning and radiated to his arm, neck, and jaw. He reports no nausea, vomiting, or diaphoresis. He denies any shortness of breath. He did feel chills. His family is present and they state that he had been feeling weak for the past couple of weeks. He denies any prior coronary artery disease history. He denies ever feeling like this before. Source: patient, family Exam Limitations: no limitations Date Seen 10/19/18 Time Seen by a Provider: 11:00 Attending Physician Jonny Cardenas MD PCP Urbano Sawyer DO Referring Physician Date of Admission Oct 19, 2018 at 07:30 Home Medications & Allergies Home Medications Reviewed patient Home Medication Reconciliation performed by pharmacy medication reconciliations collection systems technician and/or nursing. Patients Allergies have been reviewed. Allergies Allergies Coded Allergies pseudoephedrine (Verified Adverse Reaction, Mild, passed out, 10/19/18) Patient states the only thing he has had a reaction to is the advil cold and sinus he received at a conference once and it made him pass out, he wishes to not receive this medication Past Kdakfoj-Cyvkpi-Nibklr Hx Past Med/Social Hx: Reviewed Nursing Past Med/Soc Hx Patient Social History Alcohol Use: Denies Use Recreational Drug Use: No Recent Foreign Travel: No Contact w/other who traveled: No Recent Hopitalizations: No Recent Infectious Disease Expo: No Immunizations Up To Date Tetanus Booster (TDap): Less than 5yrs Pediatric: Yes Date of Pneumonia Vaccine: Feb 10, 2016 Date of Influenza Vaccine: Nov 14, 2015 Seasonal Allergies Seasonal Allergies: No Past Medical History Currently Using CPAP: Yes Cardiac: High Cholesterol, Hypertension Reproductive: No Sexually Transmitted Disease: No HIV/AIDS: No Genitourinary: Kidney Stones Gastrointestinal: Gastroesophageal Reflux, Hiatal Hernia Musculoskeletal: Arthritis Endocrine: Diabetes, Non-Insulin dep Loss of Vision: Bilateral Hearing Impairment: Hard of Hearing History of Blood Disorders: No Adverse Reaction to Blood Johnston: No Family History DENIES Review of Systems Constitutional: chills, weakness EENTM: no symptoms reported Respiratory: no symptoms reported Cardiovascular: chest pain Gastrointestinal: no symptoms reported Genitourinary: no symptoms reported Musculoskeletal: no symptoms reported Skin: no symptoms reported Psychiatric/Neurological: No Symptoms Reported Physical Exam Physical Exam Vital Signs Vital Signs - First Documented 10/19/18 10/19/18 06:19 06:45 Temp 97.5 Pulse 85 Resp 17 B/P (MAP) 148/97 (114) Pulse Ox 95 O2 Delivery Nasal Cannula O2 Flow Rate 2.00 Capillary Refill : Less Than 3 Seconds Height, Weight, BMI Height: 5'11.00" Weight: 243lbs. 0oz. 110.552130si; 36.0 BMI Method:Stated General Appearance: No Apparent Distress, WD/WN, Obese HEENT: PERRL/EOMI, Pharynx Normal Neck: Normal Inspection, Supple Respiratory: Lungs Clear, Normal Breath Sounds, No Respiratory Distress Cardiovascular: Irregularly Irregular, Tachycardia Gastrointestinal: Normal Bowel Sounds, Non Tender, Soft Extremity: Normal Inspection, Non Tender, Pedal Edema Neurologic/Psychiatric: Alert, Oriented x3 Skin: Normal Color, Warm/Dry Lymphatic: No Adenopathy Results Results/Procedures Labs Laboratory Tests 10/19/18 06:25 10/19/18 06:32 Patient resulted labs reviewed. Imaging: Reviewed Imaging Report Assessment/Plan Admission Diagnosis NSTEMI Admission Status: Inpatient Order (span 2 midnights) Reason for Inpatient Admission: Hypertension Hyperlipidemia Obesity Atrial fibrillation Assessment and Plan NSTEMI Paroxysmal atrial fibrillation Troponin elevated at 0.5 on admission EKG with ST depressions in anterolateral leads and slight elevations in the inferior leads Given aspirin Cardiology consulted Planning for left heart catheterization today If remains in atrial fibrillation, may need cardioversion tomorrow Hypertension BPH GERD Continue home meds Obesity Clinically significant, no acute management needs Diagnosis/Problems Diagnosis/Problems (1) NSTEMI (non-ST elevated myocardial infarction) Status: Acute (2) Paroxysmal atrial fibrillation Status: Acute (3) Hypertension Status: Chronic (4) Hyperlipidemia Status: Chronic (5) BPH (benign prostatic hyperplasia) Status: Chronic (6) GERD (gastroesophageal reflux disease) Status: Chronic (7) Obesity Status: Chronic Clinical Quality Measures AMI/AHF: ASA po Prior to arrival: No DVT/VTE Risk/Contraindication: Risk Factor Score Per Nursin RFS Level Per Nursing on Admit: 4+=Very High JONNY CARDENAS MD Oct 19, 2018 11:33
--- NOTE | 2018-10-19 12:56 | Cardiac Procedure Note-CS/ASA ---
Pre-Procedure Note Pre-Op Procedure Note H&P Reviewed The H&P was reviewed, patient examined and no changes noted. Date H&P Reviewed: Oct 19, 2018 Time H&P Reviewed: 10:00 Conscious Sedation Pre-Proced Time 10:00 ASA Score 3 For ASA 3 and 4: Consider anesthesia and medical clearance. Also, for patients with a history of failed moderate sedation consider anesthesia. Airway Lungs Heart ASA score ASA 1: a normal healthy patient ASA 2: a patient with a mild systemic disease (mid diabetes, controlled hypertension, obesity ASA 3: a patient with a severe systemic disease that limits activity (angina, COPD, prior Myocardial infarction) ASA 4: a patient with an incapacitating disease that is a constant threat to life (CHF, renal failure) ASA 5: a moribund patient not expected to survive 24 hrs. (ruptured aneurysm) ASA 6: a declared brain- patient whose organs are being harvested. For emergent operations, add the letter E after the classification Mallampati Classification Grade 1 Sedation Plan Analgesia, Amnesia, Plan communicated to team members, Discussed options with patient/fam, Discussed risks with patient/fam The patient is an appropriate candidate to undergo the planned procedure, sedation, and anesthesia. The patient immediately re-assessed prior to indication. Chris HUTCHINS MD Oct 19, 2018 12:56
[2018-10-19] MEDS ORDERED: PATIENT MAY USE OWN MEDS, ALL PO SCH (13:00)
--- NOTE | 2018-10-19 13:03 | Coronary Angiography & PCI ---
Coronary Angiography & PCI DATE OF PROCEDURE: 10/19/18 INDICATION: non-STEMI. PREOPERATIVE DIAGNOSIS: non-STEMI. POSTOPERATIVE DIAGNOSIS: unsuccessful PCI of the distal RCA and OM1. HISTORY: this is a 73-year-old gentleman with history of diabetes, hypertension and hyperlipidemia. He presents with a sore or chest pain radiating to the left arm. Positive cardiac enzymes. Working diagnosis is non-STEMI. He also had atrial fibrillation with rapid ventricular rate.Therefore, the patient was scheduled for coronary angiography. PROCEDURES PERFORMED: 1.Coronary angiography. 2.Left heart catheterization. 3. Aortic arch angiogram. Medical necessity: Dilated aortic root, and need to rule out aortic aneurysm. 4. Unsuccessful PCI to the ostial OM1. 5. Unsuccessful PCI to the distal RCA. COMPLICATIONS: None. SPECIMENS: None. ESTIMATED BLOOD LOSS: 10 mL ANESTHESIA: Conscious sedation ANTICOAGULATION: IV heparin CONTRAST: 180 mL. FLUOROSCOPY: 34.3 minutes. FLOUROSCOPY DOSE: [id number] [id number]. PROCEDURE DETAILS: The patient is a 73 male and was brought to the woodworking shop laborer after informed consent was taken. All the risks and complications were explained in detail; this included the risk of bleeding, vascular damage, stroke, NE and even . The patient was draped and prepped in the usual sterile fashion. Fareed's test was abnormal therefore access was gained in the right femoral artery with a 6 Yoruba sheath. Coronary angiography and left heart catheterization was performed with a JR4 and JL4 catheter. Aortic arch angiogram was performed with a pigtail catheter. FINDINGS: 1.Left main: mild ostial disease. 2.LAD: severe calcified artery with significant ectasia but no focal stenosis. 3.Left circumflex artery: short left circumflex artery and ostial BREASTER of OM1 with left to left collaterals. 4.RCA: severe athero-ectasia with calcification of the entire vessel with slow flow. Severe subtotal occlusion with significant calcification in the distal RCA just before the bifurcation. Large PL branch with severe 70 to 80 percent stenosis of the proximal segment. slow flow with dye hang-up in the entire length of the RCA. 5.Left heart catheterization: LV 119/11 mmHg. LVEDP 25 mmHg. Aortic pressure 117/81 mmHg. Normal LV function with no significant wall motion abnormalities. No gradient across the aortic valve. 6. Aortic arch angiogram showed mildly dilated aortic root, tortuous ascending aorta however there was no significant aneurysmal dilatation or dissection. Patent proximal segments of the great arteries. RECOMMENDATIONS: PCI to the OM1 and RCA is recommended. INTERVENTION DETAILS: EBU 4.0 guide catheter, whisper extra-support guidewire, IV heparin for anticoagulation. Patient was already given aspirin and Brilinta bolus. We tried to cross the lesion in the ostium of the OM 1 but was not able to cross with the wire. We then took a emerge 2.0 x 12 balloon for support but due to short left circumflex artery the balloon tip will keep pushing the wire into the LAD. We then took the balloon out and took a guide liner for support. The same thing happened that the guide liner will not take the turn into the left circumflex artery and will continue to push into the LAD. We therefore stopped and took another angiogram at the end which showed no vascular complication. The next step was to intervene on the RCA. We took a JR4 catheter and the guide liner. We used a new whisper wire but were not able to cross the lesion in the distal RCA with the without balloon help. We attempted numerous times but were unsuccessful to cross the lesion in the distal RCA. Fluoroscopy time was already 34 minutes and we had already used 180 mL of contrast, therefore we decided to stop. ACT was done once which was 196 seconds. Further heparin was given. Post-angiogram revealed no vascular complication. patient converted to sinus rhythm during the procedure. He tolerated the procedure well and did not have any complications. CONCLUSIONS: 1. severe athero-ectasia and calcified lesions in the RCA as described above. No focal stenosis in the LAD. 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 2. Unsuccessful PCI of the OM1 and distal RCA since we were not able to cross the lesions with a wire. 3. I discussed with Dr. Amandeep Cosme at [facility] and he will accept the patient for high risk PCI with surgical backup. I discussed with the patient and family and they are agreeable to transfer to [facility]. Jesu Sanders MD, FACP, FACC, [facility] Interventional Cardiology Chris SANDERS MD Oct 19, 2018 13:03
--- NOTE | 2018-10-19 13:19 | Cardiology Discharge Summary ---
Diagnosis/Chief Complaint Date of Admission Oct 19, 2018 at 07:30 Date of Discharge 10/19/2018 Admission Diagnosis non-STEMI, atrial fibrillation with rapid ventricular rate Final/Discharge Diagnosis non-STEMI, atrial fibrillation with rapid ventricular rate, unsuccessful PCI to OM1 and RCA. Chief Complaint/HPI Chief Complaint/HPI This is a 73-year-old gentleman who has history of diabetes, hypertension and hyperlipidemia. He presents to the ER at 4:30 in the morning with complaints of chest pain. He is been having left sided chest pain since yesterday. Moderate intensity. Radiation to the left arm. Improvement with 2 nitroglycerin. No associated other cardiac symptoms including shortness of breath, palpitation, syncope or near syncope. Remote history of a negative stress test. No past cardiac history. He has a history of hiatal hernia and reflux. He was also found to have atrial fibrillation with rapid ventricular rate in the ER. 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 He follows with Dr. Sawyer for internal medicine. Discharge Summary Procedures coronary angiography showed chronic total occlusion of OM1. Severe subtotal calcified occlusion of the distal RCA. However the RCA has significant athero- ectasia with calcification. Unsuccessful PCI since we were not able to cross with the wire the OM1 and the distal RCA. Discharge Physical Examination normal. Hospital Course Was the Problem List Reviewed?: Yes patient converted to sinus rhythm during the left heart catheterization. No further issues. Pending Labs Laboratory Tests 10/19/18 06:25: Prothrombin Time 13.1, INR Comment 1.0, Activated Partial Thromboplast Time 33, Sodium Level 138, Potassium Level 3.6, Chloride Level 99, Carbon Dioxide Level 28, Anion Gap 11, Blood Urea Nitrogen 15, Creatinine 0.88, Estimat Glomerular Filtration Rate > 60, BUN/Creatinine Ratio 17, Glucose Level 122, Calcium Level 10.0, Corrected Calcium 9.8, Magnesium Level 1.7, Total Bilirubin 0.7, Aspartate Amino Transf (AST/SGOT) 25, Alanine Aminotransferase (ALT/SGPT) 23, Alkaline Phosphatase 92, Myoglobin 62.2, Troponin I 0.508, Total Protein 7.2, Albumin 4.2 10/19/18 06:32: White Blood Count 13.9, Red Blood Count 5.43, Hemoglobin 16.2, Hematocrit 49, Mean Corpuscular Volume 91, Mean Corpuscular Hemoglobin 30, Mean Corpuscular Hemoglobin Concent 33, Red Cell Distribution Width 14.8, Platelet Count 265, Mean Platelet Volume 10.9, Neutrophils (%) (Auto) 58, Lymphocytes (%) (Auto) 32, Monocytes (%) (Auto) 8, Eosinophils (%) (Auto) 1, Basophils (%) (Auto) 0, Neutrophils # (Auto) 8.1, Lymphocytes # (Auto) 4.5, Monocytes # (Auto) 1.1, Eosinophils # (Auto) 0.2, Basophils # (Auto) 0.0 Discussion & Recommendations Discussion I discussed at length with Dr. Amandeep Cosme at [facility] who has very kindly accepted the patient for high risk PCI attempt. I discussed at length with the patient and family and they agree for the transfer as well. Follow up appt.: follow-up after hospitalization at [facility]. Dicharge Diet: Cardiac Diet Activity as Tolerated: Yes Home Medications Reviewed patient Home Medication Reconciliation performed by pharmacy medication reconciliations event crew technician and/or nursing. Patients Allergies have been reviewed. Discharge Home Medications: Reviewed and agree with Discharge Medication list on patient's Discharge Instruction sheet Condition at discharge stable. Instructions to patient/family discussed at length with the patient and family. Clinical Quality Measures AMI/AHF: ASA po Prior to arrival: No DVT/VTE Risk/Contraindication: Risk Factor Score Per Nursin RFS Level Per Nursing on Admit: 4+=Very High Chris HUTCHINS MD Oct 19, 2018 13:19
--- NOTE | 2018-10-19 13:45 | NUR ---
ASSUMING CARE OF PATIENT AT THIS TIME. REPORT RECEIVED FROM JOÃO COOPER. RT GROIN ASSESS AND IS BENIGN. 10 LB SAND BAG APPLIED PRECAUTION. PT DENIES PAIN OR COMPLAINTS AT THIS TIME. VSS.
--- NOTE | 2018-10-19 16:13 | NUR ---
Report called to Kristen MOYER at [facility] @ [phone]. Pt will go to room 227-1. [facility] notified for transport.
--- NOTE | 2018-10-19 17:18 | NUR ---
EMS ARRIVES TO TRANSPORT PATIENT TO [facility]. PT TRANSFERRED TO EMS [facility] WITHOUT DIFFICULTIES. VITALS REMAIN STABLE AND PATIENT HAS NO COMPLAINTS. ALL PATIENTS PERSONAL BELONGINGS GIVEN TO PT .
[2018-10-19] MEDS ORDERED: TICAGRELOR 90 MG TABLET (BRILINTA) PO SCH (21:00)
[2018-10-20] MEDS ORDERED: ASPIRIN E.C. 81 MG (ECOTRIN) TAB PO SCH (09:00)
== END 2018-10-19 17:21 | disposition short-term general hospital (02) | DRG 282 ==
LOC: EDUNIT# 06:19 → ER 06:21 → ICU 07:30
PROVIDERS: ADMIT Internal Medicine; ATTEND Internal Medicine
PROC: 02JY3ZZ Inspection of Great Vessel, Percutaneous Approach (ICD-10-PCS; principal; 2018-10-19)
PROC: 4A023N7 Measurement of Cardiac Sampling and Pressure, Left Heart, Percutaneous Approach (ICD-10-PCS; 2018-10-19)
PROC: B2111ZZ Fluoroscopy of Multiple Coronary Arteries using Low Osmolar Contrast (ICD-10-PCS; 2018-10-19)
PROC: B2151ZZ Fluoroscopy of Left Heart using Low Osmolar Contrast (ICD-10-PCS; 2018-10-19)
PROC: B3101ZZ Fluoroscopy of Thoracic Aorta using Low Osmolar Contrast (ICD-10-PCS; 2018-10-19)
DX: I21.4 Non-ST elevation (NSTEMI) myocardial infarction (principal); I25.10 Atherosclerotic heart disease of native coronary artery without angina pectoris; I25.82 Chronic total occlusion of coronary artery; I77.89 Other specified disorders of arteries and arterioles; I48.0 Paroxysmal atrial fibrillation; I10 Essential (primary) hypertension; E11.9 Type 2 diabetes mellitus without complications; G47.30 Sleep apnea, unspecified; E78.5 Hyperlipidemia, unspecified; K21.9 Gastro-esophageal reflux disease without esophagitis; K44.9 Diaphragmatic hernia without obstruction or gangrene; N40.0 Benign prostatic hyperplasia without lower urinary tract symptoms; E66.9 Obesity, unspecified; Z68.33 Body mass index [BMI] 33.0-33.9, adult
CPT/HCPCS: 36415; 71045; 80053; 83735; 83874; 84484; 85025; 85347; 85610; 85730; 87081; 93005; 93041; 93306; 93458; 93567; 96361; 96374

== ENCOUNTER 2018-11-21 10:06 | Outpatient (RCR) | payer MEDICARE, OTHER | END 2019-02-01 | disposition home or self-care (01) | LOC: CR 10:06 | PROVIDERS: ATTEND Internal Medicine | DX: Z48.812 Encounter for surgical aftercare following surgery on the circulatory system (principal); I25.2 Old myocardial infarction; Z95.5 Presence of coronary angioplasty implant and graft | CPT/HCPCS: 93798 ==

== ENCOUNTER → 2019-01-16 | Outpatient (CLI) | payer MEDICARE, OTHER ==
[~2019-01-16] MED LIST changes: +OMEP-280 PO; -OMEP20CA13 PO; +SIMV20TA26 PO; -SIMV20TA3 PO; -TAMS0.4C98 PO; +TMSL.4C PO
--- NOTE | 2019-01-16 17:08 | Diagnostic Imaging Report ---
PROCEDURE: US carotid duplex, bilateral. TECHNIQUE: Multiple real-time grayscale images were obtained over the carotid arteries in various projections, bilaterally. Additional spectral analysis and color Doppler duplex images were also obtained. INDICATION: Near syncope. COMPARISON: There are no prior studies available for comparison. FINDINGS: There is a moderate amount of hard and soft plaque formation in both carotid bifurcations. The flow velocities fail to show any sign of a hemodynamically significant stenosis of the common or internal carotid arteries. Both vertebral arteries are noted and there was antegrade flow bilaterally. IMPRESSION: There is atherosclerosis disease involving both carotid systems, but there is no evidence for a hemodynamically significant stenosis of the common or internal carotid arteries. Parameters based on the consensus panel Chavez-Scale and Doppler ultrasound criteria published December 2002, Radiology, Volume 229. DOPPLER (peak systolic velocity M/S Right Left CCA ICA Proximal ICA Mid ICA Distal RATIO ECA VERT Dictated by: Dictated on workstation # [id number]
== END ==
LOC: RAD 10:11
PROVIDERS: ATTEND Internal Medicine
DX: I65.23 Occlusion and stenosis of bilateral carotid arteries (principal); K13.0 Diseases of lips; L57.0 Actinic keratosis; M46.06 Spinal enthesopathy, lumbar region
CPT/HCPCS: 93880

== ENCOUNTER → 2021-03-02 | Outpatient (CLI) | payer MEDICARE, OTHER ==
[~2021-03-02] MED LIST changes: +ASPI-1238 PO; -ASPI-983 PO; -CYAN500T62 PO; +CYAN500T8 PO; -HYDR-3876 PO; +HYDR-3920 PO; -MECL-106 PO; +MECL-149 PO; +MONT-40 PO; -MONT10TA24 PO; -OMEP-280 PO; +OMEP20CA18 PO; +SODI0.5GEL TP; -SODI14.12 TP; +TOLT2TAB19 PO; -TOLT2TAB5 PO
--- NOTE | 2021-03-02 16:42 | Diagnostic Imaging Report ---
Clinical indication: Patient with dizziness. Comparison: Ultrasound of the carotid arteries dated 01/16/2019. Exam: Real-time ultrasound carotid Doppler duplex imaging is performed bilaterally with multiple real-time grayscale images obtained in various projections. Additional spectral analysis and color Doppler duple images were also obtained. Peak systolic velocity, ICA/CCA peak systolic ratio, spectral analysis and vascular morphology are studied. Findings: ARTERY VELOCITY Right Left CCA 0.69 m/s 0.98 m/s ICA 0.61 m/s 0.57 m/s ECA 0.81 m/s 0.71 m/s ICA/CCA 0.88 0.58 VERT. ART Antegrade Antegrade There is slight progression of mild bilateral carotid artery atherosclerotic disease. No grayscale evidence of significant stenosis. Impression: There is no grayscale or Doppler evidence of significant vascular stenosis. Dictated by: Dictated on workstation # [id number]
== END ==
LOC: RAD 14:20
PROVIDERS: ATTEND Internal Medicine
DX: R42 Dizziness and giddiness (principal); M99.03 Segmental and somatic dysfunction of lumbar region; M99.04 Segmental and somatic dysfunction of sacral region; M70.71 Other bursitis of hip, right hip; M46.06 Spinal enthesopathy, lumbar region; E11.9 Type 2 diabetes mellitus without complications; I10 Essential (primary) hypertension
CPT/HCPCS: 93880

== ENCOUNTER → 2021-12-11 | Outpatient (CLI) | payer MEDICARE, OTHER ==
--- NOTE | 2021-12-11 16:28 | Diagnostic Imaging Report ---
INDICATION: Bilateral leg pain, peripheral vascular disease. TECHNIQUE: The bilateral lower extremity arterial Doppler study was performed in the routine fashion with color flow Doppler and waveform analysis. COMPARISON: There is no prior study for comparison. FINDINGS: Flow is multiphasic throughout the lower extremities except for monophasic in the right dorsalis pedis. There is no focal high velocity jet or occluded segment. IMPRESSION: No evidence of significant arterial stenosis or major vessel occlusion. There is conversion of flow to monophasic in the right dorsalis pedis suggesting some small vessel disease. Dictated by: Dictated on workstation # [id number]
== END ==
LOC: RAD 13:36
PROVIDERS: ATTEND Internal Medicine
DX: I73.9 Peripheral vascular disease, unspecified (principal)
CPT/HCPCS: 93925

== ENCOUNTER 2021-12-14 19:40 | Emergency (ER) | payer MEDICARE, OTHER ==
[~2021-12-14] VITALS: Ht 180 cm; Wt 112.0 kg
[2021-12-14] MEDS ORDERED: LACTATED RINGERS 1,000 ML IV ONE (20:00)
[2021-12-14] MEDS ORDERED: IBUPROFEN 800 MG (MOTRIN) TAB PO ONE (20:00)
[2021-12-14 20:05] LABS: BASOPHILS % (AUTO) 0 % (0-10); EOSINOPHILS % (AUTO) 0 % (0-10); HEMATOCRIT 43 % (40-54); HEMOGLOBIN 14.3 g/dL (13.3-17.7); LYMPHOCYTES # (AUTO) 0.8 10^3/uL (1.0-4.0); LYMPHOCYTES % (AUTO) 7 % (12-44); MEAN CORPUSCULAR HEMOGLOBIN 31 pg (25-34); MEAN CORPUSCULAR HGB CONC 34 g/dL (32-36); MEAN CORPUSCULAR VOLUME 91 fL (80-99); MEAN PLATELET VOLUME 10.2 fL (9.0-12.2); MONOCYTES # (AUTO) 1.2 10^3/uL (0.0-1.0); MONOCYTES % (AUTO) 11 % (0-12); NEUTROPHILS # (AUTO) 8.6 10^3/uL (1.8-7.8); NEUTROPHILS % (AUTO) 81 % (42-75); PLATELET COUNT 242 10^3/uL (130-400); WHITE BLOOD COUNT 10.7 10^3/uL (4.3-11.0)
--- NOTE | 2021-12-14 20:11 | Diagnostic Imaging Report ---
INDICATION: COVID+ COMPARISON: 10/19/2018. FINDINGS: Single frontal view of the chest demonstrates normal heart size and pulmonary vascularity. The lungs show patchy left basilar airspace opacities, but are otherwise clear. No large pleural effusion or pneumothorax is seen. The visualized osseous structures show no acute abnormalities. IMPRESSION: Probable patchy left basilar atelectasis. Dictated by: Dictated on workstation # [id number]
[2021-12-14] MEDS ORDERED: ACETAMINOPHEN 500 MG TAB (TYLENOL) PO ONE (20:15)
[2021-12-14 20:16] LABS: ALBUMIN 3.9 GM/DL (3.2-4.5); POTASSIUM 3.7 MMOL/L (3.6-5.0)
[2021-12-14 20:17] LABS: CALCIUM 9.6 MG/DL (8.5-10.1)
[2021-12-14 20:18] LABS: TOTAL PROTEIN 6.7 GM/DL (6.4-8.2)
--- NOTE | 2021-12-14 20:19 | ED Cough/URI ---
General Chief Complaint: COVID19 Suspect/Confirmed Stated Complaint: COVID POSITIVE, FEVER Nursing Triage Note: FEVER, WEAKNESS, COUGH, COVID + 12/13/21 Source: patient History of Present Illness Date Seen by Provider: Dec 14, 2021 Time Seen by Provider: 19:48 Initial Comments PT ARRIVES VIA POV FROM HOME WITH -- IN WAITING ROOM BEGAN GETTING SICK A FEW DAYS AGO, AND TESTED + FOR COVID ON Saturday12/11/21 PT BEGAN GETTING SICK TODAY WITH: -NON-PRODUCTIVE COUGH -FEVER--TEMP 101.5 JUST PRIOR TO ARRIVAL--HAS TAKEN A TOTAL OF 3 TYLENOL PILLS TODAY, NOTHING ELSE FOR FEVER -GENERALIZED WEAKNESS WENT TO DR. DAVID'S OFFICE TODAY AND TESTED + FOR COVID, AND WAS PRESCRIBED MOLNUIPIRAVIR AND CEFDINIR. PT HAS HAD 1 DOSE OF EACH PT HAS NOT HAD ANYTHING ELSE FOR SYMPTOMS NO SHORTNESS OF BREATH NO CHEST PAIN NO SWELLING IN LEGS/ FEET OR PAIN IN CALVES NO GI SYMPTOMS NO HEADACHE NO BODY ACHES NO PAIN ANYWHERE PT HAS NOT HAD COVID OR FLU VACCINES PT HAD COVID IN FEBRUARY OF THIS YEAR ALSO. WAS TREATED WITH PAXLOVID, NO HOSPITALIZATION PT HAS MULTIPLE MEDICAL PROBLEMS INCLUDING CAD WITH STENTS X 4, HTN, AND DIABETES PCP: DR. DAVID Allergies and Home Medications Allergies Coded Allergies: pseudoephedrine (Verified Adverse Reaction, Mild, passed out, 10/19/18) Patient states the only thing he has had a reaction to is the advil cold and sinus he received at a conference once and it made him pass out, he wishes to not receive this medication Patient Home Medication List Home Medication List Reviewed: Yes Cholecalciferol (Vitamin D3) (Vitamin D3) 2,000 Unit Capsule, 2,000 UNIT PO DAILY, (Reported) Entered as Reported by: JESSICA JUAN on 02/20/16 09 Cyanocobalamin (Vitamin B-12) (Vitamin B-12) 500 Mcg Tablet, 500 MCG PO DAILY, (Reported) Entered as Reported by: JESSICA JUAN on 02/20/16 09 Dexamethasone (Decadron) 6 Mg Tablet, 6 MG PO DAILY Prescribed by: CLAUDIO KEARNEY on 12/14/211 Diclofenac Sodium (Voltaren) 100 Gm Gel..gram., TOP BID PRN for PAIN, (Reported) Entered as Reported by: JESSICA JUAN on 02/20/16 0908 Diltiazem HCl (Dilt-Xr) 240 Mg Cap.er.deg, 240 MG PO DAILY, (Reported) Entered as Reported by: JESSICA JUAN on 02/20/16 0855 Fluticasone Propionate (Fluticasone Propionate) 16 Gm [place].susp, 2 SPRAY NS BID, (Reported) Entered as Reported by: JESSICA JUAN on 02/20/16 0855 Hydrocodone/Acetaminophen (Lorcet Hd 10-325 mg Tablet) 1 Each Tablet, 1-2 EACH PO Q4H Prescribed by: KINGSTON BURCIAGA on 02/28/16 1246 Losartan/Hydrochlorothiazide (Losartan-Hctz 100-25 mg Tab) 1 Each Tablet, 1 TAB PO DAILY, (Reported) Entered as Reported by: SUZANNE SHAHID on 02/19/16 1314 Meclizine HCl (Meclizine HCl) 25 Mg Tablet, 25 MG PO BID, (Reported) Entered as Reported by: SUZANNE SHAHID on 02/19/16 131 Meloxicam (Meloxicam) 15 Mg Tablet, 15 MG PO HS, (Reported) Entered as Reported by: SUZANNE SHAHID on 02/19/16 1314 Metformin HCl (Metformin HCl) 500 Mg Tablet, 500 MG PO BID WITH MEALS, (Reported) Entered as Reported by: SUZANNE SHAHID on 02/19/16 131 Montelukast Sodium (Montelukast Sodium) 10 Mg Tablet, 10 MG PO DAILY, (Reported) Entered as Reported by: SUZANNE SHAHID on 02/19/16 1314 Nitrofurantoin Macrocrystal (Macrodantin) 100 Mg Capsule, 100 MG PO BID Prescribed by: REJI SMITH on 03/14/16 0931 [place] 3 Polyunsat Fatty Acids (Fish Oil 1,000 mg Capsule) 1,000 Mg Cap, 1,000 MG PO DAILY, (Reported) Entered as Reported by: JESSICA JUAN on 02/20/16 09 Omeprazole (Omeprazole) 20 Mg Capsule.dr, 20 MG PO DAILY, (Reported) Entered as Reported by: SUZANNE SHAHID on 02/19/16 1314 Phenazopyridine HCl (Pyridium) 200 Mg Tablet, 1 TAB PO TID Prescribed by: KINGSTON BURCIAGA on 02/28/16 1203 Propylene Glycol/Peg 400/Pf (Systane Ultra 0.4-0.3% Eye Drp) 1 Each [place], 1 DROP OU BID, (Reported) Entered as Reported by: JESSICA JUAN on 02/20/16 0908 Simvastatin (Simvastatin) 20 Mg Tablet, 20 MG PO DAILY, (Reported) Entered as Reported by: SUZANNE SHAHID on 02/19/16 1314 Sodium Chloride/Aloe Vera ([place] Saline Nasal Gel) 14.1 Gm Gel..gram., TP BID, (Reported) Entered as Reported by: JESSICA JUAN on 02/20/16 0908 Sodium Chloride/Sodium Bicarb (Sinus Rinse Refill Packets) 1 Each Packet, 1 PACKET NS DAILY, (Reported) Entered as Reported by: JESSICA JUAN on 02/20/16 0908 Tamsulosin HCl (Flomax) 0.4 Mg Cap, 0.4 MG PO DAILY Prescribed by: KINGSTON BURCIAGA on 02/28/16 1245 Tolterodine Tartrate (Tolterodine Tartrate) 2 Mg Tablet, 2 MG PO DAILY, (Reported) Entered as Reported by: SUZANNE SHAHID on 02/19/16 1314 Review of Systems Review of Systems Constitutional: see HPI, fever, malaise, weakness EENTM: no symptoms reported Respiratory: cough; No short of breath Cardiovascular: no symptoms reported; No chest pain Gastrointestinal: no symptoms reported Genitourinary: no symptoms reported Musculoskeletal: no symptoms reported Skin: no symptoms reported Psychiatric/Neurological: No Symptoms Reported Hematologic/Lymphatic: No Symptoms Reported Immunological/Allergic: no symptoms reported Past Uiddilb-Yfsten-Mznivh Hx Patient Social History Tobacco Use?: No Substance use?: No Alcohol Use?: No Pt feels they are or have been: No Immunizations Up To Date Tetanus Booster (TDap): Less than 5yrs PED Vaccines UTD: Yes Influenza Vaccine Up-to-Date: Yes; Up-to-Date First/Initial COVID19 Vaccinat: NA Seasonal Allergies Seasonal Allergies: No Past Medical History Surgery/Hospitalization HX: [place], STENT X4, COCHLEAR IMPLANT, H HERNIA, PERLA, HTN, GERD, NIDDM, ARTHRITIS, HIGH CHOLESTEROL Surgeries: Yes (NECK SURGERY, HERNIA, NASAL X3, kidney stone sx) Abdominal, Cardiac, Coronary Stent, Ear Surgery, Nose, Orthopedic, Renal Respiratory: Yes Sleep Apnea Currently Using CPAP: Yes Cardiac: Yes (STENTS X 4) Coronary Artery Disease, High Cholesterol, Hypertension Neurological: No Reproductive Disorders: No Sexually Transmitted Disease: No HIV/AIDS: No Genitourinary: Yes Kidney Stones Gastrointestinal: Yes (hiatal hernia) Gastroesophageal Reflux, Hiatal Hernia Musculoskeletal: Yes (arthritis; C-SPINE SURGERY) Degenerate Disk Disease, Arthritis, Chronic Back Pain Endocrine: Yes Diabetes, Non-Insulin dep HEENT: Yes (COCHLEAR IMPLANT) Loss of Vision: Bilateral Hearing Impairment: Hard of Hearing Cancer: No Psychosocial: No Integumentary: No Blood Disorders: No Adverse Reaction/Blood Tranf: No Family Medical History DENIES PT HAD COVID IN FEBRUARY 2021--[place] WITH PAXLOVID HAD COVID AGAIN 12/14/2021--[place] WITH MOLNUPIRAVIR. Physical Exam Vital Signs - First Documented 12/14/21 19:44 Temp 38.8 Pulse 90 Resp 18 B/P (MAP) 125/70 (88) Pulse Ox 94 O2 Delivery Nasal Cannula O2 Flow Rate 2.00 Capillary Refill : Less Than 3 Seconds Height: 5'11.00" Weight: 243lbs. 0oz. [id number]; 34.00 BMI Method:Stated General Appearance: WD/WN, no apparent distress, other (SOME MILD GENERALIZED WEAKNESS. 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, no motor/sensory deficits, alert, oriented x 3 Skin: warm/dry (VERY WARM AND FLUSHED); No rash Focused Exam Sepsis Stage: Sepsis Possible Source: Pulmonary Lactate Level 12/14/21 19:58: Lactic Acid Level 1.19 Time of Focused Exam: 21:15 Respiratory: Normal Breath Sounds, No Accessory Muscle Use, No Respiratory Distress Cardiovascular: Regular Rate, Rhythm, No Edema, No Murmur Capillary Refill: Less Than 3 Seconds Skin: normal color, warm/dry Lactic Acid Level Laboratory Tests Test 12/14/21 19:58 Lactic Acid Level 1.19 MMOL/L (0.50-2.00) Within 3hrs of presentation: Admin fluids, Admin ABX, Blood cultures prior to ABX's, Focus exam, Lactate level, Other Progress/Results/Core Measures Suspected Sepsis SIRS Temperature: Pulse: 90 Respiratory Rate: 18 Laboratory Tests 12/14/21 19:58: White Blood Count 10.7 Blood Pressure 125 /70 Mean: 88 12/14/21 19:58: Lactic Acid Level 1.19 Laboratory Tests 12/14/21 19:58: Creatinine 1.06, Platelet Count 242, Total Bilirubin 0.7 Results/Orders Lab Results Laboratory Tests Test 12/14/21 19:58 Range/Units White Blood Count 10.7 4.3-11.0 10^3/uL Red Blood Count 4.65 4.30-5.52 10^6/uL Hemoglobin 14.3 13.3-17.7 g/dL Hematocrit 43 40-54 % Mean Corpuscular Volume 91 80-99 fL Mean Corpuscular Hemoglobin 31 25-34 pg Mean Corpuscular Hemoglobin Concent 34 32-36 g/dL Red Cell Distribution Width 13.8 10.0-14.5 % Platelet Count 242 130-400 10^3/uL Mean Platelet Volume 10.2 9.0-12.2 fL Immature Granulocyte % (Auto) 1 % Neutrophils (%) (Auto) 81 H 42-75 % Lymphocytes (%) (Auto) 7 L 12-44 % Monocytes (%) (Auto) 11 0-12 % Eosinophils (%) (Auto) 0 0-10 % Basophils (%) (Auto) 0 0-10 % Neutrophils # (Auto) 8.6 H 1.8-7.8 10^3/uL Lymphocytes # (Auto) 0.8 L 1.0-4.0 10^3/uL Monocytes # (Auto) 1.2 H 0.0-1.0 10^3/uL Eosinophils # (Auto) 0.0 0.0-0.3 10^3/uL Basophils # (Auto) 0.0 0.0-0.1 10^3/uL Immature Granulocyte # (Auto) 0.1 0.0-0.1 10^3/uL Neutrophils % (Manual) 83 % Lymphocytes % (Manual) 10 % Monocytes % (Manual) 7 % Blood Morphology Comment NORMAL Erythrocyte Sedimentation Rate 16 0-30 MM/HR D-Dimer 0.62 H 0.00-0.49 UG/ML Sodium Level 135 135-145 MMOL/L Potassium Level 3.7 3.6-5.0 MMOL/L Chloride Level 101 98-107 MMOL/L Carbon Dioxide Level 24 21-32 MMOL/L Anion Gap 10 5-14 MMOL/L Blood Urea Nitrogen 23 H 7-18 MG/DL Creatinine 1.06 0.60-1.30 MG/DL Estimat Glomerular Filtration Rate 73 BUN/Creatinine Ratio 22 Glucose Level 123 H 70-105 MG/DL Lactic Acid Level 1.19 0.50-2.00 MMOL/L Calcium Level 9.6 8.5-10.1 MG/DL Corrected Calcium 9.7 8.5-10.1 MG/DL Total Bilirubin 0.7 0.1-1.0 MG/DL Aspartate Amino Transf (AST/SGOT) 15 5-34 U/L Alanine Aminotransferase (ALT/SGPT) 16 0-55 U/L Alkaline Phosphatase 71 40-136 U/L C-Reactive Protein High Sensitivity 6.61 H 0.00-0.50 MG/DL Total Protein 6.7 6.4-8.2 GM/DL Albumin 3.9 3.2-4.5 GM/DL Procalcitonin 0.06 <0.10 NG/ML My Orders Orders - CLAUDIO KEARNEY DO Ed Iv/Invasive Line Start (12/14/21 19:48) O2 (12/14/21 19:48) Monitor-Rhythm Ecg Trace Only (12/14/21 19:48) Chest 1 View, Ap/Pa Only (12/14/21 19:48) Ed Iv/Invasive Line Start (12/14/21 19:48) Lactated Ringers (Lr 1000 Ml Iv Solution (12/14/21 20:00) Lactic Acid Analyzer (12/14/21 19:48) Procalcitonin (Pct) (12/14/21 19:48) Cbc With Automated Diff (12/14/21 19:48) Comprehensive Metabolic Panel (12/14/21 19:48) Fibrin Degradation Products (12/14/21 19:48) Hs C Reactive Protein (12/14/21 19:48) Erythrocyte Sedimentation Rate (12/14/21 19:48) Blood Culture (11/3/22 19:48) Ekg Tracing (12/14/21 19:48) Ibuprofen Tablet (Motrin Tablet) (12/14/21 20:00) Dexamethasone Injection (Decadron Inje (12/14/21 20:15) Acetaminophen Tablet (Tylenol Tablet) (12/14/21 20:15) Manual Differential (12/14/21 19:58) Vital Signs Adult Sepsis Patie Q15M (12/14/21 20:19) Remove Rings In Anticipation O (12/14/21 20:19) Ct Angio Chest W (12/14/21 21:20) Ceftriaxone 1 Gm Pre-Mix (Rocephin 1 Gm (12/14/21 21:45) Iohexol Injection (Omnipaque 350 Mg/Ml 1 (12/14/21 22:00) Sodium Chloride Flush (Catheter Flush Sy (12/14/21 22:00) Ns (Ivpb) (Sodium Chloride 0.9% Ivpb Bag (12/14/21 22:00) Medications Given in ED Vital Signs/I&O 12/14/21 12/14/21 12/14/21 19:44 19:50 22:58 Temp 38.8 Pulse 90 86 Resp 18 14 B/P (MAP) 125/70 (88) 137/81 Pulse Ox 94 94 91 O2 Delivery Nasal Cannula Nasal Cannula Room Air O2 Flow Rate 2.00 2.00 12/15/21 00:00 Intake Total 1050 ml Balance 1050 ml Capillary Refill : Less Than 3 Seconds Blood Pressure Mean: 88 Progress Note : Progress Note PLACED IN ISOLATION ROOM PPE WORN AT ALL TIMES SEPSIS PROTOCOL INITIATED. GIVEN: -IV FLUIDS -TYLENOL AND MOTRIN FOR FEVER -DECADRON -ANTIBIOTICS O2 SAT 91-92% ON ROOM AIR, UP TO 96% ON 2L/NC NO COUGH NO DYSPNEA NO HYPOTENSION OR TACHYCARDIA FEELS MUCH BETTER AT DISMISSAL O2 SATS 93% ON ROOM AIR AT DISMISSAL, THEN DROPPED TO 89-91% ON ROOM AIR. RT AND DME CONTACTED TO ASSIST WITH GETTING SET UP WITH HOME O2 TEMP DOWN PT IS ANXIOUS TO GO HOME. PT REFUSES HOME O2. STRONGLY ENCOURAGED HIM TO STAY AND GET SET UP WITH HOME O2 AND HE REFUSES. PT STTES HE HAS A CPAP AT HOME. REFUSAL OF TREATMENT PAPERS SIGNED. NO DETERIORATION IN PT'S CONDITION DURING ER STAY ECG Initial ECG Impression Date: Dec 14, 2021 Initial ECG Impression Time: 20:29 Initial ECG Rate: 83 Initial ECG Rhythm: Normal Sinus Initial ECG Impression: Nonspecific Changes Diagnostic Imaging Comments CXR--PER RADIOLOGIST REPORT AT 2018 FINDINGS: Single frontal view of the chest demonstrates normal heart size and pulmonary vascularity. The lungs show patchy left basilar airspace opacities, but are otherwise clear. No large pleural effusion or pneumothorax is seen. The visualized osseous structures show no acute abnormalities. IMPRESSION: Probable patchy left basilar atelectasis. CT CHEST ANGIOGRAM--PER RADIOLOGIST REPORT AT 2216 COMPARISON: None. FINDINGS: No abnormal intraluminal filling defect is seen within the pulmonary arteries to the 1st subsegmental division. Thoracic aorta shows moderate scattered calcified atherosclerosis. By NASCET criteria, there is no focal significant stenosis. There is no evidence of dissection or aneurysm. Heart is mildly enlarged. There is prominent calcified coronary atherosclerosis. No large pericardial effusion is seen. Benign calcified mediastinal lymph nodes are noted. No pathologically enlarged or morphologically abnormal adenopathy is identified within the mediastinum, derrick or axilla. Evaluation of lung no is mildly degraded due to motion artifact. Small bibasilar effusions and associated atelectasis are noted. Otherwise, lungs appear clear. There is no pneumothorax. Aerated portions of the lungs show no suspicious pulmonary parenchymal masses. Osseous structures show age-related degenerative changes. No lytic or blastic bony lesions are seen. Included portions of the upper abdomen show multiple nonobstructive bilateral renal calculi. Gallstone is noted. There is gallbladder wall thickening and hazy appearance to the serosal surface of the gallbladder. IMPRESSION: 1. No pulmonary embolus. 2. Prominent calcified coronary atherosclerosis with mild cardiomegaly. 3. Small bilateral effusions with associated mild atelectasis. 4. Cholelithiasis with gallbladder wall thickening and shaggy appearance of serosal surface of the gallbladder. Correlation for acute cholecystitis is advised. 5. Multiple punctate bilateral nonobstructive renal calculi. Reviewed: Reviewed by Me Departure Impression Primary Impression: COVID-19 virus infection Disposition: 01 HOME, SELF-CARE Condition: Stable Departure-Patient Inst. Decision time for Depature: 22:17 Referrals: EMILE DAVID DO (PCP/Family) Primary Care Physician Patient Instructions: COVID-19 Home Care/Discharge, Preventing the Spread of an Infectious Disease Add. Discharge Instructions: HOME, REST INCREASE YOUR FLUID INTAKE--WATER, BROTH, JELLO, GATORADE, CLEAR JUICES TYLENOL 1 GRAM 4 TIMES A DAY, PLUS MOTRIN 800 MG 4 TIMES A DAY NEEDED FOR PAIN OR FEVER CONTINUE MOLNUPIRAVIR AND CEFDINIR PRESCRIBED BY YOUR DR QUINTIN DONALDSON FOR COUGH FOLLOW UP WITH DR. DAVID IN 4-5 DAYS IF NO BETTER, RETURN TO ER IF WORSE All discharge instructions reviewed with patient and/or family. Voiced understanding. Scripts Dexamethasone (Decadron) 6 Mg Tablet 6 MG PO DAILY, #10 TAB Prov: CLAUDIO KEARNEY DO 12/14/21 CLAUDIO KEARNEY DO Dec 14, 2021 20:19
[2021-12-14 20:20] LABS: BILIRUBIN,TOTAL 0.7 MG/DL (0.1-1.0)
[2021-12-14 20:22] LABS: CREATININE SERUM 1.06 MG/DL (0.60-1.30)
[2021-12-14 20:28] LABS: ERYTHROCYTE SEDIMENTATION RATE 16 MM/HR (0-30)
[2021-12-14 20:43] LABS: LYMPHOCYTES % (MANUAL) 10 %; MONOCYTES % (MANUAL) 7 %; NEUTROPHILS % (MANUAL) 83 %; RBC MORPH NORMAL
[2021-12-14] MEDS ORDERED: cefTRIAXone 1 GM PRE-MIX 50 ML IV ONE (21:45)
[2021-12-14] MEDS ORDERED: CATHETER FLUSH 10 ML SYR IV PRN (22:00)
[2021-12-14] MEDS ORDERED: NS 100 ML (IVPB) BAG IV ONE (22:00)
[2021-12-14] MEDS ORDERED: IOHEXOL 350 MG/ML 100 ML (OMNIPAQUE 350) VIAL IV ONE (22:00)
--- NOTE | 2021-12-14 22:10 | Diagnostic Imaging Report ---
PROCEDURE: CT angiography of the chest with contrast. TECHNIQUE: Multiple contiguous axial images were obtained through the chest after uneventful bolus administration of intravenous contrast. 3D reconstructed CTA MIP acquisitions were also performed. Auto Exposure Controls were utilized during the CT exam to meet ALARA standards for radiation dose reduction. INDICATION: Fever and cough. Covid positive patient. COMPARISON: None. FINDINGS: No abnormal intraluminal filling defect is seen within the pulmonary arteries to the 1st subsegmental division. Thoracic aorta shows moderate scattered calcified atherosclerosis. By NASCET criteria, there is no focal significant stenosis. There is no evidence of dissection or aneurysm. Heart is mildly enlarged. There is prominent calcified coronary atherosclerosis. No large pericardial effusion is seen. Benign calcified mediastinal lymph nodes are noted. No pathologically enlarged or morphologically abnormal adenopathy is identified within the mediastinum, derrick or axilla. Evaluation of lung no is mildly degraded due to motion artifact. Small bibasilar effusions and associated atelectasis are noted. Otherwise, lungs appear clear. There is no pneumothorax. Aerated portions of the lungs show no suspicious pulmonary parenchymal masses. Osseous structures show age-related degenerative changes. No lytic or blastic bony lesions are seen. Included portions of the upper abdomen show multiple nonobstructive bilateral renal calculi. Gallstone is noted. There is gallbladder wall thickening and hazy appearance to the serosal surface of the gallbladder. IMPRESSION: 1. No pulmonary embolus. 2. Prominent calcified coronary atherosclerosis with mild cardiomegaly. 3. Small bilateral effusions with associated mild atelectasis. 4. Cholelithiasis with gallbladder wall thickening and shaggy appearance of serosal surface of the gallbladder. Correlation for acute cholecystitis is advised. 5. Multiple punctate bilateral nonobstructive renal calculi. Dictated by: Dictated on workstation # [id number]
[2021-12-14] MEDS ORDERED: DEXA6TAB6 PO (22:21)
[2021-12-14 22:58] VITALS: BP 137/81
== END 2021-12-14 22:58 | disposition home or self-care (01) ==
LOC: EDUNIT# 19:40 → ER 19:41
DX: U07.1 COVID-19 (principal); Z73.0 Burn-out; Z28.310 Unvaccinated for COVID-19; Z87.09 Personal history of other diseases of the respiratory system
CPT/HCPCS: 36415; 71045; 71275; 80053; 83605; 84145; 85007; 85027; 85379; 85652; 86141; 87040; 93005; 93041

== ENCOUNTER 2021-12-16 00:51 | Inpatient (IN) | payer MEDICARE, OTHER ==
[2021-12-16] VITALS (11 sets, daily range): BP systolic 124–150; BP diastolic 75–100
[~2021-12-16] VITALS: Ht 180.3 cm; Wt 92.6 kg
[~2021-12-16 00:51] MED LIST changes: +DEXA6TAB6 PO
[2021-12-16] MEDS ORDERED: NS IV 1000 ML 1,000 ML IV SCH (01:00)
[2021-12-16 01:45] LABS: BASOPHILS % (AUTO) 0 % (0-10); EOSINOPHILS % (AUTO) 0 % (0-10); HEMATOCRIT 42 % (40-54); LYMPHOCYTES # (AUTO) 1.2 10^3/uL (1.0-4.0); LYMPHOCYTES % (AUTO) 9 % (12-44); MEAN CORPUSCULAR HEMOGLOBIN 30 pg (25-34); MEAN CORPUSCULAR HGB CONC 34 g/dL (32-36); MEAN CORPUSCULAR VOLUME 90 fL (80-99); MEAN PLATELET VOLUME 10.4 fL (9.0-12.2); MONOCYTES % (AUTO) 7 % (0-12); NEUTROPHILS # (AUTO) 11.4 10^3/uL (1.8-7.8); NEUTROPHILS % (AUTO) 83 % (42-75); PLATELET COUNT 238 10^3/uL (130-400); WHITE BLOOD COUNT 13.7 10^3/uL (4.3-11.0)
[2021-12-16 01:57] LABS: ALBUMIN 3.6 GM/DL (3.2-4.5); POTASSIUM 3.2 MMOL/L (3.6-5.0)
[2021-12-16 01:58] LABS: CALCIUM 9.6 MG/DL (8.5-10.1)
[2021-12-16 01:59] LABS: TOTAL PROTEIN 6.5 GM/DL (6.4-8.2)
[2021-12-16 02:01] LABS: BILIRUBIN,TOTAL 0.7 MG/DL (0.1-1.0)
[2021-12-16 02:03] LABS: CREATININE SERUM 0.82 MG/DL (0.60-1.30)
[2021-12-16 02:05] LABS: MAGNESIUM 1.3 MG/DL (1.6-2.4)
[2021-12-16 02:37] LABS: INR 1.1 (0.8-1.4); PROTHROMBIN TIME PATIENT 14.2 SEC (12.2-14.7)
[2021-12-16] MEDS ORDERED: CEFEPIME INJECTION 1,000 MG in NS (IVPB) 50 ML IV ONE (03:15)
[2021-12-16] MEDS ORDERED: RT-ALBUTEROL/IPRATROPIUM 3 ML (DUONEB) VIAL INH ONE (03:15)
[2021-12-16] MEDS ORDERED: MAGNESIUM 1 GM/100 ML IVPB 100 ML IV ONE (03:15)
[2021-12-16 04:15] LABS: ABG BASE EXCESS 1.4 MMOL/L (-2.5-2.5); ABG OXYGEN SATURATION 100 % (94-100); ABG PCO2 40 MMHG (35-45); ABG PH 7.42 (7.37-7.43); ABG PO2 156 MMHG (79-93); ABG TCO2 26.3 MMOL/L (21.0-31.0)
[2021-12-16 04:16] LABS: ALLENS TEST YES-POS; VENTILATOR NO
[2021-12-16 04:17] LABS: PATIENT TEMP 38.5
[2021-12-16] MEDS ORDERED: LACTATED RINGERS 1,000 ML IV ONE (05:21)
[2021-12-16 05:43] LABS: BASOPHILS % (AUTO) 0 % (0-10); EOSINOPHILS % (AUTO) 0 % (0-10); HEMATOCRIT 43 % (40-54); HEMOGLOBIN 14.1 g/dL (13.3-17.7); LYMPHOCYTES # (AUTO) 0.9 10^3/uL (1.0-4.0); LYMPHOCYTES % (AUTO) 6 % (12-44); MEAN CORPUSCULAR HEMOGLOBIN 30 pg (25-34); MEAN CORPUSCULAR HGB CONC 33 g/dL (32-36); MEAN CORPUSCULAR VOLUME 91 fL (80-99); MEAN PLATELET VOLUME 10.6 fL (9.0-12.2); MONOCYTES # (AUTO) 0.7 10^3/uL (0.0-1.0); MONOCYTES % (AUTO) 5 % (0-12); NEUTROPHILS # (AUTO) 13.4 10^3/uL (1.8-7.8); NEUTROPHILS % (AUTO) 88 % (42-75); PLATELET COUNT 230 10^3/uL (130-400); WHITE BLOOD COUNT 15.1 10^3/uL (4.3-11.0)
[2021-12-16] MEDS ORDERED: ONDANSETRON 4 MG/2 ML (SDV) Z0FRAN IV PRN (06:00)
[2021-12-16] MEDS ORDERED: EPINEPHrine 1 MG INJECTION 4 MG in NS (IVPB) 248 ML IV SCH (06:00)
[2021-12-16] MEDS ORDERED: ACETAMINOPHEN 500 MG TAB (TYLENOL) PO PRN (06:00)
[2021-12-16] MEDS ORDERED: IBUPROFEN 800 MG (MOTRIN) TAB PO PRN (06:00)
[2021-12-16 06:14] LABS: CALCIUM 9.2 MG/DL (8.5-10.1); CREATININE SERUM 0.77 MG/DL (0.60-1.30); MAGNESIUM 1.2 MG/DL (1.6-2.4); POTASSIUM 3.4 MMOL/L (3.6-5.0)
[2021-12-16] MEDS: inSUlin ASPART (NovoLOG) 1 UNIT/0.01 ML (CHARGE PER UNIT) SC SCH ×4 (06:22→21:18)
[2021-12-16] MEDS: MAGNESIUM 1 GM/100 ML IVPB 100 ML IV SCH ×4 (06:46→09:29)
[2021-12-16] MEDS: LACTATED RINGERS 1,000 ML IV SCH ×2 (06:46→15:51)
[2021-12-16] MEDS: VASOPRESSIN INJECTION 20 UNIT in NS (IVPB) 100 ML IV SCH ×2 (06:46→16:16)
[2021-12-16] MEDS: CATHETER FLUSH 10 ML SYR IVP SCH ×3 (06:46→21:19)
[2021-12-16] MEDS: NOREPINEPHRINE 8 MG/250 ML 250 ML IV SCH ×2 (06:47→20:25)
--- NOTE | 2021-12-16 06:54 | Diagnostic Imaging Report ---
HISTORY: Bibasilar atelectasis, dyspnea, COVID positive. COMPARISON: 12/14/2021 TECHNIQUE: Frontal view the chest FINDINGS: Lung volumes are normal. There are airspace opacities in the lung bases and the left midlung. There may be a small left pleural effusion. There is no pneumothorax. The cardiac silhouette is normal in size. Surgical hardware is noted of the cervical spine and the right humeral head. There is aortic atherosclerosis. IMPRESSION: 1. Airspace opacities in the bilateral lungs, consistent with infection. 2. Possible small left pleural effusion. Report was faxed to [facility] by princess at 6:52AM. Dictated by: Dictated on workstation # [id number]
[2021-12-16 07:35] LABS: ABG BASE EXCESS 2.4 MMOL/L (-2.5-2.5); ABG OXYGEN SATURATION 95 % (94-100); ABG PCO2 41 MMHG (35-45); ABG PH 7.43 (7.37-7.43); ABG PO2 66 MMHG (79-93); ABG TCO2 27.8 MMOL/L (21.0-31.0)
[2021-12-16 07:36] LABS: ALLENS TEST POSITIVE; INSPIRED O2 10 L; PATIENT TEMP 36.7; VENTILATOR NO
[2021-12-16] MEDS ORDERED: NS IV 500 ML 500 ML IV PRN (08:00)
[2021-12-16] MEDS ORDERED: KCL 20 MEQ TAB (K-DUR) PO ONE (08:45)
[2021-12-16] MEDS ORDERED: RT-ALBUTEROL HFA 8.5 GM INHALER IH PRN (09:00)
[2021-12-16] MEDS: CEFEPIME 1,000 MG/NS 50 ML IVPB IV SCH ×6 (09:23→21:19)
--- NOTE | 2021-12-16 11:47 | History & Physical-Hospitalist ---
History of Present Illness HPI/Chief Complaint Patient is a 76-year-old male with past medical history of coronary artery disease, hypertension, hyperlipidemia who presented to the emergency department due to hypoxia. He seems slightly confused with why he is here and keeps stating "my ears not right." He is very vague with his symptoms and timeline of when he was ill. He reports that he had COVID back in January though he told the emergency room this was in February. He then states he is unsure if he has COVID now and seems to doubt the diagnosis. We discussed that his oxygen levels have been low and that is what prompted him stay in the emerge ncy department. He is unsure when he started to feel ill but believes it was sometime this week. Reviewing the emergency room note from 12/14 he began feeling sick that day. His was positive for COVID on December 11. He developed a fever and cough. On the his cough is nonproductive but he states yesterday he had a lot of sputum production. He asked me multiple times what he needs to do to be able to get out of the hospital. He is currently on 4 L of oxygen and required BiPAP overnight. We discussed that he will need to stabilize before he can get out of the hospital. We did discuss that he could go home with oxygen if needed but that that would likely not be today as he just got off BiPAP this morning and I would like to see him stable for roughly 24 hours before discharge. Source: patient Date Seen 12/16/21 Time Seen by a Provider: 08:45 Attending Physician Urbano Sawyer DO PCP Admitting Physician: Noemi Parmar MD Attending Physician: Noemi Parmar MD Referring Physician Date of Admission Dec 16, 2021 at 01:00 Home Medications & Allergies Home Medications Reviewed patient Home Medication Reconciliation performed by pharmacy medication reconciliations hardware technician and/or nursing. Patients Allergies have been reviewed. Allergies Allergies Coded Allergies pseudoephedrine (Verified Adverse Reaction, Mild, passed out, 10/19/18) Patient states the only thing he has had a reaction to is the advil cold and sinus he received at a conference once and it made him pass out, he wishes to not receive this medication Past Gcprlgu-Owrxyo-Ofxpgb Hx Patient Social History Marrital Status: Employed/Student: retired Tobacco Use?: No Smoking Status: Never a Smoker Smokeless Tobacco Frequency: Never a User Substance use?: No Alcohol Use?: No Pt feels they are or have been: No Immunizations Up To Date First/Initial COVID19 Vaccinat: none Second COVID19 Vaccination Sandeep: none Tetanus Booster (TDap): Unknown PED Vaccines UTD: Yes Date of Pneumonia Vaccine: Feb 10, 2016 Seasonal Allergies Seasonal Allergies: No Current Status Advance Directives: No Communicates: Verbally Primary Language: Chilean Preferred Spoken Language: Chilean Is interpretation needed?: No Sensory deficits: Hearing impairment Implanted or Applied Medical D: Other Past Medical History Surgeries: Abdominal, Cardiac, Coronary Stent, Ear Surgery (cochlear ), Nose, Orthopedic, Renal Sleep Apnea Currently Using CPAP: Yes Coronary Artery Disease, High Cholesterol, Hypertension Sexually Transmitted Disease: No HIV/AIDS: No Kidney Stones Gastroesophageal Reflux, Hiatal Hernia Degenerate Disk Disease, Arthritis, Chronic Back Pain Diabetes, Non-Insulin dep Loss of Vision: Bilateral Hearing Impairment: Hard of Hearing, Hearing Aide Left Blood Disorders: No Adverse Reaction/Blood Tranf: No Family Medical History Reviewed Nursing Family Hx DENIES PT HAD COVID IN FEBRUARY 2021--[place] WITH PAXLOVID HAD COVID AGAIN 12/14/2021--[place] WITH MOLNUPIRAVIR. Review of Systems Constitutional: fever, malaise Respiratory: cough, phlegm, short of breath Physical Exam Physical Exam Vital Signs Vital Signs - First Documented 12/16/21 00:58 Temp 38.5 Pulse 96 Resp 20 B/P (MAP) 145/102 (116) Pulse Ox 92 O2 Delivery Nasal Cannula O2 Flow Rate 4.00 Capillary Refill : Less Than 3 Seconds Height, Weight, BMI Height: 5'11.00" Weight: 243lbs. 0oz. [id number]; 28.48 BMI Method:Stated General Appearance: No Apparent Distress, Chronically ill, Obese HEENT: PERRL/EOMI, Moist Mucous Membranes Neck: Normal Inspection, Supple Respiratory: No Accessory Muscle Use, No Respiratory Distress, Decreased Breath Sounds, Rhonci Cardiovascular: Regular Rate, Rhythm, No Murmur Gastrointestinal: Normal Bowel Sounds, Non Tender, Soft Extremity: Normal Capillary Refill, No Calf Tenderness, No Pedal Edema Neurologic/Psychiatric: Alert, Oriented x3, Normal Mood/Affect Skin: Normal Color Results Results/Procedures Labs Laboratory Tests 12/16/21 01:25 12/16/21 05:17 12/17/21 04:55 Patient resulted labs reviewed. Imaging: Reviewed Imaging Report Imaging [facility] [place], [place] NAME: TATO DIALLO [facility] REC#: [id number] PT STATUS: ADM IN : 1945 PHYSICIAN: CLAUDIO KEARNEY DO ADMIT DATE: 12/16/21/ICU Signed Date of Exam:12/16/21 CHEST 1 VIEW, AP/PA ONLY HISTORY: Bibasilar atelectasis, dyspnea, COVID positive. COMPARISON: 12/14/2021 TECHNIQUE: Frontal view the chest FINDINGS: Lung volumes are normal. There are airspace opacities in the lung bases and the left midlung. There may be a small left pleural effusion. There is no pneumothorax. The cardiac silhouette is normal in size. Surgical hardware is noted of the cervical spine and the right humeral head. There is aortic atherosclerosis. IMPRESSION: 1. Airspace opacities in the bilateral lungs, consistent with infection. 2. Possible small left pleural effusion. Report was faxed to [facility] by maykel at 6:52AM. Dictated by: Dictated on workstation # [id number] Dict: 12/16/21631 Trans: 12/16/21902 MAYKEL [id number] Interpreted by: CORONA WATSON MD Electronically signed by: CORONA WATSON MD 12/16/21902 Assessment/Plan Admission Diagnosis Acute hypoxic respiratory failure due to COVID19 Admission Status: Inpatient Order (span 2 midnights) Reason for Inpatient Admission: see bloew Assessment and Plan Acute hypoxic respiratory failure due to COVID19 Required BiPAP overnight- currently off Decadron TeleICU consulted, appreciate recs PT/OT IS MAT protocol Mucinex Cefepime HTN CAD HLD Continue home meds as appropriate NIDDMII Anticipate higher blood sugars due to steroids SSI DVT ppx:Lovenox Diagnosis/Problems Diagnosis/Problems (1) CAD (coronary artery disease) Qualifiers: Coronary Disease-Associated Artery/Lesion type: [place] artery [place] vs. transplanted heart: [place] heart Associated angina: without angina Qualified Codes: I25.10 - Atherosclerotic heart disease of [place] coronary artery without angina pectoris (2) HLD (hyperlipidemia) (3) Essential (primary) hypertension (4) Hypomagnesemia (5) Non-insulin dependent type 2 diabetes mellitus (6) Hypokalemia (7) Unvaccinated for covid-19 (8) Cochlear implant status (9) COVID-19 virus infection Status: Acute (10) Paroxysmal atrial fibrillation Status: Acute (11) Hypertension Status: Chronic (12) Hyperlipidemia Status: Chronic NOEMI PARMAR MD Dec 16, 2021 11:47
[2021-12-16] MEDS ORDERED: MECLIZINE 25 MG (ANTIVERT) TAB PO PRN (12:00)
[2021-12-16] MEDS ORDERED: guaiFENesin (MUCINEX) 600 MG TAB PO NR (12:00)
--- NOTE | 2021-12-16 13:20 | Physical Therapy Evaluation ---
PT Evaluation-General Medical Diagnosis Admission Date Dec 16, 2021 at 01:00 Medical Diagnosis: COVID-19 Onset Date: Dec 14, 2021 Therapy Diagnosis Therapy Diagnosis: weakness Height/Weight Height (Feet): 5 Height (Inches): 11.00 Weight (Pounds): 243 Weight (Ounces): 0 Precautions Precautions/Isolations: Airborne Isolation Weight Bear Status Full Weight Bearing Full Weight Bearing Referral Physician: Joanne Parmar MD Reason for Referral: Strengthening, Gait Medical History Pertinent Medical History: CAD, HTN Additional Medical History hypercholesterolemia, (B) cochlear implant, 3x cardiac stent Current History Positive COVID-19 Reviewed History: Yes Social History Home: Single Level Current Living Status: Significant Other Entry Into Home: Stairs With Railing PT Steps Into Home: 3 Prior Prior Level of Function SCALE: Activities may be completed with or without assistive devices. 6-Kcospakdgo-qjrocql completes the activity by him/herself with no assistance from a helper. 5-Set-up or Clean-up Assistance-helper sets up or cleans up; patient completes activity. Chunky assists only prior to or following the activity. 4-Supervision or Touching Assistance-helper provides verbal cues and/or touching /steadying and/or contact guard assistance as patient completes activity. Assistance may be provided throughout the activity or intermittently. 3-Partial/Moderate Assistance-helper does LESS THAN HALF the effort. Chunky lifts, holds or supports trunk or limbs, but provides less than half the effort. 2-Substantial/Maximal Assistance-helper does MORE THAN HALF the effort. Chunky lifts or holds trunk or limbs and provides more than half the effort. 7-Vxasggzos-csyjmv does ALL the effort. Patient does none of the effort to complete the activity. Or, the assistance of 2 or more helpers is required for the patient to complete the activity. If activity was not attempted, code reason: 7-Patient Refused. 9-Not Applicable-not attempted and the patient did not perform the activity before the current illness, exacerbation or injury. 10-Not Attempted due to Environmental Limitations-(lack of equipment, weather restraints, etc.). 88-Not Attempted due to Medical Conditions or Safety Concerns. Bed Mobility: 6 Transfers (B,C,W/C): 6 Gait: 6 Stairs: 6 Indoor Mobility (Ambulation): Independent Stairs: Independent Prior Devices Use: None PT Evaluation-Current Subjective Pt notes that now that he is on oxygen he is feeling much better. Pain Numeric Pain Scale: 0-No Pain Location: No Pain Reported Pt/Family Goals Return home Objective Patient Orientation: Person, Place, Time, Situation Attachments: Oxygen, IV ROM/Strength ROM Upper Extremities WFL ROM Lower Extremities WFL Strength Upper Extremities 4+/5 Strength Lower Extremities 4+/5 Integumentary/Posture Bowel Incontinence: No Bladder Incontinence: No Neuromuscular (Tone, Coordination, Reflexes) Intact Sensory Vision: Functional Hearing: Hearing Aid/Aides Sensation Right Upper Extremit: Intact Sensation Left Upper Extremity: Intact Sensation Right Lower Extremit: Intact Sensation Left Lower Extremity: Intact Transfers Roll Left to Right (QC): 6 Sit to Lying (QC): 6 Lying to Sitting/Side of Bed(Q: 6 Sit to Stand (QC): 6 Toilet Transfer (QC): 6 Gait Does the Patient Walk?: Yes Mode of Locomotion: Walk Anticipated Mode of Locomotion: Walk Walk 10 feet (QC): 6 Walk 50 ft with 2 Turns(QC): 88 Walk 150 ft (QC): 88 Walking 10ft/uneven surface-QC: 88 Distance: 20ft Gait Assistive Device: None Comments/Gait Description Pt is limited to ambulation in the room due to COVID, IV, oxygen, and telemetry. He is (I) with bed mobility, transfer, and ambulation. Wheelchair Training Does the Pt Use a Wheelchair?: No Balance Sitting Static: Normal Sitting Dynamic: Normal Standing Static: Normal Standing Dynamic: Normal Assessment/Needs Pt is (I) with bed mobility, transfers, and gait when the attachments are removed. He is able to perform supine LE and UE exercises (I). Rehab Potential: Good PT Burrer Operator Goals Nursing Home Goals PT Burrer Operator Goals Time Frame: Dec 17, 2021 Roll Left & Right (QC): 6 Sit to Lying (QC): 6 Lying-Sitting on Side/Bed(QC): 6 Sit to Stand (QC): 6 Chair/Baq-tz-Mhmyj Xfer(QC): 6 Toilet Transfer (QC): 6 PT Plan Treatment/Plan Treatment Plan: Discontinue PT, goals met Treatment Duration: Dec 17, 2021 Frequency: Estimated Hrs Per Day: .5 hour per day Patient and/or Family Agrees t: Yes Pt has been evaluated and is able to (I) manage mobility. He does not require follow PT care. Discharge Recommendations Plan Discharge with patient to perform supine bed exercises (I). Pt is (I) with bed mobility, transfers, and gait. Time Time In: 1216 Time Out: 1245 DATE: Dec 16, 2021 Total Billed Treatment Time: 29 Total Billed Treatment 1, [facility] 29 CARA MYERS PT Dec 16, 2021 13:19
[2021-12-16] MEDS ORDERED: MOLN200C PO (13:56)
[2021-12-16] MEDS: RT-ALBUTEROL HFA 8.5 GM INHALER IH SCH (20:53)
[2021-12-16] MEDS ORDERED: MONTELUKAST 10 MG (SINGULAIR) TAB PO SCH (21:00)
[2021-12-16] MEDS: MOLNUPIRAVIR 200 MG PO SCH (21:18)
[2021-12-16] MEDS: guaiFENesin (MUCINEX) 600 MG TAB PO SCH (21:18)
[2021-12-17] VITALS: BP 128/79
[2021-12-17 01:00] VITALS: BP 129/76
[2021-12-17 02:00] VITALS: BP 123/72
[2021-12-17 04:00] VITALS: BP 150/101
[2021-12-17] MEDS: CEFEPIME 1,000 MG/NS 50 ML IVPB IV SCH ×4 (04:08→09:35)
[2021-12-17] MEDS: VASOPRESSIN INJECTION 20 UNIT in NS (IVPB) 100 ML IV SCH (04:14)
[2021-12-17 05:25] LABS: CALCIUM 8.9 MG/DL (8.5-10.1); CREATININE SERUM 0.64 MG/DL (0.60-1.30); MAGNESIUM 1.7 MG/DL (1.6-2.4); POTASSIUM 3.3 MMOL/L (3.6-5.0)
[2021-12-17] MEDS ORDERED: MAGNESIUM 1 GM/100 ML IVPB 100 ML IV SCH (06:00)
[2021-12-17] MEDS ORDERED: KCL 20 MEQ TAB (K-DUR) PO SCH (06:00)
[2021-12-17] MEDS ORDERED: POTASSIUM CL 10MEQ/50ML IVPB 50 ML IV SCH (06:00)
[2021-12-17] MEDS: MAGNESIUM 1 GM/100 ML IVPB 100 ML IV SCH ×2 (06:24→09:15)
[2021-12-17] MEDS: CATHETER FLUSH 10 ML SYR IVP SCH (06:29)
[2021-12-17] MEDS: inSUlin ASPART (NovoLOG) 1 UNIT/0.01 ML (CHARGE PER UNIT) SC SCH ×2 (06:30→10:41)
[2021-12-17 08:00] VITALS: BP 143/93
[2021-12-17 09:00] VITALS: BP 156/85
[2021-12-17] MEDS ORDERED: CLOPIDOGREL 75 MG (PLAVIX) TABLET PO SCH (09:00)
[2021-12-17] MEDS: KCL 20 MEQ TAB (K-DUR) PO SCH ×2 (09:16→10:23)
[2021-12-17] MEDS: MOLNUPIRAVIR 200 MG PO SCH (09:16)
[2021-12-17] MEDS: guaiFENesin (MUCINEX) 600 MG TAB PO SCH (09:16)
--- NOTE | 2021-12-17 10:16 | Discharge Summary ---
Diagnosis/Chief Complaint Date of Admission Dec 16, 2021 at 01:00 Date of Discharge Discharge Date: Dec 17, 2021 Admission Diagnosis Acute hypoxic respiratory failure due to COVID19 Primary Care Urbano Sawyer DO Discharge Diagnosis (1) CAD (coronary artery disease) (2) HLD (hyperlipidemia) (3) Essential (primary) hypertension (4) Hypomagnesemia (5) Non-insulin dependent type 2 diabetes mellitus (6) Hypokalemia (7) Unvaccinated for covid-19 (8) Cochlear implant status (9) COVID-19 virus infection Status: Acute (10) Paroxysmal atrial fibrillation Status: Acute (11) Hypertension Status: Chronic (12) Hyperlipidemia Status: Chronic Discharge Summary Discharge Physical Exam Allergies: Coded Allergies: pseudoephedrine (Verified Adverse Reaction, Mild, passed out, 10/19/18) Patient states the only thing he has had a reaction to is the advil cold and sinus he received at a conference once and it made him pass out, he wishes to not receive this medication Vitals & I&Os Vital Signs Date Time Temp Pulse Resp B/P (MAP) Pulse Ox O2 Delivery O2 Flow Rate FiO2 12/17/21 11:09 Room Air 12/17/21 10:42 94 12/17/21 08:00 36.4 12/17/21 08:00 59 18 143/93 (110) 2.00 General Appearance: No Apparent Distress, WD/WN, Chronically ill Respiratory: Lungs Clear, No Accessory Muscle Use Cardiovascular: Regular Rate, Rhythm, No Murmur Gastrointestinal: Normal Bowel Sounds, Soft Neurologic/Psychiatric: Alert, Oriented x3 Hospital Course Patient was admitted to the hospital secondary to acute hypoxic respiratory failure secondary to COVID-19. He originally required BiPAP to maintain his oxygen saturations but quickly improved and was able to be titrated down to nasal cannula. He had already per filled Mulnupiravir as an outpatient so this was continued. He was also treated with Decadron. His symptoms greatly improved and he was insistent upon discharge home. I did discuss with him the natural course of COVID and that he may get worse before he gets better. He was quite tearful and insistent upon going home. He states he does not feel that he can heal here in the hospital and that he does not trust this hospital. I did test him for oxygen and he did not require any. He was discharged home in improved condition with strict instructions to return to the hospital for any worsening symptoms or hypoxia. I did call and update his primary care physician of this as well. Dr. Sawyer stated he was aware and has been talking with the family throughout the weekend and will be back in the office on December 20. I attempted to call his but there was no answer. Labs (last 24 hrs) Laboratory Tests 12/16/21 16:04: Glucometer 116H 12/16/21 21:00: Glucometer 128H 12/17/21 04:55: Sodium Level 139, Potassium Level 3.3L, Chloride Level 105, Carbon Dioxide Level 22, Anion Gap 12, Blood Urea Nitrogen 15, Creatinine 0.64, Estimat Glomerular Filtration Rate 98, BUN/Creatinine Ratio 23, Glucose Level 126H, Calcium Level 8.9, Magnesium Level 1.7 12/17/21 10:32: Glucometer 133H Patient resulted labs reviewed. Pending Labs Laboratory Tests 12/17/21 04:55: Sodium Level 139, Potassium Level 3.3, Chloride Level 105, Carbon Dioxide Level 22, Anion Gap 12, Blood Urea Nitrogen 15, Creatinine 0.64, Estimat Glomerular Filtration Rate 98, BUN/Creatinine Ratio 23, Glucose Level 126, Calcium Level 8.9, Magnesium Level 1.7 12/17/21 10:32: Glucometer 133 Imaging: Reviewed Imaging Report Discussion & Recommendations Discharge Planning: >30 minutes discharge planning Discharge Home Medications: Active Scripts Active Reported Metoprolol Succinate 25 Mg Tab.er.24h 25 Mg PO DAILY Atorvastatin Calcium 40 Mg Tablet 40 Mg PO HS Diltiazem ER (Diltiazem HCl) 240 Mg Capsule.er 240 Mg PO DAILY Omeprazole 40 Mg Capsule.dr 40 Mg PO DAILY Clopidogrel (Clopidogrel Bisulfate) 75 Mg Tablet 75 Mg PO DAILY Oxybutynin Chloride ER (Oxybutynin Chloride) 10 Mg Tab.er.24 1 Tab PO BID Cefdinir 300 Mg Capsule 1 Tab PO BID Albuterol Sulfate 0.63 Mg/3 Ml Vial.neb 1 Ea INH Q6H PRN Dexamethasone 6 Mg Tablet 6 Mg PO DAILY 10 Days Molnupiravir (Eua) (Molnupiravir) 200 Mg Capsule 800 Mg PO BID Sinus Rinse Refill Packets (Sodium Chloride/Sodium Bicarb) 1 Each Packet 1 Packet NS DAILY [place] Saline Nasal Gel (Sodium Chloride/Aloe Vera) 14.1 Gm Gel..gram. TP BID Vitamin B-12 (Cyanocobalamin (Vitamin B-12)) 500 Mcg Tablet 500 Mcg PO DAILY Vitamin D3 (Cholecalciferol (Vitamin D3)) 2,000 Unit Capsule 2,000 Unit PO DAILY Systane Ultra 0.4-0.3% Eye Drp (Propylene Glycol/Peg 400/Pf) 1 Each [place] 1 Drop OU BID Voltaren (Diclofenac Sodium) 100 Gm Gel..gram. TOP BID PRN Fluticasone Propionate 16 Gm [place].susp 2 [place] NS BID Losartan-Hctz 100-25 mg Tab (Losartan/Hydrochlorothiazide) 1 Each Tablet 1 Tab PO DAILY Meclizine HCl 25 Mg Tablet 25 Mg PO TID Metformin HCl 500 Mg Tablet 500 Mg PO BID WITH MEALS Montelukast Sodium 10 Mg Tablet 10 Mg PO DAILY Meloxicam 15 Mg Tablet 15 Mg PO HS Instructions to patient/family Please see electronic discharge instructions given to patient. Problem Qualifiers (1) CAD (coronary artery disease): Coronary Disease-Associated Artery/Lesion type: [place] artery [place] vs. transplanted heart: [place] heart Associated angina: without angina Qualified Codes: I25.10 - Atherosclerotic heart disease of [place] coronary artery without angina pectoris NOEMI CHAIDEZ MD Dec 17, 2021 10:16
[2021-12-17] MEDS ORDERED: DEXA6TAB PO (10:20)
[2021-12-17] MEDS ORDERED: MTP25TSR PO (10:20)
[2021-12-17] MEDS ORDERED: CEFD300C3 PO (10:20)
[2021-12-17] MEDS ORDERED: ALBU0.63 INH (10:20)
[2021-12-17] MEDS: RT-ALBUTEROL HFA 8.5 GM INHALER IH SCH (10:20)
[2021-12-17] MEDS ORDERED: OXYB10TA29 PO (10:20)
[2021-12-17] MEDS ORDERED: DILT240C87 PO (10:20)
[2021-12-17] MEDS ORDERED: ATOR40TA70 PO (10:20)
[2021-12-17] MEDS ORDERED: CLOP75TA28 PO (10:20)
[2021-12-17] MEDS ORDERED: OMEP40CA6 PO (10:20)
[2021-12-17] MEDS: NOREPINEPHRINE 8 MG/250 ML 250 ML IV SCH (10:23)
[2021-12-17] MEDS: LACTATED RINGERS 1,000 ML IV SCH (11:19)
== END 2021-12-17 12:51 | disposition home or self-care (01) | DRG 177 ==
LOC: EDUNIT# 00:51 → ER 00:53 → 4TH 01:00 → ICU 03:15
PROVIDERS: ADMIT Family Medicine; ATTEND Family Medicine
PROC: 8E0ZXY6 Isolation (ICD-10-PCS; principal; 2021-12-16)
DX: U07.1 COVID-19 (principal); J96.01 Acute respiratory failure with hypoxia; I25.10 Atherosclerotic heart disease of native coronary artery without angina pectoris; E78.5 Hyperlipidemia, unspecified; I10 Essential (primary) hypertension; E83.42 Hypomagnesemia; E11.9 Type 2 diabetes mellitus without complications; E87.6 Hypokalemia; Z28.310 Unvaccinated for COVID-19; I48.0 Paroxysmal atrial fibrillation; Z95.5 Presence of coronary angioplasty implant and graft; E78.00 Pure hypercholesterolemia, unspecified; K21.9 Gastro-esophageal reflux disease without esophagitis; M19.90 Unspecified osteoarthritis, unspecified site; G89.29 Other chronic pain; M54.9 Dorsalgia, unspecified
CPT/HCPCS: 36415; 71045; 80048; 80053; 82805; 82947; 83605; 83735; 83880; 84145; 85025; 85610; 85730; 87040; 94640; 94660; 94664; 94761

== ENCOUNTER → 2022-10-08 | Outpatient (CLI) | payer MEDICARE, OTHER ==
[~2022-10-08] MED LIST changes: +ALBU0.63 INH; +ATOR40TA70 PO; +CEFD300C3 PO; +CLOP75TA28 PO; +DEXA6TAB PO; +DILT240C74 PO; -DILT240C87 PO; +MOLN200C PO; +MTP25TSR PO; +OMEP40CA6 PO; +OXYB10TA29 PO
== END ==
LOC: WOUNDCARE 10:05
PROVIDERS: ATTEND Family Medicine
DX: S41.112A Laceration without foreign body of left upper arm, initial encounter (principal); T45.515A Adverse effect of anticoagulants, initial encounter
CPT/HCPCS: 99213